=== PATIENT | female | born 1950 | race Caucasian/White ===

== ENCOUNTER → 2020-01-16 14:40 | Outpatient (CLI) | payer MEDICARE, OTHER, SELFPAY ==
[2020-01-16 13:20] VITALS: BMI 31.0
== END ==
PROVIDERS: Referring Provider Physician Assistant Surgical; Visit Provider Physician Assistant Surgical
DX: U07.1 COVID-19 (principal)
CPT/HCPCS: 87635; U0003

== ENCOUNTER 2020-01-18 13:44 | Inpatient (IN) | payer MEDICARE, OTHER, SELFPAY ==
[2020-01-16 13:20] VITALS: BMI 31.0
[2020-01-18] VITALS (9 sets, daily range): BP systolic 118–146; BP diastolic 46–90; PULSE 71–89; RESP 17–26; TEMP 36–37.1; O2SAT 92–97; BMI 30.5
--- NOTE | 2020-01-18 13:53 | RAD_ITS ---
STUDY: X-RAY CHEST REASON FOR EXAM: Female, 69 years old. cough, fatigue, sob TECHNIQUE: AP COMPARISON: None. FINDINGS: EKG leads project over the chest. The lungs are clear and expanded. There is no demonstrated pleural abnormality. Normal size heart. Normal mediastinum and jeremiah. Normal visualized pulmonary arteries. There is atherosclerotic tortuosity of the aortic arch and descending thoracic aorta. No acute bony process. Normal visualized ribs, clavicles, and shoulders. There is no demonstrated abnormality of the visualized soft tissue structures of the upper abdomen. RAD/Chest 1 View (Portable) IMPRESSION: No airspace consolidation or pleural effusion. Electronically Signed: Eduin Tinsley MD (Brooks) at 14:49 EST , Service support ,
--- NOTE | 2020-01-18 13:53 | EKG12_ITS ---
Test Reason : SOB Blood Pressure : / mmHG Vent. Rate : 088 BPM Atrial Rate : 088 BPM P-R Int : 140 ms QRS Dur : 092 ms QT Int : 368 ms P-R-T Axes : 056 012 028 degrees QTc Int : 445 ms Normal sinus rhythm Normal ECG Confirmed by XIN ZAMORA, MARGARITA ([id number]), story editor HEDY JUSTIN ([id number]) on 01/20/2020 9:19:08 AM Referred By: RIGO Confirmed By:MARGARITA LAUREN MD
--- NOTE | 2020-01-18 13:54 | ED.VIS.GEN ---
History of Present Illness Chief Complaint: Cough Informant: Patient Onset: Days Context: Gradual Onset Timing: Continuous Current Severity: Moderate Maximum Severity: Severe Narrative: The patient is a 69-year-old female with medical history significant for anxiety, asthma, and thyroid disease who presents to the emergency department with Covid symptoms. Patient states she has been sick for about a week. She states that her symptoms initially started with fever, chills, mild cough. She said change in taste and smell. For the past few days, she has had diarrhea. She states that today, she began to have increasing right-sided chest pain. She is also had pain with taking a deep breath. She feels like she cannot catch her breath. She has mild nausea but no vomiting. She states that she has not used her inhaler at home. Her son-in-law who she was also exposed to tested positive for Covid this weekend. She was seen at urgent care and had a test done, but it is currently pending. She is not on any immunosuppressants. Prior similar symptoms: No Recent Illness/Hospitalization: No Past Medical History - Allergies and Home Meds Allergies/Adverse Reactions: Allergies butorphanol [From Stadol] Allergy (Unknown, Verified 01/18/20 13:44) unknown codeine Allergy (Unknown, Verified 01/18/20 13:44) unknown morphine Allergy (Unknown, Verified 01/18/20 13:44) unknown Primary Care Physician: Herbert Esquivel,Out of [NON-STAFF] - Prior records reviewed: Yes Past Medical History: - - Asthma, thyroid disease, GERD Surgical History: noncontributory Smoking Status: Never smoker Review of Systems General: Reports: Chills, Fever. Denies: Sweats Eyes: Denies: Visual changes - bilaterally, Diplopia ENT: Denies: Rhinorrhea, Sore throat Cardiovascular: Denies: Chest pain, Palpitations Respiratory: Reports: Dyspnea, Cough. Denies: Dyspnea on exertion Gastrointestinal: Reports: Nausea, Diarrhea. Denies: Abdominal pain, Vomiting, Melena, Hematochezia Genitourinary: Denies: Dysuria, Hematuria, Frequency Musculoskeletal: Denies: Back pain, Extremity Pain Skin: Denies: Rash, Wounds Neurological: Denies: Headache, Weakness, Numbness Physical Exam Vital Signs/Narrative: Vital Signs Temp Pulse Resp BP Pulse Ox 01/18/20 13:45 96.8 F L 89 18 138/46 H 93 Inital Vital Signs reviewed: Yes General: Well nourished, Well developed, No Acute Distress Head: Normocephalic, Atraumatic Eyes: Perrl, EOMI ENT: No rhinorrhea, Dry mucous membranes Neck: Supple, Nontender Cardiovascular: Regular rate, Regular rhythm, No murmurs Respiratory: No distress, Chest nontender, Wheezing, Diminished, Decreased Air Movement Abdomen: Soft, Nontender, Nondistended, Normal bowel sounds Back: Nontender, Normal Inspection Extremities: Nontender, No edema Skin: Normal color, No rash Neurological: Alert, Oriented x3, Cranial nerves II-XII grossly intact, Normal Strength, Normal Sensation Psychological: Normal affect, Normal Mood Diagnostic/Tx/Re-eval Clinical Impression(s) from Imaging Studies Chest X-Ray 01/18/20 13:53 IMPRESSION: No airspace consolidation or pleural effusion. Electronically Signed: Eduin Tinsley MD (Brooks) at 14:49 EST , Service support , Chest CTA 01/18/20 14:37 Abnormal Lab Results 01/18/20 01/18/20 01/18/20 14:05 14:05 14:05 WBC 5.9 RBC 5.46 H Hgb 15.1 H Hct 47.6 H MCV 87.2 MCH 27.7 MCHC 31.7 L RDW Std Deviation 38.6 RDW Coeff of Shirlene 12.1 Plt Count 164 MPV 11.7 Immature Gran % (Auto) 0.200 Neut % (Auto) 68.4 Lymph % (Auto) 19.1 [place] % (Auto) 11.6 H Eos % (Auto) 0.2 Baso % (Auto) 0.5 Absolute Neuts (auto) 4.1 Absolute Lymphs (auto) 1.13 Nucleated RBC % 0 Fibrinogen 680 H D-Dimer Quant (PE/DVT) 0.72 H* Sodium 139 Potassium 3.9 Chloride 104 Carbon Dioxide 30.0 Anion Gap 5 BUN 11 Creatinine 0.90 Estim Creat Clear Calc 55.75 Est GFR (MDRD) Af Amer 80 Est GFR (MDRD) Non-Af 66 BUN/Creatinine Ratio 12.3 Glucose 116 H Lactic Acid Calcium 9.2 Total Bilirubin 0.50 AST 31 ALT 30 Alkaline Phosphatase 117 Troponin I < 0.015 Total Protein 7.8 Albumin 3.5 Globulin 4.3 H Albumin/Globulin Ratio 0.8 L Procalcitonin 01/18/20 01/18/20 14:05 14:05 WBC RBC Hgb Hct MCV MCH MCHC RDW Std Deviation RDW Coeff of Shirlene Plt Count MPV Immature Gran % (Auto) Neut % (Auto) Lymph % (Auto) [place] % (Auto) Eos % (Auto) Baso % (Auto) Absolute Neuts (auto) Absolute Lymphs (auto) Nucleated RBC % Fibrinogen D-Dimer Quant (PE/DVT) Sodium Potassium Chloride Carbon Dioxide Anion Gap BUN Creatinine Estim Creat Clear Calc Est GFR (MDRD) Af Amer Est GFR (MDRD) Non-Af BUN/Creatinine Ratio Glucose Lactic Acid 1.8 Calcium Total Bilirubin AST ALT Alkaline Phosphatase Troponin I Total Protein Albumin Globulin Albumin/Globulin Ratio Procalcitonin < 0.04 - Rhythm Strip Rhythm Strip: Sinus Rhythm Rate: 90 Ectopy: None - EKG Initial EKG Interpretation: Sinus Rhythm, No Acute Injury Pattern Prior: Unchanged - Medical Decision Making Patient presents with cough and shortness of breath. She has audible wheezing and diminished air movement. We did attempt an inhaler, but she had persistent bronchospasm and cough. This obviously is not helping. The patient does have history of asthma. She was given IV Decadron and fluids. Covid was obtained was positive. Her D-dimer was also mildly elevated. We did obtain a CTA of the chest. There is no evidence of pulmonary embolus. She does have significant viral pneumonia. On reevaluation, the patient still has persistent audible wheezing and increased respiratory drive. With her underlying lung disease, along with her persistent tachypnea, I do feel that she would benefit from admission. The patient was discussed with the hospitalist. Impression 1. COVID-19 2. Bilateral viral pneumonia 3. Persistent bronchospasm and tachypnea ED Disposition - Plan for ED Patient: Referrals: [facility] Doctor,Out of [NON-STAFF] -
--- NOTE | 2020-01-18 13:56 | NURSING ---
NO OLD EKGS
[2020-01-18] MEDS: Acetaminophen 500 MG Tablet 1000 MG PO (14:12)
[2020-01-18] MEDS: 0.9% Normal Saline 1,000 ML 125 ML IV ×2 (14:13→18:48)
[2020-01-18 14:23] LABS: Absolute Lymphocyte Count 1.13 X10^3/uL (0.83-4.51); Absolute Neutrophil Count 4.1 X10^3/uL (2.0-7.7); Basophil# 0.03 X10^3/uL; Basophil% 0.5 % (0-1); Eosinophil# 0.01 X10^3/uL; Eosinophils% 0.2 % (0-5); Hematocrit 47.6 % (37-47); Hemoglobin 15.1 g/dL (12.0-15.0); Lymphocyte # 1.13 X10^3/ul (4.0); Lymphocyte % 19.1 % (19-41); Mean Corp Hgb Conc 31.7 g/dL (32-36); Mean Corpuscular Hgb 27.7 pg (27.0-32.0); Mean Corpuscular Volume 87.2 fL (81-99); Mean Platelet Vol. 11.7 fl (6.2-12.0); Monocyte# 0.69 X10^3/uL; Monocyte% 11.6 % (0-10); NRBC Flagged by Analyzer 0 % (0-5); Neutrophil # 4.06 X10^3/uL (2.7-7.7); Neutrophil % 68.4 % (47-70); Platelet Count 164 K/mm3 (150-450); RBC Distribution Width CV 12.1 % (11.6-14.6); RBC Distribution Width SD 38.6 fl (35.1-43.9); Red Blood Count 5.46 M/mm3 (4.2-5.4); White Blood Count 5.9 K/mm3 (4.4-11.0)
[2020-01-18 14:32] LABS: Fibrinogen 680 mg/dl (203-444)
[2020-01-18 14:36] LABS: D-Dimer Quantitative (DVT/PE) 0.72 FEU/ug/m (0.27-0.49)
--- NOTE | 2020-01-18 14:37 | CT_ITS ---
STUDY: CTA CHEST REASON FOR EXAM: Female, 69 years old. DYSPNEA/ELEV DDIMER/COUGH/FEVER. Hx of asthma, GERD and hypothyroid RADIATION DOSAGE (If Supplied By Facility): CTDIvol = ( 13.80 ) mGy, DLP = ( 529.15 ) mGycm TECHNIQUE: The examination was performed with the intravenous administration of IV 100mL Isovue-370. Post-processing of the angiographic images was performed, with multiplanar reformation and 3D reconstruction. Individualized dose optimization techniques were used for this CT. COMPARISON: 01/18/2020 FINDINGS: Pulmonary artery and its branches demonstrate no evidence for filling defects to suggest acute pulmonary embolism. No evidence for aortic dissection Patchy areas of bilateral groundglass densities are seen concerning for atypical viral pneumonia. Few nodules in the right lower lobe also seen largest measuring up to 1.2 cm which need further assessment with follow-up imaging in 3-6 months. No evidence for mediastinal lymphadenopathy. No pericardial effusion. Significant wall thickening of the distal esophagus possibly relate with esophagitis however best assessed with endoscopy No acute abnormalities in the upper abdomen. Osseous structures demonstrate no acute abnormalities. Mild degenerative changes of the thoracic spine. IMPRESSION: No evidence for acute pulmonary embolism. No evidence for aortic dissection or aneurysm. Patchy areas of bilateral groundglass densities are seen highly concerning for atypical viral pneumonia. Few nodules in the right lower lobe also seen largest measuring up to 1.2 cm which need further assessment with follow-up imaging in 3-6 months. Electronically Signed: Obie Marino, at 15:24 EST Tel , Service support , CT/CTA Chest W/WO Contrast
--- NOTE | 2020-01-18 14:38 | NURSING ---
Critical d-dimer reported to Dr. Lopez
[2020-01-18 14:42] LABS: ALB/GLOB Ratio 0.8 RATIO (0.9-2.4); AST(SGOT) 31 U/L (15-37); Alanine Aminotransfer ALT/SGPT 30 U/L (13-56); Albumin, Serum 3.5 g/dL (3.2-5.0); Alkaline Phosphatase 117 U/L (45-117); Anion Gap 5 (5-15); BUN 11 mg/dL (7-18); BUN/Creat Ratio 12.3 RATIO (10-20); Calcium,Total 9.2 mg/dL (8.5-10.1); Chloride 104 mmol/L (98-107); EST Glomerular Filtration Rate 66 mL/min (>60); Est Glom Filt Rate - Afr Amer 80 mL/min (>60); Estimated Creatinine Clearance 55.75 ml/min; Globulin 4.3 g/dL (2.2-4.2); Glucose 116 mg/dL (74-106); Potassium 3.9 mmol/L (3.5-5.1); Protein, Total 7.8 g/dL (6.4-8.2); Sodium Level 139 mmol/L (136-145)
[2020-01-18 14:53] LABS: Lactic Acid 1.8 mmol/L (0.4-1.9)
[2020-01-18 15:08] LABS: Procalcitonin < 0.04 ng/mL (0.00-0.09)
[2020-01-18] MEDS: dexAMETHasone 4 MG/ML Vial 6 MG IV (15:12)
[2020-01-18] MEDS: Ipratropium/Albuterol Sulfate 3 ML AMPUL.NEB INHALATION ×2 (15:30→19:40)
--- NOTE | 2020-01-18 15:39 | NURSING ---
DR ROLDAN FOR DR SIERRA
--- NOTE | 2020-01-18 15:39 | NURSING ---
MS2 COVID COVID PNEUMONIA, BRONCHOSPASM JAMAR
--- NOTE | 2020-01-18 15:46 | PCM.HP.STD ---
History of Present Illness Date of Admission: 01/18/20 Chief Complaint: SOB The patient is a 69 year old F with a PMH as below who presents to the hospital with cough and worsening shortness of breath that started about a week ago. Her son-in-law also tested positive for Covid this weekend. She initially had a fever, chills, and a mild cough and now she also admits to having a change in her taste in her smell. She is also had diarrhea for the last few days and then she started having increasing right-sided chest pain, and now she feels significantly short of breath. She does not require oxygen at the moment but she is tachypneic. Her D-dimer is slightly elevated though not significant for age. She did have a CTA of her chest which was unremarkable for pulmonary embolism, but it did demonstrate bilateral groundglass opacities. She was given breathing treatments and a dose of Decadron in the ER. 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 Denies: Weight Change HEENT: Denies: Head Aches, Sinus Congestion, Sinus Drainage Cardiovascular: Denies: Chest Pain, Palpitations Respiratory: Reports: Cough, Shortness of Breath. Denies: Shortness of breath at rest, Sputum production Gastrointestinal: Reports: Diarrhea, Nausea. Denies: Abdominal Pain, Vomiting Genitourinary: Denies: Dysuria Musculoskeletal: Denies: Joint Pain, Joint Tenderness Skin: Denies: Rash, Wounds Neurological: Denies: Numbness, Tingling, Focal weakness Psychiatric: Denies: Anxiety, Depression Hematologic/ Lymphatic: Denies: Easy Bruising, Easy Bleeding VTE Information - Inpt Only VTE Present on Admission: No - Physical Exam Vitals/I&O's: Vital Signs Temp Pulse Resp BP Pulse Ox 96.8 F L 89 26 H 118/79 93 01/18/20 13:45 01/18/20 15:29 01/18/20 15:29 01/18/20 15:15 01/18/20 15:15 Oxygen Delivery Method Room Air Weight: 195 lb Body Mass Index (BMI) 30.5 General: Alert, Oriented x3, Cooperative, No apparent distress HEENT: Atraumatic, PERRLA, EOMI, Normocephalic Oral: Dry Mucosa Neck: Supple, No JVD Lungs: No rhonchi, No wheeze, Diminished, Wheezes, - - Or air movement Cardiovascular: Regular rate, Regular Rhythm, Normal S1, Normal S2, No murmurs Abdomen: Soft, Non Tender, Non-Distended, No Hepato-splenomegaly Extremities: No edema, Capillary Refill Less than 3 Seconds Skin: No rashes, No breakdown Neurological: Neuro grossly intact, Sensory exam intact to light touch and pain Psych/Mental Status: Normal Affect, Appropriate Microbiology Past 72 Hours 01/18/20 14:15 Mucosa - Nose SARS-CoV-2 Antigen (Rapid) - Final SARS-CoV-2 (COVID 19) Laboratory Results 01/18/20 14:05: WBC 5.9, RBC 5.46 H, Hgb 15.1 H, Hct 47.6 H, MCV 87.2, MCH 27.7, MCHC 31.7 L, RDW Std Deviation 38.6, RDW Coeff of Shirlene 12.1, Plt Count 164, MPV 11.7, Immature Gran % (Auto) 0.200, Neut % (Auto) 68.4, Lymph % (Auto) 19.1, [place] % (Auto) 11.6 H, Eos % (Auto) 0.2, Baso % (Auto) 0.5, Absolute Neuts (auto) 4.1, Absolute Lymphs (auto) 1.13, Nucleated RBC % 0 01/18/20 14:05: Fibrinogen 680 H, D-Dimer Quant (PE/DVT) 0.72 H* 01/18/20 14:05: Sodium 139, Potassium 3.9, Chloride 104, Carbon Dioxide 30.0, Anion Gap 5, BUN 11, Creatinine 0.90, Estim Creat Clear Calc 55.75, Est GFR (MDRD) Af Amer 80, Est GFR (MDRD) Non-Af 66, BUN/Creatinine Ratio 12.3, Glucose 116 H, Calcium 9.2, Total Bilirubin 0.50, AST 31, ALT 30, Alkaline Phosphatase 117, Troponin I < 0.015, Total Protein 7.8, Albumin 3.5, Globulin 4.3 H, Albumin/Globulin Ratio 0.8 L 01/18/20 14:05: Lactic Acid 1.8 01/18/20 14:05: Procalcitonin < 0.04 Current Medications Sodium Chloride () 1,000 mls @ 125 mls/hr IV .Q8H JUAN JOSE Last Admin: 01/18/20 14:13 Dose: 125 mls/hr Documented by: Assessment/Plan All Active Problems (Last Reviewed 01/16/20 @ 13:21 by Emmanuel GALLOWAY, PA) Contact with or suspected exposure to other viral communicable disease (Acute) 1. Acute COVID-19 pneumonia/acute asthma exacerbation/viral gastroenteritis -Continue with Solu-Medrol for her asthma exacerbation as well as duo nebs -Solu-Medrol social cover the COVID-19 -We will continue with IV fluid secondary to dehydration from her diarrhea -CTA was negative for a PE 2. Hypothyroidism -Stable -Continue with Synthroid 3. GERD -Stable -Continue with PPI 4. Anxiety/depression -Stable -Continue with Cymbalta DVT: Lovenox OBSV E&M: [id number] Initial observation care L2
[2020-01-18] MEDS: 0.9% Saline Lock 10 ML Syringe IV (21:29)
[2020-01-19] VITALS (12 sets, daily range): BP systolic 132–158; BP diastolic 60–78; PULSE 68–86; RESP 16–22; TEMP 36.5–36.9; O2SAT 86–99
[2020-01-19] MEDS: 0.9% Saline Lock 10 ML Syringe IV ×2 (00:48→05:33)
[2020-01-19] MEDS: guaiFENesin 10 ML UDC (200MG/10ML) PO ×3 (00:55→10:43)
[2020-01-19] MEDS: Ipratropium/Albuterol Sulfate 3 ML AMPUL.NEB INHALATION ×5 (01:35→20:35)
[2020-01-19] MEDS: 0.9% Normal Saline 1,000 ML 125 ML IV ×2 (03:18→10:43)
[2020-01-19] MEDS: Enoxaparin 40 MG/0.4 ML Syringe SC ×2 (05:33→20:05)
[2020-01-19 05:37] LABS: Absolute Lymphocyte Count 0.52 X10^3/uL (0.83-4.51); Absolute Neutrophil Count 1.7 X10^3/uL (2.0-7.7); Hematocrit 39.7 % (37-47); Lymphocyte # 0.52 X10^3/ul (4.0); Lymphocyte % 21.5 % (19-41); Mean Corp Hgb Conc 32.7 g/dL (32-36); Mean Corpuscular Hgb 28.3 pg (27.0-32.0); Mean Corpuscular Volume 86.3 fL (81-99); Mean Platelet Vol. 11.8 fl (6.2-12.0); Monocyte# 0.16 X10^3/uL; Monocyte% 6.6 % (0-10); NRBC Flagged by Analyzer 0 % (0-5); Neutrophil # 1.74 X10^3/uL (2.7-7.7); Neutrophil % 71.9 % (47-70); POSITIVE DIFFERENTIAL YES; Platelet Count 155 K/mm3 (150-450); RBC Distribution Width SD 38.5 fl (35.1-43.9); White Blood Count 2.4 K/mm3 (4.4-11.0)
[2020-01-19 05:38] LABS: Differential Indicated SCAN CRITERIA MET
[2020-01-19 05:54] LABS: Anion Gap 7 (5-15); BUN 12 mg/dL (7-18); BUN/Creat Ratio 19.7 RATIO (10-20); Calcium,Total 8.2 mg/dL (8.5-10.1); Chloride 109 mmol/L (98-107); Creatinine, Serum 0.61 mg/dL (0.55-1.02); EST Glomerular Filtration Rate 103 mL/min (>60); Est Glom Filt Rate - Afr Amer 125 mL/min (>60); Estimated Creatinine Clearance 50.18 ml/min; Glucose 144 mg/dL (74-106); Potassium 4.1 mmol/L (3.5-5.1); Sodium Level 140 mmol/L (136-145)
[2020-01-19] MEDS: Acetaminophen 325 MG Tablet 650 MG PO (10:43)
--- NOTE | 2020-01-19 10:45 | PCM.PN.HOSP ---
Subjective: Patient seen and examined. SHe looked very weak and said she felt so. She was still short of breath and very lethargic. She denied fever, chills, but admitted to a cough which was nonproductive and was not improving. Review of systems was otherwise negative. She is on 3L of oxygen. Review of systems otherwise negative. She has otherwise remained hemodynamically stable. Vitals/I&O's: Vital Signs Temp Pulse Resp BP Pulse Ox 98.4 F 69 16 132/71 H 92 01/19/20 09:22 01/19/20 09:22 01/19/20 09:22 01/19/20 09:22 01/19/20 09:22 Oxygen Flow Rate (L/min) 3 Oxygen Delivery Method Nasal Cannula Weight: 195 lb Body Mass Index (BMI) 30.5 Intake and Output for Last 24 Hours 01/17/20 01/18/20 01/19/20 23:59 23:59 23:59 Intake Total 689.58 / 689.58 2076.08 / 2076.08 Balance 689.58 / 689.58 / General: Alert, Cooperative, No apparent distress, Lethargic HEENT: Atraumatic, PERRLA, EOMI, Normocephalic Oral: Dry Mucosa Neck: Supple, No JVD, Negative Carotid Bruits Lungs: - - diminished breath sounds bibasally, no wheezes or crackles. On 3L of oxygen by nasal canula Cardiovascular: Regular rate, Regular Rhythm, Normal S1, Normal S2, No murmurs Abdomen: Bowel Sounds Present, Soft, Non Tender, Non-Distended, No Hepato-splenomegaly Extremities: No clubbing, No cyanosis, No edema, Capillary Refill Less than 3 Seconds Skin: No rashes, No breakdown Musculoskeletal: No Tenderness to Palpation of Joints or Extremities Lymphatic: No Cervical, Supraclavicular, or Inguinal Adenopathy Neurological: Cranial nerves II-XII grossly intact, Neuro grossly intact, Motor Exam 5/5 strength throughout Psych/Mental Status: Normal Affect, Appropriate, Alert and oriented to time, place, person, mood and affect Microbiology Past 72 Hours 01/18/20 14:15 Mucosa - Nose SARS-CoV-2 Antigen (Rapid) - Final SARS-CoV-2 (COVID 19) Laboratory Results 01/18/20 14:05: WBC 5.9, RBC 5.46 H, Hgb 15.1 H, Hct 47.6 H, MCV 87.2, MCH 27.7, MCHC 31.7 L, RDW Std Deviation 38.6, RDW Coeff of Shirlene 12.1, Plt Count 164, MPV 11.7, Immature Gran % (Auto) 0.200, Neut % (Auto) 68.4, Lymph % (Auto) 19.1, [place] % (Auto) 11.6 H, Eos % (Auto) 0.2, Baso % (Auto) 0.5, Absolute Neuts (auto) 4.1, Absolute Lymphs (auto) 1.13, Nucleated RBC % 0 01/18/20 14:05: Fibrinogen 680 H, D-Dimer Quant (PE/DVT) 0.72 H* 01/18/20 14:05: Sodium 139, Potassium 3.9, Chloride 104, Carbon Dioxide 30.0, Anion Gap 5, BUN 11, Creatinine 0.90, Estim Creat Clear Calc 55.75, Est GFR (MDRD) Af Amer 80, Est GFR (MDRD) Non-Af 66, BUN/Creatinine Ratio 12.3, Glucose 116 H, Calcium 9.2, Total Bilirubin 0.50, AST 31, ALT 30, Alkaline Phosphatase 117, Troponin I < 0.015, Total Protein 7.8, Albumin 3.5, Globulin 4.3 H, Albumin/Globulin Ratio 0.8 L 01/18/20 14:05: Lactic Acid 1.8 01/18/20 14:05: Procalcitonin < 0.04 01/19/20 05:04: WBC 2.4 L, RBC 4.60, Hgb 13.0, Hct 39.7, MCV 86.3, MCH 28.3, MCHC 32.7, RDW Std Deviation 38.5, RDW Coeff of Shirlene 12.0, Plt Count 155, MPV 11.8, Immature Gran % (Auto) 0.000, Neut % (Auto) 71.9 H, Lymph % (Auto) 21.5, [place] % (Auto) 6.6, Eos % (Auto) 0.0, Baso % (Auto) 0.0, Absolute Neuts (auto) 1.7 L, Absolute Lymphs (auto) 0.52 L, Nucleated RBC % 0, Diff Path Review June01/19/20 05:04: Sodium 140, Potassium 4.1, Chloride 109 H, Carbon Dioxide 24.0, Anion Gap 7, BUN 12, Creatinine 0.61, Estim Creat Clear Calc 50.18, Est GFR (MDRD) Af Amer 125, Est GFR (MDRD) Non-Af 103, BUN/Creatinine Ratio 19.7, Glucose 144 H, Calcium 8.2 L Diagnostic Data Chest X-Ray 01/18/20 13:53 IMPRESSION: No airspace consolidation or pleural effusion. Electronically Signed: Eduin Tinsley MD (Brooks) at 14:49 EST , Service support , Chest CTA 01/18/20 14:37 Current Medications Acetaminophen (Acetaminophen 325 Mg Tablet) 650 mg PO Q6H PRN PRN PRN Reason: Pain Score 1-10/Temp > 100.7 F Last Admin: 01/19/20 10:43 Dose: 650 mg Documented by: Albuterol/Ipratropium (Ipratropium/Albuterol Sulfate 3 Ml Ampul.Neb) 3 ml INHALATION Q4HWA.RT JUAN JOSE Last Admin: 01/19/20 08:09 Dose: 3 ml Documented by: Enoxaparin Sodium (Enoxaparin 40 Mg/0.4 Ml Syringe) 40 mg SC DAILY@0600 [facility] Last Admin: 01/19/20 05:33 Dose: 40 mg Documented by: Guaifenesin (Guaifenesin 10 Ml Udc (200mg/10ml)) 10 ml PO Q4H PRN PRN PRN Reason: COUGH Last Admin: 01/19/20 10:43 Dose: 10 ml Documented by: Sodium Chloride () 1,000 mls @ 125 mls/hr IV .Q8H JUAN JOSE Last Admin: 01/19/20 10:43 Dose: 125 mls/hr Documented by: Sodium Chloride () 500 mls @ 15 mls/hr IV PRN PRN PRN Reason: Blood Transfusion Sodium Chloride () 250 mls @ 15 mls/hr IV .[id number] PRN PRN Reason: Saline Flush Melatonin (Melatonin 3 Mg Tablet) 3 mg PO QHS PRN PRN PRN Reason: INSOMNIA Methylprednisolone (Methylprednisolone 40 Mg/Ml Vial) 40 mg IV Q8 JUAN JOSE Last Admin: 01/19/20 05:33 Dose: 40 mg Documented by: Ondansetron HCl (Ondansetron 4 Mg/2 Ml Vial) 4 mg IV Q8H PRN PRN PRN Reason: NAUSEA/VOMITING Sodium Chloride (0.9% Saline Lock 10 Ml Syringe) 10 - 40 ml IV UD PRN PRN Reason: SALINE FLUSH Last Admin: 01/19/20 05:33 Dose: 10 ml Documented by: STROKE Vital Signs/Narrative: Vital Signs Temp Pulse Resp BP Pulse Ox 01/19/20 09:22 98.4 F 69 16 132/71 H 92 Medical Necessity - Tobacco Use Smoking Status: Former smoker Assessment/Plan All Active Problems (Last Reviewed 01/16/20 @ 13:21 by Emmanuel GALLOWAY, PA) Contact with or suspected exposure to other viral communicable disease (Acute) #acute hypoxic respiratory insufficiency due to COVID 19 infection Currently on 3 L of oxygen. Switch IV Solu-Medrol to IV Decadron. Titrate oxygen to maintain saturation above 90%. Breathing treatments with bronchodilators. Consult ID to determine if patient will benefit from remdesivir and convalescent plasma. Continue gentle hydration with IV fluids until patient is able to take adequate oral diet. #COVID 19: as above. #Hypothyroidism: on synthroid # GERD: on PPI #Anxiety and depression: on cymbalta DVT prophylaxis: lovenox Inpatient E&M: [id number] [facility] Hosp L3
--- NOTE | 2020-01-19 12:20 | CASEMGMT ---
RN CM Note: If home oxygen is needed, [facility] [place] would be able to be serviced here as well as in her area in [place]. [facility] is close to her home and services her area with [place]. [address] [place] [address] PH: [phone]
--- NOTE | 2020-01-19 12:22 | CASEMGMT ---
Addendum entered by Gaetano Alex 01/19/20 12:53: Pt's home address: [address] [place] [address]. Information given to registration for updating and billing. Original Note: RN CM Assessment Note Introduced role of CM to patient. Demographics, PCP verified. Patient is from [place] and is staying with her daughter and son-in-law until the New Year. Her family has been tested, but results are pending. COVID TESTING: @ [facility] on 01/16/20- pending Presentation: shortness of breath Diagnosis: suspected COVID-19. PCP: Dr. Cedric Calvillo [facility] Specialists: none Insurance: [facility] Preferred Pharmacy: [facility], [facility] Prescription Benefit: yes LNOK: daughter and son in law Living Arrangements: staying independently with her family in [place].Denies care needs. Tranportation: drives, but family is able to provide transportation DME: pt uses nebulizer @ home, but forgot it in [place]. If oxygen is needed, [employer] as they are [employer] company and have DME provider near her home town who can take over servicing. [facility] [address] [place] [id number] PHONE [phone] FAX: [phone] Patient DC Goals: return to daughter's home DC Plan: anticipate return to daughter's home on dc. Recommend oxygen testing on dc. CM available for discharge planning coordination. Contact CM for any concerns/needs that may arise. Reagan GARCIA RN ACM
[2020-01-19 13:09] LABS: Pathologist Review Reviewed
--- NOTE | 2020-01-19 13:49 | CON.PCM_ITS ---
Problem List (1) COVID-19 Status: Acute Reason for Consult: covid Consulted by: Dr. Nicholas History of Present Illness: The patient is a 69 year old F presented with sx starting 01/10 of headache, fever, chills, diarrhea, aches, loss of taste/smell. Has been staying with daughter and son-in-law and their kids since early November. Daugher and son-in-law both sick with covid, recovering. She developed sx, tested (+) 01/14, worsening sx, came to ED, admitted, started on solumedrol, O2. Feeling a little better but not much. Full ROS Performed and neg except as noted above. - Medical History Surgical History: reviewed Allergies/Adverse Reactions: Allergies butorphanol [From Stadol] Allergy (Unknown, Verified 01/18/20 13:44) unknown codeine Allergy (Unknown, Verified 01/18/20 13:44) unknown morphine Allergy (Unknown, Verified 01/18/20 13:44) unknown Home Medications: Ambulatory Orders Medication Instructions Recorded Albuterol Sulfate [Albuterol 1 puff IH PRN PRN 01/18/20 Sulfate HFA] Duloxetine Hcl [Cymbalta] 60 mg PO QHS 01/18/20 Esomeprazole Mag Trihydrate 20 mg PO DAILY 01/18/20 [Nexium] Levothyroxine [Synthroid] 175 mcg PO DAILY 01/18/20 - Social History SMOKING STATUS:: Former smoker Vital Signs Temp Pulse Resp BP Pulse Ox 98.4 F 83 20 H 132/71 H 99 01/19/20 09:22 01/19/20 11:41 01/19/20 11:41 01/19/20 09:22 01/19/20 11:41 Oxygen Flow Rate (L/min) 3 Oxygen Delivery Method Nasal Cannula Weight: 88.451 kg Body Mass Index (BMI) 30.5 Microbiology Past 72 Hours 01/18/20 14:15 SARS-CoV-2 Antigen (Rapid) - Final Mucosa - Nose SARS-CoV-2 (COVID 19) Laboratory Tests Past 24 Hrs 01/18/20 01/18/20 01/18/20 14:05 14:05 14:05 WBC 5.9 RBC 5.46 H Hgb 15.1 H Hct 47.6 H MCV 87.2 MCH 27.7 MCHC 31.7 L RDW Std Deviation 38.6 RDW Coeff of Shirlene 12.1 Plt Count 164 MPV 11.7 Immature Gran % (Auto) 0.200 Neut % (Auto) 68.4 Lymph % (Auto) 19.1 Edgar % (Auto) 11.6 H Eos % (Auto) 0.2 Baso % (Auto) 0.5 Absolute Neuts (auto) 4.1 Absolute Lymphs (auto) 1.13 Nucleated RBC % 0 Diff Path Review Fibrinogen 680 H D-Dimer Quant (PE/DVT) 0.72 H* Sodium 139 Potassium 3.9 Chloride 104 Carbon Dioxide 30.0 Anion Gap 5 BUN 11 Creatinine 0.90 Estim Creat Clear Calc 55.75 Est GFR (MDRD) Af Amer 80 Est GFR (MDRD) Non-Af 66 BUN/Creatinine Ratio 12.3 Glucose 116 H Lactic Acid Calcium 9.2 Total Bilirubin 0.50 AST 31 ALT 30 Alkaline Phosphatase 117 Troponin I < 0.015 Total Protein 7.8 Albumin 3.5 Globulin 4.3 H Albumin/Globulin Ratio 0.8 L Procalcitonin 01/18/20 01/18/20 01/19/20 14:05 14:05 05:04 WBC 2.4 L RBC 4.60 Hgb 13.0 Hct 39.7 MCV 86.3 MCH 28.3 MCHC 32.7 RDW Std Deviation 38.5 RDW Coeff of Shirlene 12.0 Plt Count 155 MPV 11.8 Immature Gran % (Auto) 0.000 Neut % (Auto) 71.9 H Lymph % (Auto) 21.5 Edgar % (Auto) 6.6 Eos % (Auto) 0.0 Baso % (Auto) 0.0 Absolute Neuts (auto) 1.7 L Absolute Lymphs (auto) 0.52 L Nucleated RBC % 0 Diff Path Review Reviewed Fibrinogen D-Dimer Quant (PE/DVT) Sodium Potassium Chloride Carbon Dioxide Anion Gap BUN Creatinine Estim Creat Clear Calc Est GFR (MDRD) Af Amer Est GFR (MDRD) Non-Af BUN/Creatinine Ratio Glucose Lactic Acid 1.8 Calcium Total Bilirubin AST ALT Alkaline Phosphatase Troponin I Total Protein Albumin Globulin Albumin/Globulin Ratio Procalcitonin < 0.04 01/19/20 05:04 WBC RBC Hgb Hct MCV MCH MCHC RDW Std Deviation RDW Coeff of Shirlene Plt Count MPV Immature Gran % (Auto) Neut % (Auto) Lymph % (Auto) Edgar % (Auto) Eos % (Auto) Baso % (Auto) Absolute Neuts (auto) Absolute Lymphs (auto) Nucleated RBC % Diff Path Review Fibrinogen D-Dimer Quant (PE/DVT) Sodium 140 Potassium 4.1 Chloride 109 H Carbon Dioxide 24.0 Anion Gap 7 BUN 12 Creatinine 0.61 Estim Creat Clear Calc 50.18 Est GFR (MDRD) Af Amer 125 Est GFR (MDRD) Non-Af 103 BUN/Creatinine Ratio 19.7 Glucose 144 H Lactic Acid Calcium 8.2 L Total Bilirubin AST ALT Alkaline Phosphatase Troponin I Total Protein Albumin Globulin Albumin/Globulin Ratio Procalcitonin - Other Studies Radiology: [] reviewed Other Studies: [] Route of nutrition/ use of supplements: [] Nutritional Intake: [] IV Site: [] Bhatt Catheter: [] - Physical Exam General: Alert, Oriented x3, Cooperative HEENT: Atraumatic, PERRLA, EOMI Neck: Supple, No Nodes Lungs: Diminished Cardiovascular: Regular rate, Regular Rhythm Abdomen: Soft, Non Tender, Non-Distended Extremities: No edema Skin: No rashes IV Site: Peripheral, without redness Musculoskeletal: No Tenderness to Palpation of Joints or Extremities Neurological: Cranial nerves II-XII grossly intact - Assessment/Plan Antibiotics: [] Assessment/Plan: [] covid with hypoxia - sx started 01/10. CT neg for PE. D-dimer 0.7. On 3L today. Will change steroids to dex given better outcomes seen in covid. Will start remdesivir. Reviewed EUA and risks/benefits of convalescent plasma, and we agree to start. Will follow, thank you.
[2020-01-19] MEDS: dexAMETHasone 4 MG Tablet 6 MG PO (13:58)
[2020-01-20] VITALS (11 sets, daily range): BP systolic 117–138; BP diastolic 59–108; PULSE 76–92; RESP 14–24; TEMP 36.7–38.1; O2SAT 92–97
[2020-01-20] MEDS: 0.9% Normal Saline 1,000 ML 125 ML IV ×3 (00:27→18:52)
[2020-01-20] MEDS: guaiFENesin 10 ML UDC (200MG/10ML) PO (01:23)
[2020-01-20] MEDS: Acetaminophen 325 MG Tablet 650 MG PO (01:23)
[2020-01-20] MEDS: 0.9% Saline Lock 10 ML Syringe IV (06:30)
[2020-01-20] MEDS: Ondansetron 4 MG/2 ML Vial IV (06:30)
[2020-01-20 06:57] LABS: Hematocrit 38.9 % (37-47); Hemoglobin 12.8 g/dL (12.0-15.0); Mean Corp Hgb Conc 32.9 g/dL (32-36); Mean Corpuscular Hgb 28.9 pg (27.0-32.0); Mean Corpuscular Volume 87.8 fL (81-99); Mean Platelet Vol. 12.1 fl (6.2-12.0); Platelet Count 202 K/mm3 (150-450); RBC Distribution Width CV 12.4 % (11.6-14.6); RBC Distribution Width SD 40.2 fl (35.1-43.9); Red Blood Count 4.43 M/mm3 (4.2-5.4); White Blood Count 14.1 K/mm3 (4.4-11.0)
[2020-01-20 07:26] LABS: AST(SGOT) 28 U/L (15-37); Alanine Aminotransfer ALT/SGPT 28 U/L (13-56); Albumin, Serum 3.1 g/dL (3.2-5.0); Alkaline Phosphatase 90 U/L (45-117); Anion Gap 6 (5-15); BUN 14 mg/dL (7-18); BUN/Creat Ratio 19.2 RATIO (10-20); Calcium,Total 8.4 mg/dL (8.5-10.1); Chloride 110 mmol/L (98-107); Creatinine, Serum 0.73 mg/dL (0.55-1.02); EST Glomerular Filtration Rate 84 mL/min (>60); Est Glom Filt Rate - Afr Amer 101 mL/min (>60); Estimated Creatinine Clearance 50.18 ml/min; Globulin 3.1 g/dL (2.2-4.2); Glucose 98 mg/dL (74-106); Potassium 3.8 mmol/L (3.5-5.1); Protein, Total 6.2 g/dL (6.4-8.2); Sodium Level 143 mmol/L (136-145)
[2020-01-20] MEDS: Ipratropium/Albuterol Sulfate 3 ML AMPUL.NEB INHALATION ×5 (07:50→23:37)
--- NOTE | 2020-01-20 07:53 | PCM.PN.HOSP ---
Patient Problems: Active and Suspected Problems (Last Reviewed 01/16/20 @ 13:21 by Emmanuel GALLOWAY, PA) COVID-19 (Acute) Subjective: Patient seen and examined. She is feeling a bit better today. She remains on 3L of oxygen. She was started on remdesivir yesterday. Review of systems otherwise negative Vitals/I&O's: Vital Signs Temp Pulse Resp BP Pulse Ox 99.4 F H 79 20 H 138/70 H 93 01/20/20 06:18 01/20/20 06:18 01/20/20 06:18 01/20/20 06:18 01/20/20 06:18 Oxygen Flow Rate (L/min) 3 Oxygen Delivery Method Nasal Cannula Weight: 195 lb Body Mass Index (BMI) 30.5 Intake and Output for Last 24 Hours 01/18/20 01/19/20 01/20/20 23:59 23:59 23:59 Intake Total 689.58 / 689.58 3727.92 / 3847.92 470 / 470 Balance 689.58 / 689.58 3727.92 / 3847.92 470 / 470 General: Alert, Cooperative, No apparent distress HEENT: Atraumatic, PERRLA, EOMI, Normocephalic Oral: Dry Mucosa Neck: Supple, No JVD, Negative Carotid Bruits Lungs: - - diminished breath sounds bibasally, no wheezes or crackles. On 3L of oxygen by nasal canula Cardiovascular: Regular rate, Regular Rhythm, Normal S1, Normal S2, No murmurs Abdomen: Bowel Sounds Present, Soft, Non Tender, Non-Distended, No Hepato-splenomegaly Extremities: No clubbing, No cyanosis, No edema, Capillary Refill Less than 3 Seconds Skin: No rashes, No breakdown Musculoskeletal: No Tenderness to Palpation of Joints or Extremities Lymphatic: No Cervical, Supraclavicular, or Inguinal Adenopathy Neurological: Cranial nerves II-XII grossly intact, Neuro grossly intact, Motor Exam 5/5 strength throughout Psych/Mental Status: Normal Affect, Appropriate, Alert and oriented to time, place, person, mood and affect Microbiology Past 72 Hours 01/18/20 14:15 Mucosa - Nose SARS-CoV-2 Antigen (Rapid) - Final SARS-CoV-2 (COVID 19) Laboratory Results 01/19/20 04:58: Blood Type O NEGATIVE 01/19/20 05:04: Diff Path Review Reviewed 01/20/20 06:10: WBC 14.1 H, RBC 4.43, Hgb 12.8, Hct 38.9, MCV 87.8, MCH 28.9, MCHC 32.9, RDW Std Deviation 40.2, RDW Coeff of Shirlene 12.4, Plt Count 202, MPV 12.1 H 01/20/20 06:10: Sodium 143, Potassium 3.8, Chloride 110 H, Carbon Dioxide 27.0, Anion Gap 6, BUN 14, Creatinine 0.73, Estim Creat Clear Calc 50.18, Est GFR (MDRD) Af Amer 101, Est GFR (MDRD) Non-Af 84, BUN/Creatinine Ratio 19.2, Glucose 98, Calcium 8.4 L, Total Bilirubin 0.40, AST 28, ALT 28, Alkaline Phosphatase 90, Total Protein 6.2 L, Albumin 3.1 L, Globulin 3.1, Albumin/Globulin Ratio 1.0 Diagnostic Data Chest X-Ray 01/18/20 13:53 IMPRESSION: No airspace consolidation or pleural effusion. Electronically Signed: Eduin Tinsley MD ([place]) at 14:49 EST , Service support , Chest CTA 01/18/20 14:37 Current Medications Acetaminophen (Acetaminophen 325 Mg Tablet) 650 mg PO Q6H PRN PRN PRN Reason: Pain Score 1-10/Temp > 100.7 F Last Admin: 01/20/20 01:23 Dose: 650 mg Documented by: Albuterol/Ipratropium (Ipratropium/Albuterol Sulfate 3 Ml Ampul.Neb) 3 ml INHALATION Q4HWA.RT [facility] JOSE Last Admin: 01/20/20 07:50 Dose: 3 ml Documented by: Dexamethasone (Dexamethasone 4 Mg Tablet) 6 mg PO DAILY JUAN JOSE Stop: 01/27/20 10:01 Last Admin: 01/19/20 13:58 Dose: 6 mg Documented by: Duloxetine HCl (Duloxetine Hcl 60 Mg Capsule) 60 mg PO QHS JUAN JOSE Enoxaparin Sodium (Enoxaparin 40 Mg/0.4 Ml Syringe) 40 mg SC Q12 JUAN JOSE Last Admin: 01/19/20 20:05 Dose: 40 mg Documented by: Guaifenesin (Guaifenesin 10 Ml Udc (200mg/10ml)) 10 ml PO Q4H PRN PRN PRN Reason: COUGH Last Admin: 01/20/20 01:23 Dose: 10 ml Documented by: Sodium Chloride () 1,000 mls @ 125 mls/hr IV .Q8H JUAN JOSE Last Admin: 01/20/20 00:27 Dose: 125 mls/hr Documented by: Sodium Chloride () 500 mls @ 15 mls/hr IV PRN PRN PRN Reason: Blood Transfusion Sodium Chloride () 250 mls @ 15 mls/hr IV .[id number] PRN PRN Reason: Saline Flush Remdesivir 100 mg/ Sodium (Chloride) 250 mls @ 125 mls/hr IV DAILY [facility]; Protocol Stop: 01/23/20 11:59 Melatonin (Melatonin 3 Mg Tablet) 3 mg PO QHS PRN PRN PRN Reason: INSOMNIA Ondansetron HCl (Ondansetron 4 Mg/2 Ml Vial) 4 mg IV Q8H PRN PRN PRN Reason: NAUSEA/VOMITING Last Admin: 01/20/20 06:30 Dose: 4 mg Documented by: Sodium Chloride (0.9% Saline Lock 10 Ml Syringe) 10 - 40 ml IV UD PRN PRN Reason: SALINE FLUSH Last Admin: 01/20/20 06:30 Dose: 10 ml Documented by: STROKE Vital Signs/Narrative: Vital Signs Temp Pulse Resp BP Pulse Ox 01/20/20 06:18 99.4 F H 79 20 H 138/70 H 93 Medical Necessity - Tobacco Use Smoking Status: Former smoker Assessment/Plan All Active Problems (Last Reviewed 01/16/20 @ 13:21 by Emmanuel GALLOWAY, PA) COVID-19 (Acute) Contact with or suspected exposure to other viral communicable disease (Acute) #acute hypoxic respiratory insufficiency due to COVID 19 infection Currently on 3 L of oxygen. on PO decadron Titrate oxygen to maintain saturation above 90%. Breathing treatments with bronchodilators. ID on board; patient started on remdesivir. to receive convalescent plasma today Consult ID to determine if patient will benefit from remdesivir and convalescent plasma. Continue gentle hydration with IV fluids until patient is able to take adequate oral diet. #COVID 19: as above. #Hypothyroidism: on synthroid # GERD: on PPI #Anxiety and depression: on cymbalta DVT prophylaxis: lovenox Inpatient E&M: [id number] [facility] Hosp L3
[2020-01-20] MEDS: dexAMETHasone 4 MG Tablet 6 MG PO (09:23)
[2020-01-20] MEDS: Enoxaparin 40 MG/0.4 ML Syringe SC ×2 (09:26→21:28)
--- NOTE | 2020-01-20 12:03 | PN.ID_ITS ---
Patient Problems: Active and Suspected Problems (Last Reviewed 01/16/20 @ 13:21 by Emmanuel GALLOWAY, PA) COVID-19 (Acute) Subjective: Feeling better, still some cough and fever, nausea overnight. - Physical Exam Vitals/I&O's: Vital Signs Temp Pulse Resp BP Pulse Ox 100.4 F H 92 16 130/66 H 95 01/20/20 10:58 01/20/20 10:58 01/20/20 10:58 01/20/20 10:58 01/20/20 10:58 Oxygen Flow Rate (L/min) 5 Oxygen Delivery Method Nasal Cannula Weight: 88.451 kg Body Mass Index (BMI) 30.5 Intake and Output for Last 24 Hours 01/18/20 01/19/20 01/20/20 23:59 23:59 23:59 Intake Total 689.58 / 689.58 3727.92 / 3847.92 1680.42 / 1680.42 Balance 689.58 / 689.58 3727.92 / 3847.92 1680.42 / 1680.42 General: Alert, Cooperative, No apparent distress Lungs: Diminished Cardiovascular: Regular rate, Regular Rhythm Abdomen: Soft, Non Tender, Non-Distended Skin: No rashes Microbiology Past 72 Hours 01/18/20 14:15 Mucosa - Nose SARS-CoV-2 Antigen (Rapid) - Final SARS-CoV-2 (COVID 19) Laboratory Results 01/19/20 04:58: Blood Type O NEGATIVE 01/19/20 05:04: Diff Path Review Reviewed 01/20/20 06:10: WBC 14.1 H, RBC 4.43, Hgb 12.8, Hct 38.9, MCV 87.8, MCH 28.9, MCHC 32.9, RDW Std Deviation 40.2, RDW Coeff of Shirlene 12.4, Plt Count 202, MPV 12.1 H 01/20/20 06:10: Sodium 143, Potassium 3.8, Chloride 110 H, Carbon Dioxide 27.0, Anion Gap 6, BUN 14, Creatinine 0.73, Estim Creat Clear Calc 50.18, Est GFR (MDRD) Af Amer 101, Est GFR (MDRD) Non-Af 84, BUN/Creatinine Ratio 19.2, Glucose 98, Calcium 8.4 L, Total Bilirubin 0.40, AST 28, ALT 28, Alkaline Phosphatase 90, Total Protein 6.2 L, Albumin 3.1 L, Globulin 3.1, Albumin/Globulin Ratio 1.0 Current Medications Acetaminophen (Acetaminophen 325 Mg Tablet) 650 mg PO Q6H PRN PRN PRN Reason: Pain Score 1-10/Temp > 100.7 F Last Admin: 01/20/20 01:23 Dose: 650 mg Documented by: Albuterol/Ipratropium (Ipratropium/Albuterol Sulfate 3 Ml Ampul.Neb) 3 ml INHALATION Q4HWA.RT JUAN JOSE Last Admin: 01/20/20 10:44 Dose: 3 ml Documented by: Dexamethasone (Dexamethasone 4 Mg Tablet) 6 mg PO DAILY JUAN JOSE Stop: 01/27/20 10:01 Last Admin: 01/20/20 09:23 Dose: 6 mg Documented by: Duloxetine HCl (Duloxetine Hcl 60 Mg Capsule) 60 mg PO QHS JUAN JOSE Enoxaparin Sodium (Enoxaparin 40 Mg/0.4 Ml Syringe) 40 mg SC Q12 [facility] Last Admin: 01/20/20 09:26 Dose: 40 mg Documented by: Guaifenesin (Guaifenesin 10 Ml Udc (200mg/10ml)) 10 ml PO Q4H PRN PRN PRN Reason: COUGH Last Admin: 01/20/20 01:23 Dose: 10 ml Documented by: Sodium Chloride () 1,000 mls @ 125 mls/hr IV .Q8H JUAN JOSE Last Infusion: 01/20/20 11:03 Dose: 0 mls/hr Documented by: Sodium Chloride () 500 mls @ 15 mls/hr IV PRN PRN PRN Reason: Blood Transfusion Sodium Chloride () 250 mls @ 15 mls/hr IV .[id number] PRN PRN Reason: Saline Flush Remdesivir 100 mg/ Sodium (Chloride) 250 mls @ 125 mls/hr IV DAILY [facility]; Protocol Stop: 01/23/20 11:59 Last Admin: 01/20/20 11:00 Dose: 125 mls/hr Documented by: Melatonin (Melatonin 3 Mg Tablet) 3 mg PO QHS PRN PRN PRN Reason: INSOMNIA Ondansetron HCl (Ondansetron 4 Mg/2 Ml Vial) 4 mg IV Q8H PRN PRN PRN Reason: NAUSEA/VOMITING Last Admin: 12/01/20 06:30 Dose: 4 mg Documented by: Sodium Chloride (0.9% Saline Lock 10 Ml Syringe) 10 - 40 ml IV UD PRN PRN Reason: SALINE FLUSH Last Admin: 01/20/20 06:30 Dose: 10 ml Documented by: Medical Necessity - Tobacco Use Smoking Status: Former smoker Route of nutrition/ use of supplements: [] Nutritional Intake: [] IV Site: [] Bhatt Catheter: [] - Assessment/Plan Antibiotics: [] Assessment/Plan: [] covid with hypoxia - sx started 01/10. CT neg for PE. D-dimer 0.7. On dex, remdesivir, got plasma 01/19. On 6L this AM, feeling better. Lovenox 40mg bid. Will follow
--- NOTE | 2020-01-20 13:19 | NURSING ---
RN CM Assessment Called patient bedside phone- No answer. Called patient cell phone and answered. Introduced role of RN CM to patient.? Patient is alert, oriented and able?to participate in RN CM Assessment. ?Care providers, pharmacy, and demographics verified. Admit Dx: COVID, Asthma Exacerbation Re-Admit: No Barriers/Issues: Patient is currently down visiting her Dtr, plan to stay until the 1st of the year or until she is completely improved. She will return to her Dtr Beba You's home: [facility] [address], [place] [address]. This is a split level home and patient has 6 steps down to her room and 2 steps to enter home. States she is feeling weak and needs to regain her strength so plans to occupy the family area to herself with bathroom. States Dtr, son in law, two gndsons- 14yo and 8yo all live in the home and have recently all tested positive for COVID. Patient is able to quarantine herself in the home from family. Patient was tested for COVID at [facility] now clinic 01/16/20. PCP: Cedric Calvillo Specialists: None Preferred Pharmacy: [facility] [place] Insurance: [employer] A/B, [facility] Rx Benefit:?Yes ?LNOK: Dtr Beba You LW/HPOA: None. Patient aware that she can return as an outpatient to complete advanced directives with social service department. Living Arrangements:?Patient lives alone in [place], [place]. She is down visiting her dtr- see note above. ADL?s: Independent with ambulation and ADLs Transportation: Patient drives. Either patient Dtr or son in law will transport upon DC. DME: None HHC: None SNF: None Goal: Home with Dtr, anticipates she will need home O2- this teletypewriter operator discussed DME companies with patient. Patient states that she would like to s/w her Dtr to see which DME company she has her CPAP through so she can use the same company and will let RNCM know. Denies any other issues or concerns with DC planning at this time. Voiced some concern regarding her current weakness and plan at home to stay in family area so she does not have to utilize any stairs. Aware RNCM will continue to follow for any possible recommendations for HH PT. DC PLAN: Home with home O2- f/u on DME company preference and possible HH PT. S. Jose, RNCM
[2020-01-20] MEDS: DULoxetine Hcl 60 MG Capsule PO (21:28)
[2020-01-21] VITALS (12 sets, daily range): BP systolic 129–147; BP diastolic 65–74; PULSE 64–85; RESP 14–30; TEMP 36.6–36.9; O2SAT 91–98
[2020-01-21] MEDS: 0.9% Normal Saline 1,000 ML 125 ML IV (02:50)
[2020-01-21 06:36] LABS: Hemoglobin 11.6 g/dL (12.0-15.0); Mean Corp Hgb Conc 33.1 g/dL (32-36); Mean Corpuscular Hgb 29.2 pg (27.0-32.0); Mean Corpuscular Volume 88.2 fL (81-99); Mean Platelet Vol. 11.8 fl (6.2-12.0); Platelet Count 182 K/mm3 (150-450); RBC Distribution Width CV 12.5 % (11.6-14.6); RBC Distribution Width SD 40.9 fl (35.1-43.9); Red Blood Count 3.97 M/mm3 (4.2-5.4); White Blood Count 7.9 K/mm3 (4.4-11.0)
[2020-01-21] MEDS: Ipratropium/Albuterol Sulfate 3 ML AMPUL.NEB INHALATION ×5 (06:51→23:00)
[2020-01-21 07:05] LABS: ALB/GLOB Ratio 0.8 RATIO (0.9-2.4); AST(SGOT) 24 U/L (15-37); Alanine Aminotransfer ALT/SGPT 23 U/L (13-56); Albumin, Serum 2.6 g/dL (3.2-5.0); Alkaline Phosphatase 73 U/L (45-117); Anion Gap 5 (5-15); BUN 12 mg/dL (7-18); BUN/Creat Ratio 19.5 RATIO (10-20); Calcium,Total 8.1 mg/dL (8.5-10.1); Chloride 110 mmol/L (98-107); Creatinine, Serum 0.61 mg/dL (0.55-1.02); EST Glomerular Filtration Rate 102 mL/min (>60); Est Glom Filt Rate - Afr Amer 123 mL/min (>60); Estimated Creatinine Clearance 50.18 ml/min; Globulin 3.3 g/dL (2.2-4.2); Glucose 93 mg/dL (74-106); Potassium 3.4 mmol/L (3.5-5.1); Protein, Total 5.9 g/dL (6.4-8.2); Sodium Level 141 mmol/L (136-145)
--- NOTE | 2020-01-21 07:43 | PN_ITS ---
Patient Problems: Active and Suspected Problems (Last Reviewed 01/16/20 @ 13:21 by Emmanuel GALLOWAY, PA) COVID-19 (Acute) Subjective: Patient seen and examined. She remains on 3L of oxygen. She still feels short of breath and lethargic. Review of systems was otherwise negative. Vitals/I&O's: Vital Signs Temp Pulse Resp BP Pulse Ox 98.3 F 79 16 131/65 H 93 01/21/20 03:15 01/21/20 06:51 01/21/20 06:51 01/21/20 03:15 01/21/20 06:51 Oxygen Flow Rate (L/min) 3 Oxygen Delivery Method Nasal Cannula Weight: 195 lb Body Mass Index (BMI) 30.5 Intake and Output for Last 24 Hours 01/19/20 01/20/20 01/21/20 23:59 23:59 23:59 Intake Total 3727.92 / 3847.92 2603.34 / 2803.34 1195.83 / 1195.83 Balance 3727.92 / 3847.92 2603.34 / 2803.34 1195.83 / 1195.83 General: Alert, Cooperative, No apparent distress, anxious HEENT: Atraumatic, PERRLA, EOMI, Normocephalic Oral: Dry Mucosa Neck: Supple, No JVD, Negative Carotid Bruits Lungs: - - diminished breath sounds bibasally, no wheezes or crackles. On 3L of oxygen by nasal canula Cardiovascular: Regular rate, Regular Rhythm, Normal S1, Normal S2, No murmurs Abdomen: Bowel Sounds Present, Soft, Non Tender, Non-Distended, No Hepato- splenomegaly Extremities: No clubbing, No cyanosis, No edema, Capillary Refill Less than 3 Seconds Skin: No rashes, No breakdown Musculoskeletal: No Tenderness to Palpation of Joints or Extremities Lymphatic: No Cervical, Supraclavicular, or Inguinal Adenopathy Neurological: Cranial nerves II-XII grossly intact, Neuro grossly intact, Motor Exam 5/5 strength throughout Psych/Mental Status: Normal Affect, Appropriate, Alert and oriented to time, place, person, mood and affect Microbiology Past 72 Hours 01/18/20 14:05 Blood Culture (Wb) - Left Hand Blood Culture - Preliminary No growth in 48 hours. 01/18/20 14:05 Blood Culture (Wb) #2 - Right Forearm Blood Culture - Preliminary No growth in 48 hours. 01/18/20 14:15 Mucosa - Nose SARS-CoV-2 Antigen (Rapid) - Final SARS-CoV-2 (COVID 19) Laboratory Results 01/21/20 06:12: WBC 7.9, RBC 3.97 L, Hgb 11.6 L, Hct 35.0 L, MCV 88.2, MCH 29.2, MCHC 33.1, RDW Std Deviation 40.9, RDW Coeff of Shirlene 12.5, Plt Count 182, MPV 11.8 01/21/20 06:12: Sodium 141, Potassium 3.4 L, Chloride 110 H, Carbon Dioxide 26.0, Anion Gap 5, BUN 12, Creatinine 0.61, Estim Creat Clear Calc 50.18, Est GFR (MDRD) Af Amer 123, Est GFR (MDRD) Non-Af 102, BUN/Creatinine Ratio 19.5, Glucose 93, Calcium 8.1 L, Total Bilirubin 0.40, AST 24, ALT 23, Alkaline Phosphatase 73, Total Protein 5.9 L, Albumin 2.6 L, Globulin 3.3, Albumin/Globulin Ratio 0.8 L Current Medications Acetaminophen (Acetaminophen 325 Mg Tablet) 650 mg PO Q6H PRN PRN PRN Reason: Pain Score 1-10/Temp > 100.7 F Last Admin: 01/20/20 01:23 Dose: 650 mg Documented by: Albuterol/Ipratropium (Ipratropium/Albuterol Sulfate 3 Ml Ampul.Neb) 3 ml INHALATION Q4HWA.RT [facility] Last Admin: 01/21/20 06:51 Dose: 3 ml Documented by: Dexamethasone (Dexamethasone 4 Mg Tablet) 6 mg PO DAILY [facility] Stop: 01/27/20 10:01 Last Admin: 01/20/20 09:23 Dose: 6 mg Documented by: Duloxetine HCl (Duloxetine Hcl 60 Mg Capsule) 60 mg PO QHS [facility] Last Admin: 01/20/20 21:28 Dose: 60 mg Documented by: Enoxaparin Sodium (Enoxaparin 40 Mg/0.4 Ml Syringe) 40 mg SC Q12 [facility] Last Admin: 01/20/20 21:28 Dose: 40 mg Documented by: Guaifenesin (Guaifenesin 10 Ml Udc (200mg/10ml)) 10 ml PO Q4H PRN PRN PRN Reason: COUGH Last Admin: 01/20/20 01:23 Dose: 10 ml Documented by: Sodium Chloride () 1,000 mls @ 125 mls/hr IV .Q8H [facility]UAN JOSE Last Admin: 01/21/20 02:50 Dose: 125 mls/hr Documented by: Sodium Chloride () 500 mls @ 15 mls/hr IV PRN PRN PRN Reason: Blood Transfusion Sodium Chloride () 250 mls @ 15 mls/hr IV .[id number] PRN PRN Reason: Saline Flush Remdesivir 100 mg/ Sodium (Chloride) 250 mls @ 125 mls/hr IV DAILY JUAN JOSE; Protocol Stop: 01/23/20 11:59 Last Infusion: 01/20/20 13:29 Dose: Infused Documented by: Melatonin (Melatonin 3 Mg Tablet) 3 mg PO QHS PRN PRN PRN Reason: INSOMNIA Ondansetron HCl (Ondansetron 4 Mg/2 Ml Vial) 4 mg IV Q8H PRN PRN PRN Reason: NAUSEA/VOMITING Last Admin: 01/20/20 06:30 Dose: 4 mg Documented by: Sodium Chloride (0.9% Saline Lock 10 Ml Syringe) 10 - 40 ml IV UD PRN PRN Reason: SALINE FLUSH Last Admin: 01/20/20 06:30 Dose: 10 ml Documented by: STROKE Vital Signs/Narrative: Vital Signs Pulse Resp Pulse Ox 01/21/20 06:51 79 16 93 Medical Necessity - Tobacco Use Smoking Status: Former smoker Assessment/Plan All Active Problems (Last Reviewed 01/16/20 @ 13:21 by Emmanuel GALLOWAY, PA) COVID-19 (Acute) Contact with or suspected exposure to other viral communicable disease (Acute) #acute hypoxic respiratory insufficiency due to COVID 19 infection * Currently on 3 L of oxygen. * on PO decadron * Titrate oxygen to maintain saturation above 90%. * Breathing treatments with bronchodilators. * ID on board; on remdesivir,and has received convalescent plasma * * #COVID 19: as above. #Hypothyroidism: on synthroid # GERD: on PPI #Anxiety and depression: on cymbalta DVT prophylaxis: lovenox Inpatient E&M: [id number] [facility] Hosp L2
[2020-01-21] MEDS: dexAMETHasone 4 MG Tablet 6 MG PO (09:35)
[2020-01-21] MEDS: Enoxaparin 40 MG/0.4 ML Syringe SC ×2 (09:36→21:57)
[2020-01-21] MEDS: MELATONIN 3 MG TABLET PO (21:56)
[2020-01-21] MEDS: DULoxetine Hcl 60 MG Capsule PO (21:58)
[2020-01-22] VITALS (20 sets, daily range): BP systolic 135–157; BP diastolic 60–82; PULSE 62–80; RESP 17–33; TEMP 36.3–37.1; O2SAT 72–98
[2020-01-22] MEDS: Ipratropium/Albuterol Sulfate 3 ML AMPUL.NEB INHALATION ×4 (07:39→19:55)
[2020-01-22 08:11] LABS: Hematocrit 37.4 % (37-47); Hemoglobin 12.4 g/dL (12.0-15.0); Mean Corp Hgb Conc 33.2 g/dL (32-36); Mean Corpuscular Volume 87.4 fL (81-99); Mean Platelet Vol. 11.6 fl (6.2-12.0); Platelet Count 223 K/mm3 (150-450); RBC Distribution Width CV 12.2 % (11.6-14.6); RBC Distribution Width SD 39.2 fl (35.1-43.9); Red Blood Count 4.28 M/mm3 (4.2-5.4); White Blood Count 9.1 K/mm3 (4.4-11.0)
[2020-01-22 08:32] LABS: ALB/GLOB Ratio 0.8 RATIO (0.9-2.4); AST(SGOT) 17 U/L (15-37); Alanine Aminotransfer ALT/SGPT 23 U/L (13-56); Albumin, Serum 2.6 g/dL (3.2-5.0); Alkaline Phosphatase 75 U/L (45-117); Anion Gap 4 (5-15); BUN 12 mg/dL (7-18); BUN/Creat Ratio 20.5 RATIO (10-20); Calcium,Total 8.6 mg/dL (8.5-10.1); Chloride 107 mmol/L (98-107); Creatinine, Serum 0.58 mg/dL (0.55-1.02); EST Glomerular Filtration Rate 108 mL/min (>60); Est Glom Filt Rate - Afr Amer 130 mL/min (>60); Estimated Creatinine Clearance 50.18 ml/min; Globulin 3.4 g/dL (2.2-4.2); Glucose 107 mg/dL (74-106); Potassium 3.6 mmol/L (3.5-5.1); Sodium Level 140 mmol/L (136-145)
[2020-01-22] MEDS: Enoxaparin 40 MG/0.4 ML Syringe SC ×2 (08:36→19:44)
[2020-01-22] MEDS: dexAMETHasone 4 MG Tablet 6 MG PO (08:37)
--- NOTE | 2020-01-22 09:05 | NUR.TO.PHY ---
Pt up to bedside commode. Sats dropped to 77% on HF @ 10 L. Increased Oxygen to 15 L HF. Got patient back to bed took 10 mins or so for sats to return to 90% on HF @ 15 L. notified awaiting orders
--- NOTE | 2020-01-22 12:42 | PCM.CONS.PUL ---
Reason for Consult Date of Consultation: 01/22/20 Reason for Consultation: Acute hypoxemic respiratory failure secondary to COVID-19 pneumonia History of Present Illness: The patient is a 69-year-old female, with a history as outlined below, who initially presented to the emergency department on January 17 with complaints of fevers, chills, cough and shortness of breath. The patient has had some recent sick contact exposure from others who have tested positive for Covid. The patient initially tested positive for coronavirus on January 14. On presentation to the emergency department, the patient was noted to be afebrile and hemodynamically stable. She was initially documented to be saturating in the mid 90s on room air. Laboratory evaluation revealed a D-dimer of 0.72. Chemistry profile was unremarkable. Liver function was within normal limits. Procalcitonin level was normal. The patient was subsequently admitted to the coronavirus cohort unit. She was seen in consultation by infectious diseases. To date, the patient has received convalescent plasma and remains on Decadron and remdesivir. In addition, the patient appears to have been on supplemental IV fluids until yesterday. Her oxygenation status has worsened with time. Past Medical History Medical History: Medical History (Last Reviewed 01/16/20 @ 13:21 by NILESH Wall) Thyroid disorder E07.9 Allergies butorphanol [From Stadol] Allergy (Unknown, Verified 01/18/20 13:44) unknown codeine Allergy (Unknown, Verified 01/18/20 13:44) unknown morphine Allergy (Unknown, Verified 01/18/20 13:44) unknown Home Medications: Ambulatory Orders Medication Instructions Recorded Albuterol Sulfate [Albuterol 1 puff IH PRN PRN 01/18/20 Sulfate HFA] Duloxetine Hcl [Cymbalta] 60 mg PO QHS 01/18/20 Esomeprazole Mag Trihydrate 20 mg PO DAILY 01/18/20 [Nexium] Levothyroxine [Synthroid] 175 mcg PO DAILY 01/18/20 Surgical History: arthroscopy, knee, hysterectomy [employer] History: endometrial cancer Smoking Status: Former smoker Alcohol: Occasional Drugs: None - *Family History Maternal History Items: Cancer, Heart Disease, Renal Disease Paternal History Items: Cancer, Heart Disease, Renal Disease Review of Systems Constitutional: Reports: Malaise, Weakness, Fatigue Eyes: Denies: Blurred vision, Double vision HEENT: Denies: Head Aches, Sinus Congestion, Sinus Drainage Cardiovascular: Denies: Chest Pain, Palpitations Respiratory: Reports: Cough, Shortness of Breath Gastrointestinal: Denies: Abdominal Pain, Nausea, Vomiting Genitourinary: Denies: Dysuria Musculoskeletal: Reports: Muscle pain Skin: Denies: Rash, Wounds Neurological: Denies: Numbness, Tingling, Focal weakness Psychiatric: Denies: Anxiety, Depression, Homicidal Ideations, Suicidal Ideations Hematologic/ Lymphatic: Denies: Easy Bruising, Easy Bleeding Patient Problems: Active and Suspected Problems (Last Reviewed 01/16/20 @ 13:21 by Emmanuel GALLOWAY, PA) COVID-19 (Acute) Objective: The patient's most recent lab work, culture data and imaging studies have all been personally reviewed. - Physical Exam Vitals/I&O's: Vital Signs Temp Pulse Resp BP Pulse Ox 97.4 F L 80 20 H 155/80 H 96 01/22/20 11:27 01/22/20 11:27 01/22/20 11:27 01/22/20 08:34 01/22/20 11:27 Oxygen Flow Rate (L/min) 10 Oxygen Delivery Method Nasal Cannula Weight: 195 lb Body Mass Index (BMI) 30.5 Intake and Output for Last 24 Hours 01/20/20 01/21/20 01/22/20 23:59 23:59 23:59 Intake Total 2603.34 / 2803.34 2312.50 / 2312.50 120 / 120 Output Total 350 / 350 Balance 2603.34 / 2803.34 2312.50 / 2312.50 -230 / -230 General: Alert, Cooperative, No apparent distress HEENT: Atraumatic, PERRLA, Normocephalic Oral: Moist Mucosa, No Gingival or Mucosal Lesions/ Ulcerations Neck: Supple, No Nodes, Trachea Midline Lungs: Diminished, Tachypneic, - - Mild conversational dyspnea Cardiovascular: Regular rate, Regular Rhythm Abdomen: Bowel Sounds Present, Soft, Non Tender, Obese Extremities: No clubbing, No cyanosis, No edema Skin: No breakdown Musculoskeletal: No Muscle Wasting Lymphatic: No Cervical, Supraclavicular, or Inguinal Adenopathy Neurological: Cranial nerves II-XII grossly intact, Neuro grossly intact Psych/Mental Status: Alert and oriented to time, place, person, mood and affect Labs (Last 48 Hours) 01/21/20 01/21/20 01/22/20 06:12 06:12 07:58 WBC 7.9 9.1 RBC 3.97 L 4.28 Hgb 11.6 L 12.4 Hct 35.0 L 37.4 MCV 88.2 87.4 MCH 29.2 29.0 MCHC 33.1 33.2 RDW Std Deviation 40.9 39.2 RDW Coeff of Shirlene 12.5 12.2 Plt Count 182 223 MPV 11.8 11.6 Sodium 141 Potassium 3.4 L Chloride 110 H Carbon Dioxide 26.0 Anion Gap 5 BUN 12 Creatinine 0.61 Estim Creat Clear Calc 50.18 Est GFR (MDRD) Af Amer 123 Est GFR (MDRD) Non-Af 102 BUN/Creatinine Ratio 19.5 Glucose 93 Calcium 8.1 L Total Bilirubin 0.40 AST 24 ALT 23 Alkaline Phosphatase 73 Total Protein 5.9 L Albumin 2.6 L Globulin 3.3 Albumin/Globulin Ratio 0.8 L 01/22/20 07:58 WBC RBC Hgb Hct MCV MCH MCHC RDW Std Deviation RDW Coeff of Shirlene Plt Count MPV Sodium 140 Potassium 3.6 Chloride 107 Carbon Dioxide 29.0 Anion Gap 4 L BUN 12 Creatinine 0.58 Estim Creat Clear Calc 50.18 Est GFR (MDRD) Af Amer 130 Est GFR (MDRD) Non-Af 108 BUN/Creatinine Ratio 20.5 H Glucose 107 H Calcium 8.6 Total Bilirubin 0.40 AST 17 ALT 23 Alkaline Phosphatase 75 Total Protein 6.0 L Albumin 2.6 L Globulin 3.4 Albumin/Globulin Ratio 0.8 L Microbiology 01/18/20 14:05 Blood Culture (Wb) - Left Hand Blood Culture - Preliminary No growth in 48 hours. 01/18/20 14:05 Blood Culture (Wb) #2 - Right Forearm Blood Culture - Preliminary No growth in 48 hours. Clinical Impression(s) from Imaging Studies Chest X-Ray 01/18/20 13:53 IMPRESSION: No airspace consolidation or pleural effusion. Electronically Signed: Eduin Tinsley MD ([place]) at 14:49 EST , Service support , Chest CTA 01/18/20 14:37 Current Medications Acetaminophen (Acetaminophen 325 Mg Tablet) 650 mg PO Q6H PRN PRN PRN Reason: Pain Score 1-10/Temp > 100.7 F Last Admin: 01/20/20 01:23 Dose: 650 mg Documented by: Albuterol/Ipratropium (Ipratropium/Albuterol Sulfate 3 Ml Ampul.Neb) 3 ml INHALATION Q4HWA.RT [facility] Last Admin: 01/22/20 07:39 Dose: 3 ml Documented by: Dexamethasone (Dexamethasone 4 Mg Tablet) 6 mg PO DAILY [facility] Stop: 01/27/20 10:01 Last Admin: 01/22/20 08:37 Dose: 6 mg Documented by: Duloxetine HCl (Duloxetine Hcl 60 Mg Capsule) 60 mg PO QHS [facility] Last Admin: 01/21/20 21:58 Dose: 60 mg Documented by: Enoxaparin Sodium (Enoxaparin 40 Mg/0.4 Ml Syringe) 40 mg SC Q12 [facility] Last Admin: 01/22/20 08:36 Dose: 40 mg Documented by: Guaifenesin (Guaifenesin 10 Ml Udc (200mg/10ml)) 10 ml PO Q4H PRN PRN PRN Reason: COUGH Last Admin: 01/20/20 01:23 Dose: 10 ml Documented by: Sodium Chloride () 500 mls @ 15 mls/hr IV PRN PRN PRN Reason: Blood Transfusion Sodium Chloride () 250 mls @ 15 mls/hr IV .[id number] PRN PRN Reason: Saline Flush Remdesivir 100 mg/ Sodium (Chloride) 250 mls @ 125 mls/hr IV DAILY [facility]; Protocol Stop: 01/23/20 11:59 Last Admin: 01/22/20 11:07 Dose: 125 mls/hr Documented by: Melatonin (Melatonin 3 Mg Tablet) 3 mg PO QHS PRN PRN PRN Reason: INSOMNIA Last Admin: 01/21/20 21:56 Dose: 3 mg Documented by: Ondansetron HCl (Ondansetron 4 Mg/2 Ml Vial) 4 mg IV Q8H PRN PRN PRN Reason: NAUSEA/VOMITING Last Admin: 01/20/20 06:30 Dose: 4 mg Documented by: Sodium Chloride (0.9% Saline Lock 10 Ml Syringe) 10 - 40 ml IV UD PRN PRN Reason: SALINE FLUSH Last Admin: 01/20/20 06:30 Dose: 10 ml Documented by: Assessment/Plan All Active Problems (Last Reviewed 01/16/20 @ 13:21 by Emmanuel GALLOWAY, PA) COVID-19 (Acute) Contact with or suspected exposure to other viral communicable disease (Acute) RECOMMENDATIONS: 1. Wean supplemental oxygen to maintain saturations at or above 90%. 2. Continue Decadron and remdesivir. Continue to monitor liver and renal function closely. 3. Encourage incentive spirometer use and mobilize patient as tolerated. 4. Start IV Lasix today. IMPRESSIONS: 1. Acute hypoxemic respiratory failure secondary to COVID-19 pneumonia Plan to continue current supportive measures with supplemental oxygen to maintain saturations at or above 90%. The patient has already received convalescent plasma and remains on remdesivir and Decadron. We will continue to monitor liver and renal function accordingly. Up until yesterday, the patient was being maintained on supplemental IV fluids. In light of her worsening oxygenation status, will start her today on IV Lasix. The patient was encouraged to continue to utilize her incentive spirometer. 2. Depression/anxiety/GERD/hypothyroidism/obesity Complicates care, management, recovery and prognosis. Continue home medications as indicated. CODE status: Discussed CODE status at length including difference between FULL code, DNR-CCA and DNR-CC status. Following discussions about the differences in these status, patient requested FULL CODE STATUS. Advanced Care Planning Face to Face Time: 12 minutes This note was generated with [employer] dictation software. It may contain incorrect words, spelling, and punctuation that were not noted in checking the note before signing. Inpatient E&M: 23751 Init Hosp L3 Procedures: 40952 Advncd Care Plan 30 Min
--- NOTE | 2020-01-22 12:56 | PN_ITS ---
Patient Problems: Active and Suspected Problems (Last Reviewed 01/16/20 @ 13:21 by Emmanuel GALLOWAY, PA) COVID-19 (Acute) Subjective: Patient seen and examined. She said she still felt short of breath. She was on 15L of oxygen at time of review; she had been on 3 yesterday when I reviewed her. However her oxygen requirements gradually increased throughout the day yesterday and she was up to 15 L today. She has otherwise remained hemodynamically stable. Vitals/I&O's: Vital Signs Temp Pulse Resp BP Pulse Ox 97.4 F L 80 20 H 155/80 H 96 01/22/20 11:27 01/22/20 11:27 01/22/20 11:27 01/22/20 08:34 01/22/20 11:27 Oxygen Flow Rate (L/min) 10 Oxygen Delivery Method Nasal Cannula Weight: 195 lb Body Mass Index (BMI) 30.5 Intake and Output for Last 24 Hours 01/20/20 01/21/20 01/22/20 23:59 23:59 23:59 Intake Total 2603.34 / 2803.34 2312.50 / 2312.50 120 / 120 Output Total 350 / 350 Balance 2603.34 / 2803.34 2312.50 / 2312.50 -230 / -230 General: Alert, Cooperative, No apparent distress, anxious HEENT: Atraumatic, PERRLA, EOMI, Normocephalic Oral: Dry Mucosa Neck: Supple, No JVD, Negative Carotid Bruits Lungs: - - diminished breath sounds bibasally, no wheezes or crackles. On 15L of oxygen by nasal canula Cardiovascular: Regular rate, Regular Rhythm, Normal S1, Normal S2, No murmurs Abdomen: Bowel Sounds Present, Soft, Non Tender, Non-Distended, No Hepato- splenomegaly Extremities: No clubbing, No cyanosis, No edema, Capillary Refill Less than 3 Seconds Skin: No rashes, No breakdown Musculoskeletal: No Tenderness to Palpation of Joints or Extremities Lymphatic: No Cervical, Supraclavicular, or Inguinal Adenopathy Neurological: Cranial nerves II-XII grossly intact, Neuro grossly intact, Motor Exam 5/5 strength throughout Psych/Mental Status: Normal Affect, Appropriate, Alert and oriented to time, place, person, mood and affect Microbiology Past 72 Hours 01/18/20 14:05 Blood Culture (Wb) - Left Hand Blood Culture - Preliminary No growth in 48 hours. 01/18/20 14:05 Blood Culture (Wb) #2 - Right Forearm Blood Culture - Preliminary No growth in 48 hours. Laboratory Results 01/22/20 07:58: WBC 9.1, RBC 4.28, Hgb 12.4, Hct 37.4, MCV 87.4, MCH 29.0, MCHC 33.2, RDW Std Deviation 39.2, RDW Coeff of Shirlene 12.2, Plt Count 223, MPV 11.6 01/22/20 07:58: Sodium 140, Potassium 3.6, Chloride 107, Carbon Dioxide 29.0, Anion Gap 4 L, BUN 12, Creatinine 0.58, Estim Creat Clear Calc 50.18, Est GFR (MDRD) Af Amer 130, Est GFR (MDRD) Non-Af 108, BUN/Creatinine Ratio 20.5 H, Glucose 107 H, Calcium 8.6, Total Bilirubin 0.40, AST 17, ALT 23, Alkaline Phosphatase 75, Total Protein 6.0 L, Albumin 2.6 L, Globulin 3.4, Albumin/Globulin Ratio 0.8 L Diagnostic Data Chest X-Ray 01/18/20 13:53 IMPRESSION: No airspace consolidation or pleural effusion. Electronically Signed: Eduin Tinsley MD (Brooks) at 14:49 EST , Service support , Chest CTA 01/18/20 14:37 Current Medications Acetaminophen (Acetaminophen 325 Mg Tablet) 650 mg PO Q6H PRN PRN PRN Reason: Pain Score 1-10/Temp > 100.7 F Last Admin: 01/20/20 01:23 Dose: 650 mg Documented by: Albuterol/Ipratropium (Ipratropium/Albuterol Sulfate 3 Ml Ampul.Neb) 3 ml INHALATION Q4HWA.RT [facility] Last Admin: 01/22/20 07:39 Dose: 3 ml Documented by: Dexamethasone (Dexamethasone 4 Mg Tablet) 6 mg PO DAILY [facility] Stop: 01/27/20 10:01 Last Admin: 01/22/20 08:37 Dose: 6 mg Documented by: Duloxetine HCl (Duloxetine Hcl 60 Mg Capsule) 60 mg PO QHS [facility] Last Admin: 01/21/20 21:58 Dose: 60 mg Documented by: Enoxaparin Sodium (Enoxaparin 40 Mg/0.4 Ml Syringe) 40 mg SC Q12 [facility] Last Admin: 01/22/20 08:36 Dose: 40 mg Documented by: Guaifenesin (Guaifenesin 10 Ml Udc (200mg/10ml)) 10 ml PO Q4H PRN PRN PRN Reason: COUGH Last Admin: 01/20/20 01:23 Dose: 10 ml Documented by: Sodium Chloride () 500 mls @ 15 mls/hr IV PRN PRN PRN Reason: Blood Transfusion Sodium Chloride () 250 mls @ 15 mls/hr IV .[id number] PRN PRN Reason: Saline Flush Remdesivir 100 mg/ Sodium (Chloride) 250 mls @ 125 mls/hr IV DAILY [facility]; Protocol Stop: 01/23/20 11:59 Last Admin: 01/22/20 11:07 Dose: 125 mls/hr Documented by: Melatonin (Melatonin 3 Mg Tablet) 3 mg PO QHS PRN PRN PRN Reason: INSOMNIA Last Admin: 01/21/20 21:56 Dose: 3 mg Documented by: Ondansetron HCl (Ondansetron 4 Mg/2 Ml Vial) 4 mg IV Q8H PRN PRN PRN Reason: NAUSEA/VOMITING Last Admin: 01/20/20 06:30 Dose: 4 mg Documented by: Sodium Chloride (0.9% Saline Lock 10 Ml Syringe) 10 - 40 ml IV UD PRN PRN Reason: SALINE FLUSH Last Admin: 01/20/20 06:30 Dose: 10 ml Documented by: STROKE Vital Signs/Narrative: Vital Signs Temp Pulse Resp Pulse Ox 01/22/20 11:27 97.4 F L 80 20 H 96 01/22/20 09:58 90 01/22/20 09:05 98.6 F 23 H 77 Medical Necessity - Tobacco Use Smoking Status: Former smoker Assessment/Plan All Active Problems (Last Reviewed 01/16/20 @ 13:21 by Emmanuel GALLOWAY, PA) COVID-19 (Acute) Contact with or suspected exposure to other viral communicable disease (Acute) #acute hypoxic respiratory failure due to COVID 19 infection * she is now on 15L: this morning. oxygen requirements steadily increased the whole of yesterday till today * on PO decdrone and remdesivir. She has also received convalescent plasma. * breathing treatments with bronchodilators. * pulmonology consulted- Dr Pang informed. await rec's * #COVID 19: as above. #Hypothyroidism: on synthroid # GERD: on PPI #Anxiety and depression: on cymbalta DVT prophylaxis: lovenox Inpatient E&M: 88308 Subs Hosp L3
[2020-01-22] MEDS: Furosemide 40 MG/4 ML Vial IV (13:56)
[2020-01-22 14:24] LABS: D-Dimer Quantitative (DVT/PE) 0.38 FEU/ug/m (0.27-0.49)
[2020-01-22 14:38] LABS: BNP,B-Type NATRIURETIC PEPTIDE 98.7 pg/mL (0-100)
--- NOTE | 2020-01-22 15:04 | PN.ID_ITS ---
Patient Problems: Active and Suspected Problems (Last Reviewed 01/16/20 @ 13:21 by Emmanuel GALLOWAY, PA) COVID-19 (Acute) Subjective: Feeling ok, still dyspnea, no fever - Physical Exam Vitals/I&O's: Vital Signs Temp Pulse Resp BP Pulse Ox 98.7 F 62 20 H 157/81 H 93 01/22/20 13:42 01/22/20 14:26 01/22/20 14:26 01/22/20 13:42 01/22/20 13:42 Oxygen Flow Rate (L/min) 10 Oxygen Delivery Method Nasal Cannula Weight: 88.451 kg Body Mass Index (BMI) 30.5 Intake and Output for Last 24 Hours 01/20/20 01/21/20 01/22/20 23:59 23:59 23:59 Intake Total 2603.34 / 2803.34 2312.50 / 2312.50 370 / 370 Output Total 350 / 350 Balance 2603.34 / 2803.34 2312.50 / 2312.50 General: Alert, Cooperative, No apparent distress Lungs: Diminished Cardiovascular: Regular rate, Regular Rhythm Abdomen: Soft, Non Tender, Non-Distended Skin: No rashes Microbiology Past 72 Hours 01/18/20 14:05 Blood Culture (Wb) - Left Hand Blood Culture - Preliminary No growth in 48 hours. 01/18/20 14:05 Blood Culture (Wb) #2 - Right Forearm Blood Culture - Preliminary No growth in 48 hours. Laboratory Results 01/22/20 07:58: WBC 9.1, RBC 4.28, Hgb 12.4, Hct 37.4, MCV 87.4, MCH 29.0, MCHC 33.2, RDW Std Deviation 39.2, RDW Coeff of Shirlene 12.2, Plt Count 223, MPV 11.6 01/22/20 07:58: Sodium 140, Potassium 3.6, Chloride 107, Carbon Dioxide 29.0, Anion Gap 4 L, BUN 12, Creatinine 0.58, Estim Creat Clear Calc 50.18, Est GFR (MDRD) Af Amer 130, Est GFR (MDRD) Non-Af 108, BUN/Creatinine Ratio 20.5 H, Glucose 107 H, Calcium 8.6, Total Bilirubin 0.40, AST 17, ALT 23, Alkaline Phosphatase 75, Total Protein 6.0 L, Albumin 2.6 L, Globulin 3.4, Albumin/Globu janee Ratio 0.8 L 01/22/20 13:57: Troponin I < 0.015 01/22/20 13:57: B-Natriuretic Peptide 98.7 01/22/20 13:57: D-Dimer Quant (PE/DVT) 0.38 Current Medications Acetaminophen (Acetaminophen 325 Mg Tablet) 650 mg PO Q6H PRN PRN PRN Reason: Pain Score 1-10/Temp > 100.7 F Last Admin: 01/20/20 01:23 Dose: 650 mg Documented by: Albuterol/Ipratropium (Ipratropium/Albuterol Sulfate 3 Ml Ampul.Neb) 3 ml INHALATION Q4HWA.RT [facility] Last Admin: 01/22/20 14:26 Dose: 3 ml Documented by: Dexamethasone (Dexamethasone 4 Mg Tablet) 6 mg PO DAILY [facility] Stop: 01/27/20 10:01 Last Admin: 01/22/20 08:37 Dose: 6 mg Documented by: Duloxetine HCl (Duloxetine Hcl 60 Mg Capsule) 60 mg PO QHS [facility] Last Admin: 01/21/20 21:58 Dose: 60 mg Documented by: Enoxaparin Sodium (Enoxaparin 40 Mg/0.4 Ml Syringe) 40 mg SC Q12 [facility] Last Admin: 01/22/20 08:36 Dose: 40 mg Documented by: Guaifenesin (Guaifenesin 10 Ml Udc (200mg/10ml)) 10 ml PO Q4H PRN PRN PRN Reason: COUGH Last Admin: 01/20/20 01:23 Dose: 10 ml Documented by: Sodium Chloride () 500 mls @ 15 mls/hr IV PRN PRN PRN Reason: Blood Transfusion Sodium Chloride () 250 mls @ 15 mls/hr IV .[id number] PRN PRN Reason: Saline Flush Remdesivir 100 mg/ Sodium (Chloride) 250 mls @ 125 mls/hr IV DAILY [facility]; Protocol Stop: 01/23/20 11:59 Last Infusion: 01/22/20 13:14 Dose: Infused Documented by: Melatonin (Melatonin 3 Mg Tablet) 3 mg PO QHS PRN PRN PRN Reason: INSOMNIA Last Admin: 01/21/20 21:56 Dose: 3 mg Documented by: Ondansetron HCl (Ondansetron 4 Mg/2 Ml Vial) 4 mg IV Q8H PRN PRN PRN Reason: NAUSEA/VOMITING Last Admin: 01/20/20 06:30 Dose: 4 mg Documented by: Sodium Chloride (0.9% Saline Lock 10 Ml Syringe) 10 - 40 ml IV UD PRN PRN Reason: SALINE FLUSH Last Admin: 01/20/20 06:30 Dose: 10 ml Documented by: Medical Necessity - Tobacco Use Smoking Status: Former smoker Route of nutrition/ use of supplements: [] Nutritional Intake: [] IV Site: [] Bhatt Catheter: [] - Assessment/Plan Antibiotics: [] Assessment/Plan: [] covid with hypoxia - sx started 01/10. CT neg for PE. D-dimer 0.7. On dex, remdesivir, got plasma 01/19. Lovenox 40mg bid. Worsened O2, persistent dyspnea, concern for pulm edema. Checking trop and BNP, consulted pulm. Will follow, d/w Dr. Pang
[2020-01-22] MEDS: DULoxetine Hcl 60 MG Capsule PO (19:44)
[2020-01-22] MEDS: Acetaminophen 325 MG Tablet 650 MG PO (19:50)
[2020-01-22] MEDS: guaiFENesin 10 ML UDC (200MG/10ML) PO (19:51)
[2020-01-23] VITALS (11 sets, daily range): BP systolic 118–144; BP diastolic 52–60; PULSE 59–80; RESP 16–28; TEMP 36.5–37.1; O2SAT 90–97
--- NOTE | 2020-01-23 07:17 | PN_ITS ---
Patient Problems: Active and Suspected Problems (Last Reviewed 01/16/20 @ 13:21 by Emmanuel GALLOWAY, PA) COVID-19 (Acute) Subjective: The patient was seen and examined at the bedside this morning. Events from the last 24 hours have been reviewed. The patient is currently afebrile, hemodynamically stable and maintaining appropriate oxygen saturations on 10 L/min via nasal cannula. The patient did receive a one-time dose of IV Lasix yesterday. The patient did receive convalescent plasma previously and remains on remdesivir and Decadron. Liver and renal function are stable. Objective: The patient's most recent lab work, culture data and imaging studies have all been personally reviewed. Coronavirus antigen was positive on January 17. Blood cultures have shown no growth to date. - Physical Exam Vitals/I&O's: Vital Signs Temp Pulse Resp BP Pulse Ox 98.7 F 59 L 18 132/59 H 93 01/23/20 03:27 01/23/20 06:51 01/23/20 03:27 01/23/20 03:27 01/23/20 06:51 Oxygen Flow Rate (L/min) 10 Oxygen Delivery Method Nasal Cannula Weight: 205 lb 7.533 oz Body Mass Index (BMI) 30.5 Intake and Output for Last 24 Hours 01/21/20 01/22/20 01/23/20 23:59 23:59 23:59 Intake Total 2312.50 / 2312.50 490 / 490 240 / 240 Output Total 750 / 750 Balance 2312.50 / 2312.50 -260 / -260 240 / 240 General: Alert, Cooperative, No apparent distress HEENT: Atraumatic, PERRLA, Normocephalic Oral: Moist Mucosa, No Gingival or Mucosal Lesions/ Ulcerations Neck: Supple, No Nodes, Trachea Midline Lungs: Diminished Cardiovascular: Regular rate, Regular Rhythm Abdomen: Bowel Sounds Present, Soft, Non Tender, Obese Extremities: No clubbing, No cyanosis, No edema Skin: No breakdown Musculoskeletal: No Tenderness to Palpation of Joints or Extremities, No Muscle Wasting Lymphatic: No Cervical, Supraclavicular, or Inguinal Adenopathy Neurological: Cranial nerves II-XII grossly intact, Neuro grossly intact Psych/Mental Status: Normal Affect, Appropriate Labs (Last 48 Hours) 01/22/20 01/22/20 01/22/20 07:58 07:58 13:57 WBC 9.1 RBC 4.28 Hgb 12.4 Hct 37.4 MCV 87.4 MCH 29.0 MCHC 33.2 RDW Std Deviation 39.2 RDW Coeff of Shirlene 12.2 Plt Count 223 MPV 11.6 D-Dimer Quant (PE/DVT) Sodium 140 Potassium 3.6 Chloride 107 Carbon Dioxide 29.0 Anion Gap 4 L BUN 12 Creatinine 0.58 Estim Creat Clear Calc 50.18 Est GFR (MDRD) Af Amer 130 Est GFR (MDRD) Non-Af 108 BUN/Creatinine Ratio 20.5 H Glucose 107 H Calcium 8.6 Total Bilirubin 0.40 AST 17 ALT 23 Alkaline Phosphatase 75 Troponin I < 0.015 B-Natriuretic Peptide Total Protein 6.0 L Albumin 2.6 L Globulin 3.4 Albumin/Globulin Ratio 0.8 L 01/22/20 01/22/20 13:57 13:57 WBC RBC Hgb Hct MCV MCH MCHC RDW Std Deviation RDW Coeff of Shirlene Plt Count MPV D-Dimer Quant (PE/DVT) 0.38 Sodium Potassium Chloride Carbon Dioxide Anion Gap BUN Creatinine Estim Creat Clear Calc Est GFR (MDRD) Af Amer Est GFR (MDRD) Non-Af BUN/Creatinine Ratio Glucose Calcium Total Bilirubin AST ALT Alkaline Phosphatase Troponin I B-Natriuretic Peptide 98.7 Total Protein Albumin Globulin Albumin/Globulin Ratio Clinical Impression(s) from Imaging Studies Chest X-Ray 01/18/20 13:53 IMPRESSION: No airspace consolidation or pleural effusion. Electronically Signed: Eduin Tinsley MD (Bro[facility]) at 14:49 EST , Service support , Chest CTA 01/18/20 14:37 Current Medications Acetaminophen (Acetaminophen 325 Mg Tablet) 650 mg PO Q6H PRN PRN PRN Reason: Pain Score 1-10/Temp > 100.7 F Last Admin: 01/22/20 19:50 Dose: 650 mg Documented by: Albuterol/Ipratropium (Ipratropium/Albuterol Sulfate 3 Ml Ampul.Neb) 3 ml INHALATION Q4HWA.RT [facility] Last Admin: 01/22/20 19:55 Dose: 3 ml Documented by: Dexamethasone (Dexamethasone 4 Mg Tablet) 6 mg PO DAILY [facility] Stop: 01/27/20 10:01 Last Admin: 01/22/20 08:37 Dose: 6 mg Documented by: Duloxetine HCl (Duloxetine Hcl 60 Mg Capsule) 60 mg PO QHS [facility] Last Admin: 01/22/20 19:44 Dose: 60 mg Documented by: Enoxaparin Sodium (Enoxaparin 40 Mg/0.4 Ml Syringe) 40 mg SC Q12 [facility] Last Admin: 01/22/20 19:44 Dose: 40 mg Documented by: Guaifenesin (Guaifenesin 10 Ml Udc (200mg/10ml)) 10 ml PO Q4H PRN PRN PRN Reason: COUGH Last Admin: 01/22/20 19:51 Dose: 10 ml Documented by: Sodium Chloride () 500 mls @ 15 mls/hr IV PRN PRN PRN Reason: Blood Transfusion Sodium Chloride () 250 mls @ 15 mls/hr IV .[id number] PRN PRN Reason: Saline Flush Remdesivir 100 mg/ Sodium (Chloride) 250 mls @ 125 mls/hr IV DAILY [facility]; Protocol Stop: 01/23/20 11:59 Last Infusion: 01/22/20 13:14 Dose: Infused Documented by: Melatonin (Melatonin 3 Mg Tablet) 3 mg PO QHS PRN PRN PRN Reason: INSOMNIA Last Admin: 01/21/20 21:56 Dose: 3 mg Documented by: Ondansetron HCl (Ondansetron 4 Mg/2 Ml Vial) 4 mg IV Q8H PRN PRN PRN Reason: NAUSEA/VOMITING Last Admin: 01/20/20 06:30 Dose: 4 mg Documented by: Sodium Chloride (0.9% Saline Lock 10 Ml Syringe) 10 - 40 ml IV UD PRN PRN Reason: SALINE FLUSH Last Admin: 01/20/20 06:30 Dose: 10 ml Documented by: Medical Necessity - Tobacco Use Smoking Status: Former smoker Assessment/Plan All Active Problems (Last Reviewed 01/16/20 @ 13:21 by Emmanuel GALLOWAY, PA) COVID-19 (Acute) Contact with or suspected exposure to other viral communicable disease (Acute) RECOMMENDATIONS: 1. Wean supplemental oxygen to maintain saturations at or above 90%. 2. Continue Decadron and remdesivir. Continue to monitor liver and renal function closely. 3. Encourage incentive spirometer use and mobilize patient as tolerated. 4. Start scheduled IV Lasix twice daily. IMPRESSIONS: 1. Acute hypoxemic respiratory failure secondary to COVID-19 pneumonia Plan to continue current supportive measures with supplemental oxygen to maintain saturations at or above 90%. The patient has already received convalescent plasma and remains on remdesivir and Decadron. We will continue to monitor liver and renal function accordingly. In addition, the patient will be continued on IV diuretic therapy as tolerated by hemodynamics and renal function. Encourage incentive spirometer use and mobilize patient as tolerated. 2. Depression/anxiety/GERD/hypothyroidism/obesity Complicates care, management, recovery and prognosis. Continue home medications as indicated. This note was generated with [employer] dictation software. It may contain incorrect words, spelling, and punctuation that were not noted in checking the note before signing. Inpatient E&M: 66811 Subs Hosp L2
[2020-01-23] MEDS: Ipratropium/Albuterol Sulfate 3 ML AMPUL.NEB INHALATION ×5 (07:40→22:11)
--- NOTE | 2020-01-23 07:45 | PN_ITS ---
Patient Problems: Active and Suspected Problems (Last Reviewed 01/16/20 @ 13:21 by Emmanuel GALLOWAY, PA) COVID-19 (Acute) Subjective: Patient seen and examined. She remains on 10 L of oxygen. So remains short of breath though she thinks is getting better. Shortness of breath is especially worse with exertion. Review of systems otherwise negative. Vitals/I&O's: Vital Signs Temp Pulse Resp BP Pulse Ox 98.7 F 59 L 18 132/59 H 93 01/23/20 03:27 01/23/20 06:51 01/23/20 03:27 01/23/20 03:27 01/23/20 06:51 Oxygen Flow Rate (L/min) 10 Oxygen Delivery Method Nasal Cannula Weight: 205 lb 7.533 oz Body Mass Index (BMI) 30.5 Intake and Output for Last 24 Hours 01/21/20 01/22/20 01/23/20 23:59 23:59 23:59 Intake Total 2312.50 / 2312.50 490 / 490 240 / 240 Output Total 750 / 750 Balance 2312.50 / 2312.50 -260 / -260 240 / 240 General: Alert, Cooperative, No apparent distress, anxious HEENT: Atraumatic, PERRLA, EOMI, Normocephalic Oral: Dry Mucosa Neck: Supple, No JVD, Negative Carotid Bruits Lungs: - - diminished breath sounds bibasally, no wheezes or crackles. On 10L of oxygen by nasal canula Cardiovascular: Regular rate, Regular Rhythm, Normal S1, Normal S2, No murmurs Abdomen: Bowel Sounds Present, Soft, Non Tender, Non-Distended, No Hepato- splenomegaly Extremities: No clubbing, No cyanosis, No edema, Capillary Refill Less than 3 Seconds Skin: No rashes, No breakdown Musculoskeletal: No Tenderness to Palpation of Joints or Extremities Lymphatic: No Cervical, Supraclavicular, or Inguinal Adenopathy Neurological: Cranial nerves II-XII grossly intact, Neuro grossly intact, Motor Exam 5/5 strength throughout Psych/Mental Status: Normal Affect, Appropriate, Alert and oriented to time, place, person, mood and affect Microbiology Past 72 Hours 01/18/20 14:05 Blood Culture (Wb) - Left Hand Blood Culture - Preliminary No growth in 48 hours. 01/18/20 14:05 Blood Culture (Wb) #2 - Right Forearm Blood Culture - Preliminary No growth in 48 hours. Laboratory Results 01/22/20 07:58: WBC 9.1, RBC 4.28, Hgb 12.4, Hct 37.4, MCV 87.4, MCH 29.0, MCHC 33.2, RDW Std Deviation 39.2, RDW Coeff of Shirlene 12.2, Plt Count 223, MPV 11.6 01/22/20 07:58: Sodium 140, Potassium 3.6, Chloride 107, Carbon Dioxide 29.0, Anion Gap 4 L, BUN 12, Creatinine 0.58, Estim Creat Clear Calc 50.18, Est GFR (MDRD) Af Amer 130, Est GFR (MDRD) Non-Af 108, BUN/Creatinine Ratio 20.5 H, Glucose 107 H, Calcium 8.6, Total Bilirubin 0.40, AST 17, ALT 23, Alkaline Phosphatase 75, Total Protein 6.0 L, Albumin 2.6 L, Globulin 3.4, Albumin/Globulin Ratio 0.8 L 01/22/20 13:57: Troponin I < 0.015 01/22/20 13:57: B-Natriuretic Peptide 98.7 01/22/20 13:57: D-Dimer Quant (PE/DVT) 0.38 Current Medications Acetaminophen (Acetaminophen 325 Mg Tablet) 650 mg PO Q6H PRN PRN PRN Reason: Pain Score 1-10/Temp > 100.7 F Last Admin: 01/22/20 19:50 Dose: 650 mg Documented by: Albuterol/Ipratropium (Ipratropium/Albuterol Sulfate 3 Ml Ampul.Neb) 3 ml INHALATION Q4HWA.RT [facility] Last Admin: 01/23/20 07:40 Dose: 3 ml Documented by: Dexamethasone (Dexamethasone 4 Mg Tablet) 6 mg PO DAILY [facility] Stop: 01/27/20 10:01 Last Admin: 01/22/20 08:37 Dose: 6 mg Documented by: Duloxetine HCl (Duloxetine Hcl 60 Mg Capsule) 60 mg PO QHS [facility] Last Admin: 01/22/20 19:44 Dose: 60 mg Documented by: Enoxaparin Sodium (Enoxaparin 40 Mg/0.4 Ml Syringe) 40 mg SC Q12 [facility] Last Admin: 01/22/20 19:44 Dose: 40 mg Documented by: Guaifenesin (Guaifenesin 10 Ml Udc (200mg/10ml)) 10 ml PO Q4H PRN PRN PRN Reason: COUGH Last Admin: 01/22/20 19:51 Dose: 10 ml Documented by: Sodium Chloride () 500 mls @ 15 mls/hr IV PRN PRN PRN Reason: Blood Transfusion Sodium Chloride () 250 mls @ 15 mls/hr IV .[id number] PRN PRN Reason: Saline Flush Remdesivir 100 mg/ Sodium (Chloride) 250 mls @ 125 mls/hr IV DAILY [facility]; Protocol Stop: 01/23/20 11:59 Last Infusion: 01/22/20 13:14 Dose: Infused Documented by: Melatonin (Melatonin 3 Mg Tablet) 3 mg PO QHS PRN PRN PRN Reason: INSOMNIA Last Admin: 01/21/20 21:56 Dose: 3 mg Documented by: Ondansetron HCl (Ondansetron 4 Mg/2 Ml Vial) 4 mg IV Q8H PRN PRN PRN Reason: NAUSEA/VOMITING Last Admin: 01/20/20 06:30 Dose: 4 mg Documented by: Sodium Chloride (0.9% Saline Lock 10 Ml Syringe) 10 - 40 ml IV UD PRN PRN Reason: SALINE FLUSH Last Admin: 01/20/20 06:30 Dose: 10 ml Documented by: STROKE Vital Signs/Narrative: Vital Signs Pulse Pulse Ox 01/23/20 06:51 59 L 93 Medical Necessity - Tobacco Use Smoking Status: Former smoker Assessment/Plan All Active Problems (Last Reviewed 01/16/20 @ 13:21 by Emmanuel GALLOWAY, PA) COVID-19 (Acute) Contact with or suspected exposure to other viral communicable disease (Acute) #acute hypoxic respiratory failure due to COVID 19 infection * she is now on 10L. she received a dose of IV lasix yesterday * on PO decdrone and remdesivir. She has also received convalescent plasma. * breathing treatments with bronchodilators. * pulmonology consulted- Dr Pang informed. await rec's * incentive spirometer use #COVID 19: as above. #Hypothyroidism: on synthroid # GERD: on PPI #Anxiety and depression: on cymbalta DVT prophylaxis: lovenox Inpatient E&M: 45801 Subs Hosp L2
[2020-01-23 08:29] LABS: Hematocrit 40.6 % (37-47); Hemoglobin 13.6 g/dL (12.0-15.0); Mean Corp Hgb Conc 33.5 g/dL (32-36); Mean Corpuscular Hgb 29.2 pg (27.0-32.0); Mean Corpuscular Volume 87.1 fL (81-99); Mean Platelet Vol. 12.8 fl (6.2-12.0); Platelet Count 235 K/mm3 (150-450); RBC Distribution Width CV 12.1 % (11.6-14.6); RBC Distribution Width SD 38.7 fl (35.1-43.9); Red Blood Count 4.66 M/mm3 (4.2-5.4); White Blood Count 8.8 K/mm3 (4.4-11.0)
[2020-01-23] MEDS: dexAMETHasone 4 MG Tablet 6 MG PO (08:37)
[2020-01-23] MEDS: Enoxaparin 40 MG/0.4 ML Syringe SC ×2 (08:37→20:37)
[2020-01-23 08:49] LABS: ALB/GLOB Ratio 0.8 RATIO (0.9-2.4); AST(SGOT) 15 U/L (15-37); Alanine Aminotransfer ALT/SGPT 21 U/L (13-56); Albumin, Serum 2.8 g/dL (3.2-5.0); Alkaline Phosphatase 82 U/L (45-117); Anion Gap 6 (5-15); BUN 17 mg/dL (7-18); BUN/Creat Ratio 25.9 RATIO (10-20); Calcium,Total 8.9 mg/dL (8.5-10.1); Chloride 102 mmol/L (98-107); Creatinine, Serum 0.66 mg/dL (0.55-1.02); EST Glomerular Filtration Rate 94 mL/min (>60); Est Glom Filt Rate - Afr Amer 114 mL/min (>60); Estimated Creatinine Clearance 50.18 ml/min; Globulin 3.6 g/dL (2.2-4.2); Glucose 90 mg/dL (74-106); Potassium 3.6 mmol/L (3.5-5.1); Protein, Total 6.4 g/dL (6.4-8.2); Sodium Level 139 mmol/L (136-145)
[2020-01-23] MEDS: Furosemide 40 MG/4 ML Vial IV ×2 (10:54→16:39)
[2020-01-23] MEDS: 0.9% Saline Lock 10 ML Syringe IV ×3 (10:55→16:39)
--- NOTE | 2020-01-23 14:27 | NURSING ---
Care assumed at this time from Tess Renner RN.
[2020-01-23] MEDS: DULoxetine Hcl 60 MG Capsule PO (20:38)
[2020-01-24] VITALS (11 sets, daily range): BP systolic 100–130; BP diastolic 52–80; PULSE 65–82; RESP 18–23; TEMP 36.6–36.9; O2SAT 90–97
[2020-01-24 07:10] LABS: Hematocrit 42.2 % (37-47); Hemoglobin 14.3 g/dL (12.0-15.0); Mean Corp Hgb Conc 33.9 g/dL (32-36); Mean Corpuscular Volume 85.6 fL (81-99); Platelet Count 342 K/mm3 (150-450); RBC Distribution Width CV 12.2 % (11.6-14.6); RBC Distribution Width SD 37.7 fl (35.1-43.9); Red Blood Count 4.93 M/mm3 (4.2-5.4); White Blood Count 10.8 K/mm3 (4.4-11.0)
[2020-01-24] MEDS: Ipratropium/Albuterol Sulfate 3 ML AMPUL.NEB INHALATION ×4 (07:28→19:12)
[2020-01-24 07:46] LABS: ALB/GLOB Ratio 0.7 RATIO (0.9-2.4); AST(SGOT) 17 U/L (15-37); Alanine Aminotransfer ALT/SGPT 20 U/L (13-56); Albumin, Serum 2.8 g/dL (3.2-5.0); Alkaline Phosphatase 81 U/L (45-117); Anion Gap 8 (5-15); BUN 25 mg/dL (7-18); BUN/Creat Ratio 33.7 RATIO (10-20); Calcium,Total 9.3 mg/dL (8.5-10.1); Chloride 96 mmol/L (98-107); Creatinine, Serum 0.74 mg/dL (0.55-1.02); EST Glomerular Filtration Rate 82 mL/min (>60); Est Glom Filt Rate - Afr Amer 99 mL/min (>60); Estimated Creatinine Clearance 50.18 ml/min; Globulin 3.9 g/dL (2.2-4.2); Glucose 97 mg/dL (74-106); Potassium 3.1 mmol/L (3.5-5.1); Protein, Total 6.7 g/dL (6.4-8.2); Sodium Level 137 mmol/L (136-145)
--- NOTE | 2020-01-24 09:25 | PN_ITS ---
Patient Problems: Active and Suspected Problems (Last Reviewed 01/16/20 @ 13:21 by Emmanuel GALLOWAY, PA) COVID-19 (Acute) Subjective: The patient was seen and examined at the bedside this morning. Events from the last 24 hours have been reviewed. The patient is currently afebrile, hemodynamically stable and maintaining appropriate oxygen saturations on 15 L/min via nasal cannula. The patient did receive convalescent plasma and has completed her treatment course of remdesivir. She remains on scheduled Decadron and IV diuretic therapy. Creatinine is stable. Objective: The patient's most recent lab work, culture data and imaging studies have all been personally reviewed. Coronavirus antigen was positive on January 17. Blood cultures have shown no growth to date. - Physical Exam Vitals/I&O's: Vital Signs Temp Pulse Resp BP Pulse Ox 98.5 F 75 20 H 100/67 93 01/24/20 09:05 01/24/20 09:05 01/24/20 09:05 01/24/20 09:05 01/24/20 09:05 Oxygen Flow Rate (L/min) 15 Oxygen Delivery Method Nasal Cannula Weight: 195 lb 5.273 oz Body Mass Index (BMI) 30.5 Intake and Output for Last 24 Hours 01/22/20 01/23/20 01/24/20 23:59 23:59 23:59 Intake Total 490 / 490 970 / 970 Output Total 750 / 750 1600 / 1600 250 / 250 Balance -260 / -260 -630 / -630 -250 / -250 General: Alert, Cooperative, No apparent distress HEENT: Atraumatic, PERRLA, Normocephalic Oral: No Gingival or Mucosal Lesions/ Ulcerations Neck: Supple, No Nodes, Trachea Midline Lungs: No rhonchi, No wheeze, No rales, Diminished Cardiovascular: Regular rate, Regular Rhythm, Normal S1, Normal S2, No murmurs Abdomen: Bowel Sounds Present, Soft, Non Tender, Obese Extremities: No clubbing, No cyanosis, No edema Skin: No breakdown Musculoskeletal: No Tenderness to Palpation of Joints or Extremities, No Muscle Wasting Lymphatic: No Cervical, Supraclavicular, or Inguinal Adenopathy Neurological: Cranial nerves II-XII grossly intact, Neuro grossly intact Psych/Mental Status: Normal Affect, Appropriate Labs (Last 48 Hours) 12/05/0801/22/20 01/22/20 13:57 13:57 13:57 WBC RBC Hgb Hct MCV MCH MCHC RDW Std Deviation RDW Coeff of Shirlene Plt Count MPV D-Dimer Quant (PE/DVT) 0.38 Sodium Potassium Chloride Carbon Dioxide Anion Gap BUN Creatinine Estim Creat Clear Calc Est GFR (MDRD) Af Amer Est GFR (MDRD) Non-Af BUN/Creatinine Ratio Glucose Calcium Total Bilirubin AST ALT Alkaline Phosphatase Troponin I < 0.015 B-Natriuretic Peptide 98.7 Total Protein Albumin Globulin Albumin/Globulin Ratio 01/23/20 01/23/20 01/24/20 06:30 06:30 06:12 WBC 8.8 10.8 RBC 4.66 4.93 Hgb 13.6 14.3 Hct 40.6 42.2 MCV 87.1 85.6 MCH 29.2 29.0 MCHC 33.5 33.9 RDW Std Deviation 38.7 37.7 RDW Coeff of Shirlene 12.1 12.2 Plt Count 235 342 MPV 12.8 H 12.0 D-Dimer Quant (PE/DVT) Sodium 139 Potassium 3.6 Chloride 102 Carbon Dioxide 31.0 Anion Gap 6 BUN 17 Creatinine 0.66 Estim Creat Clear Calc 50.18 Est GFR (MDRD) Af Amer 114 Est GFR (MDRD) Non-Af 94 BUN/Creatinine Ratio 25.9 H Glucose 90 Calcium 8.9 Total Bilirubin 0.60 AST 15 ALT 21 Alkaline Phosphatase 82 Troponin I B-Natriuretic Peptide Total Protein 6.4 Albumin 2.8 L Globulin 3.6 Albumin/Globulin Ratio 0.8 L 01/24/20 06:12 WBC RBC Hgb Hct MCV MCH MCHC RDW Std Deviation RDW Coeff of Shirlene Plt Count MPV D-Dimer Quant (PE/DVT) Sodium 137 Potassium 3.1 L Chloride 96 L Carbon Dioxide 33.0 H Anion Gap 8 BUN 25 H Creatinine 0.74 Estim Creat Clear Calc 50.18 Est GFR (MDRD) Af Amer 99 Est GFR (MDRD) Non-Af 82 BUN/Creatinine Ratio 33.7 H Glucose 97 Calcium 9.3 Total Bilirubin 0.50 AST 17 ALT 20 Alkaline Phosphatase 81 Troponin I B-Natriuretic Peptide Total Protein 6.7 Albumin 2.8 L Globulin 3.9 Albumin/Globulin Ratio 0.7 L Microbiology 01/18/20 14:05 Blood Culture (Wb) #2 - Right Forearm Blood Culture - Final No growth in 5 days. 01/18/20 14:05 Blood Culture (Wb) - Left Hand Blood Culture - Final No growth in 5 days. Clinical Impression(s) from Imaging Studies Chest X-Ray 01/18/20 13:53 IMPRESSION: No airspace consolidation or pleural effusion. Electronically Signed: Eduin Tinsley MD (Brooks) at 14:49 EST , Service support , Chest CTA 01/18/20 14:37 Current Medications Acetaminophen (Acetaminophen 325 Mg Tablet) 650 mg PO Q6H PRN PRN PRN Reason: Pain Score 1-10/Temp > 100.7 F Last Admin: 01/22/20 19:50 Dose: 650 mg Documented by: Albuterol/Ipratropium (Ipratropium/Albuterol Sulfate 3 Ml Ampul.Neb) 3 ml INHALATION Q4HWA.RT [facility] Last Admin: 01/24/20 07:28 Dose: 3 ml Documented by: Dexamethasone (Dexamethasone 4 Mg Tablet) 6 mg PO DAILY [facility] Stop: 01/27/20 10:01 Last Admin: 01/23/20 08:37 Dose: 6 mg Documented by: Duloxetine HCl (Duloxetine Hcl 60 Mg Capsule) 60 mg PO QHS [facility] Last Admin: 01/23/20 20:38 Dose: 60 mg Documented by: Enoxaparin Sodium (Enoxaparin 40 Mg/0.4 Ml Syringe) 40 mg SC Q12 [facility] Last Admin: 01/23/20 20:37 Dose: 40 mg Documented by: Furosemide (Furosemide 40 Mg/4 Ml Vial) 40 mg IV BID@1000,1700 [facility] Last Admin: 01/23/20 16:39 Dose: 40 mg Documented by: Guaifenesin (Guaifenesin 10 Ml Udc (200mg/10ml)) 10 ml PO Q4H PRN PRN PRN Reason: COUGH Last Admin: 01/22/20 19:51 Dose: 10 ml Documented by: Sodium Chloride () 500 mls @ 15 mls/hr IV PRN PRN PRN Reason: Blood Transfusion Last Infusion: 01/23/20 12:43 Dose: 0 mls/hr Documented by: Sodium Chloride () 250 mls @ 15 mls/hr IV .[id number] PRN PRN Reason: Saline Flush Potassium Chloride () 10 meq in 100 mls @ 100 mls/hr IV BOLUS Q1H [facility] Stop: 01/24/20 12:44 Melatonin (Melatonin 3 Mg Tablet) 3 mg PO QHS PRN PRN PRN Reason: INSOMNIA Last Admin: 01/21/20 21:56 Dose: 3 mg Documented by: Ondansetron HCl (Ondansetron 4 Mg/2 Ml Vial) 4 mg IV Q8H PRN PRN PRN Reason: NAUSEA/VOMITING Last Admin: 01/20/20 06:30 Dose: 4 mg Documented by: Sodium Chloride (0.9% Saline Lock 10 Ml Syringe) 10 - 40 ml IV UD PRN PRN Reason: SALINE FLUSH Last Admin: 01/23/20 16:39 Dose: 5 ml Documented by: Medical Necessity - Tobacco Use Smoking Status: Former smoker Assessment/Plan All Active Problems (Last Reviewed 01/16/20 @ 13:21 by Emmanuel GALLOWAY, PA) COVID-19 (Acute) Contact with or suspected exposure to other viral communicable disease (Acute) RECOMMENDATIONS: 1. Wean supplemental oxygen to maintain saturations at or above 90%. 2. Continue Decadron to complete a 10-day treatment course. 3. Encourage incentive spirometer use and mobilize patient as tolerated. 4. Continue IV Lasix as tolerated by hemodynamics and renal function. IMPRESSIONS: 1. Acute hypoxemic respiratory failure secondary to COVID-19 pneumonia Plan to continue current supportive measures with supplemental oxygen to maintain saturations at or above 90%. The patient has already received convalescent plasma and completed a treatment course of remdesivir. She will be continued on Decadron to complete a 10-day treatment course. The patient will be continued on IV diuretic therapy as tolerated by hemodynamics and renal function. Encourage incentive spirometer use and mobilize patient as tolerated. 2. Depression/anxiety/GERD/hypothyroidism/obesity Complicates care, management, recovery and prognosis. Continue home medications as indicated. This note was generated with [employer] software. It may contain incorrect words, spelling, and punctuation that were not noted in checking the note before signing. Inpatient E&M: 49355 [facility] Hosp L2
[2020-01-24] MEDS: Enoxaparin 40 MG/0.4 ML Syringe SC ×2 (09:54→20:52)
[2020-01-24] MEDS: dexAMETHasone 4 MG Tablet 6 MG PO (09:54)
[2020-01-24] MEDS: Furosemide 40 MG/4 ML Vial IV ×2 (09:54→16:46)
[2020-01-24] MEDS: Potassium Chloride 10mEq/100mL 10 MEQ/100 ML IV.SOLN. 100 MEQ IV BOLUS (09:55)
[2020-01-24] MEDS: Acetaminophen 325 MG Tablet 650 MG PO (09:56)
[2020-01-24] MEDS: Potassium Chloride 10mEq/100mL 10 MEQ/100 ML IV.SOLN. 75 MEQ IV BOLUS ×2 (11:40→13:00)
[2020-01-24] MEDS: guaiFENesin 10 ML UDC (200MG/10ML) PO (11:41)
--- NOTE | 2020-01-24 12:23 | PN_ITS ---
Patient Problems: Active and Suspected Problems (Last Reviewed 01/16/20 @ 13:21 by Emmanuel GALLOWAY, PA) COVID-19 (Acute) Subjective: Patient seen and examined. She acute tells me she is feeling better and feels like her breathing is getting better. She remains on 15 L of oxygen. Review of symptoms otherwise negative. Potassium was 3.1 today. Vitals/I&O's: Vital Signs Temp Pulse Resp BP Pulse Ox 98.5 F 80 23 H 100/67 90 01/24/20 09:05 01/24/20 10:38 01/24/20 10:38 01/24/20 09:05 01/24/20 10:38 Oxygen Flow Rate (L/min) 15 Oxygen Delivery Method Nasal Cannula Weight: 195 lb 5.273 oz Body Mass Index (BMI) 30.5 Intake and Output for Last 24 Hours 01/22/20 01/23/20 01/24/20 23:59 23:59 23:59 Intake Total 490 / 490 970 / 970 100 / 100 Output Total 750 / 750 1600 / 1600 250 / 250 Balance -260 / -260 -630 / -630 -150 / -150 General: Alert, Cooperative, No apparent distress, anxious HEENT: Atraumatic, PERRLA, EOMI, Normocephalic Oral: Dry Mucosa Neck: Supple, No JVD, Negative Carotid Bruits Lungs: - - diminished breath sounds bibasally, no wheezes or crackles. On 10L of oxygen by nasal canula Cardiovascular: Regular rate, Regular Rhythm, Normal S1, Normal S2, No murmurs Abdomen: Bowel Sounds Present, Soft, Non Tender, Non-Distended, No Hepato- splenomegaly Extremities: No clubbing, No cyanosis, No edema, Capillary Refill Less than 3 Seconds Skin: No rashes, No breakdown Musculoskeletal: No Tenderness to Palpation of Joints or Extremities Lymphatic: No Cervical, Supraclavicular, or Inguinal Adenopathy Neurological: Cranial nerves II-XII grossly intact, Neuro grossly intact, Motor Exam 5/5 strength throughout Psych/Mental Status: Normal Affect, Appropriate, Alert and oriented to time, place, person, mood and affect Microbiology Past 72 Hours 01/18/20 14:05 Blood Culture (Wb) #2 - Right Forearm Blood Culture - Final No growth in 5 days. 11/29/20 14:05 Blood Culture (Wb) - Left Hand Blood Culture - Final No growth in 5 days. Laboratory Results 01/24/20 06:12: WBC 10.8, RBC 4.93, Hgb 14.3, Hct 42.2, MCV 85.6, MCH 29.0, MCHC 33.9, RDW Std Deviation 37.7, RDW Coeff of Shirlene 12.2, Plt Count 342, MPV 12.0 01/24/20 06:12: Sodium 137, Potassium 3.1 L, Chloride 96 L, Carbon Dioxide 33.0 H, Anion Gap 8, BUN 25 H, Creatinine 0.74, Estim Creat Clear Calc 50.18, Est GFR (MDRD) Af Amer 99, Est GFR (MDRD) Non-Af 82, BUN/Creatinine Ratio 33.7 H, Glucose 97, Calcium 9.3, Total Bilirubin 0.50, AST 17, ALT 20, Alkaline Phosphatase 81, Total Protein 6.7, Albumin 2.8 L, Globulin 3.9, Albumin/Globulin Ratio 0.7 L Current Medications Acetaminophen (Acetaminophen 325 Mg Tablet) 650 mg PO Q6H PRN PRN PRN Reason: Pain Score 1-10/Temp > 100.7 F Last Admin: 01/24/20 09:56 Dose: 650 mg Documented by: Albuterol/Ipratropium (Ipratropium/Albuterol Sulfate 3 Ml Ampul.Neb) 3 ml INHALATION Q4HWA.RT [facility] Last Admin: 01/24/20 10:38 Dose: 3 ml Documented by: Dexamethasone (Dexamethasone 4 Mg Tablet) 6 mg PO DAILY [facility] Stop: 01/27/20 10:01 Last Admin: 01/24/20 09:54 Dose: 6 mg Documented by: Duloxetine HCl (Duloxetine Hcl 60 Mg Capsule) 60 mg PO QHS [facility] Last Admin: 01/23/20 20:38 Dose: 60 mg Documented by: Enoxaparin Sodium (Enoxaparin 40 Mg/0.4 Ml Syringe) 40 mg SC Q12 [facility] Last Admin: 01/24/20 09:54 Dose: 40 mg Documented by: Furosemide (Furosemide 40 Mg/4 Ml Vial) 40 mg IV BID@1000,1700 [facility] Last Admin: 01/24/20 09:54 Dose: 40 mg Documented by: Guaifenesin (Guaifenesin 10 Ml Udc (200mg/10ml)) 10 ml PO Q4H PRN PRN PRN Reason: COUGH Last Admin: 01/24/20 11:41 Dose: 10 ml Documented by: Sodium Chloride () 500 mls @ 15 mls/hr IV PRN PRN PRN Reason: Blood Transfusion Last Infusion: 01/23/20 12:43 Dose: 0 mls/hr Documented by: Sodium Chloride () 250 mls @ 15 mls/hr IV .[id number] PRN PRN Reason: Saline Flush Potassium Chloride () 10 meq in 100 mls @ 100 mls/hr IV BOLUS Q1H [facility] Stop: 01/24/20 12:44 Last Admin: 01/24/20 11:40 Dose: 75 mls/hr Documented by: Melatonin (Melatonin 3 Mg Tablet) 3 mg PO QHS PRN PRN PRN Reason: INSOMNIA Last Admin: 01/21/20 21:56 Dose: 3 mg Documented by: Ondansetron HCl (Ondansetron 4 Mg/2 Ml Vial) 4 mg IV Q8H PRN PRN PRN Reason: NAUSEA/VOMITING Last Admin: 01/20/20 06:30 Dose: 4 mg Documented by: Sodium Chloride (0.9% Saline Lock 10 Ml Syringe) 10 - 40 ml IV UD PRN PRN Reason: SALINE FLUSH Last Admin: 01/23/20 16:39 Dose: 5 ml Documented by: STROKE Vital Signs/Narrative: Vital Signs Temp Pulse Resp BP Pulse Ox 01/24/20 10:38 80 23 H 90 01/24/20 09:05 98.5 F 75 20 H 100/67 93 Medical Necessity - Tobacco Use Smoking Status: Former smoker Assessment/Plan All Active Problems (Last Reviewed 01/16/20 @ 13:21 by Emmanuel GALLOWAY, PA) COVID-19 (Acute) Contact with or suspected exposure to other viral communicable disease (Acute) #acute hypoxic respiratory failure due to COVID 19 infection * now on 15L fo oxygen by nasal canula * has completed a course of remdesivir, and also received convalescent plasma * on PO decadrone and IV lasix for diuresis * breathing treatment with bronchodilators. * titrate oxygen to maintain sats >90% * #COVID 19: as above. #Hypokalemia: Potassium is 3.1 today. Replace per protocol #Hypothyroidism: on synthroid # GERD: on PPI #Anxiety and depression: on cymbalta DVT prophylaxis: lovenox 40mg q12 Inpatient E&M: 89530 Subs Hosp L2
[2020-01-24] MEDS: Potassium Chloride 10mEq/100mL 10 MEQ/100 ML IV.SOLN. 60 MEQ IV BOLUS (14:47)
[2020-01-24] MEDS: DULoxetine Hcl 60 MG Capsule PO (20:52)
[2020-01-25] VITALS (8 sets, daily range): BP systolic 106–129; BP diastolic 58–77; PULSE 73–94; RESP 16–20; TEMP 36.6–37.1; O2SAT 91–98
--- NOTE | 2020-01-25 07:05 | PN_ITS ---
Patient Problems: Active and Suspected Problems (Last Reviewed 01/16/20 @ 13:21 by Emmanuel GALLOWAY, NILESH) COVID-19 (Acute) Subjective: The patient was seen and examined at the bedside this morning. Events from the last 24 hours have been reviewed. The patient is currently afebrile, hemodynamically stable and maintaining appropriate oxygen saturations on 12 L/min via nasal cannula. The patient did receive convalescent plasma and has completed her treatment course of remdesivir. She remains on scheduled Decadron and IV diuretic therapy. Creatinine remains stable. Objective: The patient's most recent lab work, culture data and imaging studies have all been personally reviewed. Coronavirus antigen was positive on January 17. Blood cultures have shown no growth to date. - Physical Exam Vitals/I&O's: Vital Signs Temp Pulse Resp BP Pulse Ox 98.1 F 78 18 126/74 H 93 01/25/20 03:40 01/25/20 03:40 01/25/20 03:40 01/25/20 03:40 01/25/20 03:40 Oxygen Flow Rate (L/min) 12 Oxygen Delivery Method Nasal Cannula Weight: 195 lb 1 oz Body Mass Index (BMI) 30.5 Intake and Output for Last 24 Hours 01/23/20 01/24/20 01/25/20 23:59 23:59 23:59 Intake Total 970 / 970 400 / 400 Output Total 1600 / 1600 1700 / 1700 300 / 300 Balance -630 / -630 -1300 / -1300 -300 / -300 General: Alert, Oriented x3, Cooperative, No apparent distress HEENT: Atraumatic, PERRLA, Normocephalic Oral: Moist Mucosa, No Gingival or Mucosal Lesions/ Ulcerations Neck: Supple, No Nodes, Trachea Midline Lungs: No rhonchi, No wheeze, No rales, Diminished Cardiovascular: Regular rate, Regular Rhythm, Normal S1, Normal S2, No murmurs Abdomen: Bowel Sounds Present, Soft, Non Tender, Obese Extremities: No clubbing, No cyanosis, No edema Skin: No breakdown Musculoskeletal: No Tenderness to Palpation of Joints or Extremities Lymphatic: No Cervical, Supraclavicular, or Inguinal Adenopathy Neurological: Cranial nerves II-XII grossly intact, Neuro grossly intact Psych/Mental Status: Normal Affect Labs (Last 48 Hours) 1201/23/20 01/24/20 06:30 06:30 06:12 WBC 8.8 10.8 RBC 4.66 4.93 Hgb 13.6 14.3 Hct 40.6 42.2 MCV 87.1 85.6 MCH 29.2 29.0 MCHC 33.5 33.9 RDW Std Deviation 38.7 37.7 RDW Coeff of Shirlene 12.1 12.2 Plt Count 235 342 MPV 12.8 H 12.0 Sodium 139 Potassium 3.6 Chloride 102 Carbon Dioxide 31.0 Anion Gap 6 BUN 17 Creatinine 0.66 Estim Creat Clear Calc 50.18 Est GFR (MDRD) Af Amer 114 Est GFR (MDRD) Non-Af 94 BUN/Creatinine Ratio 25.9 H Glucose 90 Calcium 8.9 Total Bilirubin 0.60 AST 15 ALT 21 Alkaline Phosphatase 82 Total Protein 6.4 Albumin 2.8 L Globulin 3.6 Albumin/Globulin Ratio 0.8 L 01/24/20 06:12 WBC RBC Hgb Hct MCV MCH MCHC RDW Std Deviation RDW Coeff of Shirlene Plt Count MPV Sodium 137 Potassium 3.1 L Chloride 96 L Carbon Dioxide 33.0 H Anion Gap 8 BUN 25 H Creatinine 0.74 Estim Creat Clear Calc 50.18 Est GFR (MDRD) Af Amer 99 Est GFR (MDRD) Non-Af 82 BUN/Creatinine Ratio 33.7 H Glucose 97 Calcium 9.3 Total Bilirubin 0.50 AST 17 ALT 20 Alkaline Phosphatase 81 Total Protein 6.7 Albumin 2.8 L Globulin 3.9 Albumin/Globulin Ratio 0.7 L Microbiology 01/18/20 14:05 Blood Culture (Wb) #2 - Right Forearm Blood Culture - Final No growth in 5 days. 01/18/20 14:05 Blood Culture (Wb) - Left Hand Blood Culture - Final No growth in 5 days. Clinical Impression(s) from Imaging Studies Chest X-Ray 01/18/20 13:53 IMPRESSION: No airspace consolidation or pleural effusion. Electronically Signed: Eduin Tinsley MD ([place]) at 14:49 EST , Service support , Chest CTA 01/18/20 14:37 Current Medications Acetaminophen (Acetaminophen 325 Mg Tablet) 650 mg PO Q6H PRN PRN PRN Reason: Pain Score 1-10/Temp > 100.7 F Last Admin: 01/24/20 09:56 Dose: 650 mg Documented by: Albuterol/Ipratropium (Ipratropium/Albuterol Sulfate 3 Ml Ampul.Neb) 3 ml INHALATION Q4HWA.RT [facility] Last Admin: 01/24/20 19:12 Dose: 3 ml Documented by: Dexamethasone (Dexamethasone 4 Mg Tablet) 6 mg PO DAILY [facility] Stop: 01/27/20 10:01 Last Admin: 01/24/20 09:54 Dose: 6 mg Documented by: Duloxetine HCl (Duloxetine Hcl 60 Mg Capsule) 60 mg PO QHS [facility] Last Admin: 01/24/20 20:52 Dose: 60 mg Documented by: Enoxaparin Sodium (Enoxaparin 40 Mg/0.4 Ml Syringe) 40 mg SC Q12 [facility] Last Admin: 01/24/20 20:52 Dose: 40 mg Documented by: Furosemide (Furosemide 40 Mg/4 Ml Vial) 40 mg IV BID@1000,1700 [facility] Last Admin: 01/24/20 16:46 Dose: 40 mg Documented by: Guaifenesin (Guaifenesin 10 Ml Udc (200mg/10ml)) 10 ml PO Q4H PRN PRN PRN Reason: COUGH Last Admin: 01/24/20 11:41 Dose: 10 ml Documented by: Sodium Chloride () 500 mls @ 15 mls/hr IV PRN PRN PRN Reason: Blood Transfusion Last Infusion: 01/23/20 12:43 Dose: 0 mls/hr Documented by: Sodium Chloride () 250 mls @ 15 mls/hr IV .[id number] PRN PRN Reason: Saline Flush Melatonin (Melatonin 3 Mg Tablet) 3 mg PO QHS PRN PRN PRN Reason: INSOMNIA Last Admin: 01/21/20 21:56 Dose: 3 mg Documented by: Ondansetron HCl (Ondansetron 4 Mg/2 Ml Vial) 4 mg IV Q8H PRN PRN PRN Reason: NAUSEA/VOMITING Last Admin: 01/20/20 06:30 Dose: 4 mg Documented by: Sodium Chloride (0.9% Saline Lock 10 Ml Syringe) 10 - 40 ml IV UD PRN PRN Reason: SALINE FLUSH Last Admin: 01/23/20 16:39 Dose: 5 ml Documented by: Medical Necessity - Tobacco Use Smoking Status: Former smoker Assessment/Plan All Active Problems (Last Reviewed 01/16/20 @ 13:21 by Emmanuel GALLOWAY, PA) COVID-19 (Acute) Contact with or suspected exposure to other viral communicable disease (Acute) RECOMMENDATIONS: 1. Wean supplemental oxygen to maintain saturations at or above 90%. 2. Continue Decadron to complete a 10-day treatment course. 3. Encourage incentive spirometer use and mobilize patient as tolerated. 4. Continue IV Lasix as tolerated by hemodynamics and renal function. IMPRESSIONS: 1. Acute hypoxemic respiratory failure secondary to COVID-19 pneumonia Plan to continue current supportive measures with supplemental oxygen to maintain saturations at or above 90%. The patient has already received convalescent plasma and completed a treatment course of remdesivir. She will be continued on Decadron to complete a 10-day treatment course. The patient will be continued on IV diuretic therapy as tolerated by hemodynamics and renal function. Encourage incentive spirometer use and mobilize patient as tolerated. 2. Depression/anxiety/GERD/hypothyroidism/obesity Complicates care, management, recovery and prognosis. Continue home medications as indicated. This note was generated with [email or web address] dictation software. It may contain incorrect words, spelling, and punctuation that were not noted in checking the note before signing. Inpatient E&M: 37495 Subs Hosp L2
[2020-01-25] MEDS: Ipratropium/Albuterol Sulfate 3 ML AMPUL.NEB INHALATION ×4 (07:12→19:46)
[2020-01-25 08:31] LABS: Anion Gap 5 (5-15); BUN 28 mg/dL (7-18); BUN/Creat Ratio 34.1 RATIO (10-20); Calcium,Total 9.3 mg/dL (8.5-10.1); Chloride 101 mmol/L (98-107); Creatinine, Serum 0.82 mg/dL (0.55-1.02); EST Glomerular Filtration Rate 73 mL/min (>60); Est Glom Filt Rate - Afr Amer 88 mL/min (>60); Estimated Creatinine Clearance 61.19 ml/min; Glucose 111 mg/dL (74-106); Potassium 4.6 mmol/L (3.5-5.1); Sodium Level 140 mmol/L (136-145)
[2020-01-25] MEDS: Enoxaparin 40 MG/0.4 ML Syringe SC ×2 (08:52→20:30)
[2020-01-25] MEDS: dexAMETHasone 4 MG Tablet 6 MG PO (08:52)
[2020-01-25] MEDS: 0.9% Saline Lock 10 ML Syringe IV ×3 (08:53→20:30)
[2020-01-25] MEDS: Furosemide 40 MG/4 ML Vial IV ×2 (08:53→19:43)
--- NOTE | 2020-01-25 11:00 | PN_ITS ---
Patient Problems: Active and Suspected Problems (Last Reviewed 01/16/20 @ 13:21 by Emmanuel GALLOWAY, PA) COVID-19 (Acute) Subjective: Patient seen and examined. She feels her breathing is getting better. She is on 10 L of oxygen today. She complains of some heartburn and would like her PPI resumed. Review of systems otherwise negative. She has remained hemodynamically stable. Vitals/I&O's: Vital Signs Temp Pulse Resp BP Pulse Ox 98 F 94 18 120/77 91 01/25/20 08:40 01/25/20 10:59 01/25/20 10:59 01/25/20 08:40 01/25/20 08:40 Oxygen Flow Rate (L/min) 10 Oxygen Delivery Method Nasal Cannula Weight: 195 lb 1 oz Body Mass Index (BMI) 30.5 Intake and Output for Last 24 Hours 01/23/20 01/24/20 01/25/20 23:59 23:59 23:59 Intake Total 970 / 970 400 / 400 Output Total 1600 / 1600 1700 / 1700 300 / 300 Balance -630 / -630 -1300 / -1300 -300 / -300 General: Alert, Cooperative, No apparent distress, HEENT: Atraumatic, PERRLA, EOMI, Normocephalic Oral: Dry Mucosa Neck: Supple, No JVD, Negative Carotid Bruits Lungs: - - diminished breath sounds bibasally, no wheezes or crackles. On 10L of oxygen by nasal canula Cardiovascular: Regular rate, Regular Rhythm, Normal S1, Normal S2, No murmurs Abdomen: Bowel Sounds Present, Soft, Non Tender, Non-Distended, No Hepato-s plenomegaly Extremities: No clubbing, No cyanosis, No edema, Capillary Refill Less than 3 Seconds Skin: No rashes, No breakdown Musculoskeletal: No Tenderness to Palpation of Joints or Extremities Lymphatic: No Cervical, Supraclavicular, or Inguinal Adenopathy Neurological: Cranial nerves II-XII grossly intact, Neuro grossly intact, Motor Exam 5/5 strength throughout Psych/Mental Status: Normal Affect, Appropriate, Alert and oriented to time, yovany ce, person, mood and affect Microbiology Past 72 Hours 01/18/20 14:05 Blood Culture (Wb) #2 - Right Forearm Blood Culture - Final No growth in 5 days. 01/18/20 14:05 Blood Culture (Wb) - Left Hand Blood Culture - Final No growth in 5 days. Laboratory Results 01/25/20 07:40: Sodium 140, Potassium 4.6, Chloride 101, Carbon Dioxide 34.0 H, Anion Gap 5, BUN 28 H, Creatinine 0.82, Estim Creat Clear Calc 61.19, Est GFR (MDRD) Af Amer 88, Est GFR (MDRD) Non-Af 73, BUN/Creatinine Ratio 34.1 H, Glucose 111 H, Calcium 9.3 Diagnostic Data Chest X-Ray 01/18/20 13:53 IMPRESSION: No airspace consolidation or pleural effusion. Electronically Signed: Eduin Tinsley MD ([place]) at 14:49 EST , Service support , Chest CTA 01/18/20 14:37 Current Medications Acetaminophen (Acetaminophen 325 Mg Tablet) 650 mg PO Q6H PRN PRN PRN Reason: Pain Score 1-10/Temp > 100.7 F Last Admin: 01/24/20 09:56 Dose: 650 mg Documented by: Albuterol/Ipratropium (Ipratropium/Albuterol Sulfate 3 Ml Ampul.Neb) 3 ml INHALATION Q4HWA.RT COUNTS [facility]CLUDE 234 BEDS AT [facility] Last Admin: 01/25/20 10:59 Dose: 3 ml Documented by: Dexamethasone (Dexamethasone 4 Mg Tablet) 6 mg PO DAILY [facility]S [facility] 234 BEDS AT [facility] Stop: 01/27/20 10:01 Last Admin: 01/25/20 08:52 Dose: 6 mg Documented by: Duloxetine HCl (Duloxetine Hcl 60 Mg Capsule) 60 mg PO QHS [facility]S [facility] 234 BEDS AT [facility] Last Admin: 01/24/20 20:52 Dose: 60 mg Documented by: Enoxaparin Sodium (Enoxaparin 40 Mg/0.4 Ml Syringe) 40 mg SC Q12 [facility] Last Admin: 01/25/20 08:52 Dose: 40 mg Documented by: Furosemide (Furosemide 40 Mg/4 Ml Vial) 40 mg IV BID@1000,1700 COUNTS [facility]CLUDE 234 BEDS AT [facility] Last Admin: 01/25/20 08:53 Dose: 40 mg Documented by: Guaifenesin (Guaifenesin 10 Ml Udc (200mg/10ml)) 10 ml PO Q4H PRN PRN PRN Reason: COUGH Last Admin: 01/24/20 11:41 Dose: 10 ml Documented by: Sodium Chloride () 500 mls @ 15 mls/hr IV PRN PRN PRN Reason: Blood Transfusion Last Infusion: 01/23/20 12:43 Dose: 0 mls/hr Documented by: Sodium Chloride () 250 mls @ 15 mls/hr IV .[id number] PRN PRN Reason: Saline Flush Levothyroxine Sodium (Levothyroxine 175 Mcg Tablet) 175 mcg PO DAILY [facility] Melatonin (Melatonin 3 Mg Tablet) 3 mg PO QHS PRN PRN PRN Reason: INSOMNIA Last Admin: 01/21/20 21:56 Dose: 3 mg Documented by: Non-Formulary Medication (Esomeprazole Mag Trihydrate) 20 mg PO DAILY [facility] Ondansetron HCl (Ondansetron 4 Mg/2 Ml Vial) 4 mg IV Q8H PRN PRN PRN Reason: NAUSEA/VOMITING Last Admin: 01/20/20 06:30 Dose: 4 mg Documented by: Sodium Chloride (0.9% Saline Lock 10 Ml Syringe) 10 - 40 ml IV UD PRN PRN Reason: SALINE FLUSH Last Admin: 01/25/20 08:53 Dose: 10 ml Documented by: STROKE Vital Signs/Narrative: Vital Signs Temp Pulse Resp BP Pulse Ox 01/25/20 10:59 94 18 01/25/20 08:40 98 F 75 20 H 120/77 91 01/25/20 07:15 75 18 94 Medical Necessity - Tobacco Use Smoking Status: Former smoker Assessment/Plan All Active Problems (Last Reviewed 01/16/20 @ 13:21 by Emmanuel GALLOWAY, PA) COVID-19 (Acute) Contact with or suspected exposure to other viral communicable disease (Acute) #acute hypoxic respiratory failure due to COVID 19 infection * now on 10L of oxygen by nasal canula * has completed a course of remdesivir, and also received convalescent plasma * on PO decadrone and IV lasix for diuresis * breathing treatment with bronchodilators. * titrate oxygen to maintain sats >90% * #COVID 19: as above. #Hypokalemia: resolved. #Hypothyroidism: on synthroid # GERD: on PPI #Anxiety and depression: on cymbalta DVT prophylaxis: lovenox 40mg q12 Inpatient E&M: [id number] [facility] Hosp L2
[2020-01-25] MEDS: Pantoprazole Sodium 20 MG Tablet PO (15:07)
[2020-01-25] MEDS: Levothyroxine 175 MCG Tablet PO (15:08)
--- NOTE | 2020-01-25 16:16 | NURSING ---
This nurse called Ms. Prince's daughter Ms. You. Update given.
[2020-01-25] MEDS: DULoxetine Hcl 60 MG Capsule PO (20:30)
[2020-01-26] VITALS (8 sets, daily range): BP systolic 127–138; BP diastolic 68–73; PULSE 73–84; RESP 18–24; TEMP 36.6–36.8; O2SAT 93–96
[2020-01-26] MEDS: Acetaminophen 325 MG Tablet 650 MG PO (00:42)
--- NOTE | 2020-01-26 04:35 | NURSING ---
Noted on heart monitor that pt without pulse or oxygen saturation. This RN entered room to find pt without respirations, without apical pulse or radial pulse. Second RN in to confirm pt expiration. MD and hospital supervisor final notified.
[2020-01-26 05:06] LABS: Absolute Lymphocyte Count 1.05 X10^3/uL (0.83-4.51); Absolute Neutrophil Count 11.1 X10^3/uL (2.0-7.7); Basophil# 0.02 X10^3/uL; Basophil% 0.1 % (0-1); Eosinophil# 0.06 X10^3/uL; Eosinophils% 0.4 % (0-5); Hematocrit 45.1 % (37-47); Hemoglobin 14.6 g/dL (12.0-15.0); Lymphocyte # 1.05 X10^3/ul (4.0); Lymphocyte % 7.8 % (19-41); Mean Corp Hgb Conc 32.4 g/dL (32-36); Mean Corpuscular Hgb 27.8 pg (27.0-32.0); Mean Corpuscular Volume 85.9 fL (81-99); Mean Platelet Vol. 10.3 fl (6.2-12.0); Monocyte# 1.05 X10^3/uL; Monocyte% 7.8 % (0-10); NRBC Flagged by Analyzer 0 % (0-5); Neutrophil # 11.06 X10^3/uL (2.7-7.7); Neutrophil % 82.6 % (47-70); Platelet Count 443 K/mm3 (150-450); RBC Distribution Width CV 12.2 % (11.6-14.6); RBC Distribution Width SD 38.4 fl (35.1-43.9); Red Blood Count 5.25 M/mm3 (4.2-5.4); White Blood Count 13.4 K/mm3 (4.4-11.0)
[2020-01-26 05:35] LABS: ALB/GLOB Ratio 0.7 RATIO (0.9-2.4); AST(SGOT) 18 U/L (15-37); Alanine Aminotransfer ALT/SGPT 18 U/L (13-56); Albumin, Serum 2.9 g/dL (3.2-5.0); Alkaline Phosphatase 84 U/L (45-117); Anion Gap 9 (5-15); BUN 30 mg/dL (7-18); BUN/Creat Ratio 35.6 RATIO (10-20); Calcium,Total 9.7 mg/dL (8.5-10.1); Chloride 93 mmol/L (98-107); Creatinine, Serum 0.84 mg/dL (0.55-1.02); EST Glomerular Filtration Rate 71 mL/min (>60); Est Glom Filt Rate - Afr Amer 86 mL/min (>60); Estimated Creatinine Clearance 59.74 ml/min; Globulin 4.2 g/dL (2.2-4.2); Glucose 120 mg/dL (74-106); Potassium 3.8 mmol/L (3.5-5.1); Protein, Total 7.1 g/dL (6.4-8.2); Sodium Level 135 mmol/L (136-145)
[2020-01-26] MEDS: Levothyroxine 175 MCG Tablet PO (06:45)
[2020-01-26] MEDS: Ipratropium/Albuterol Sulfate 3 ML AMPUL.NEB INHALATION ×4 (07:01→19:40)
[2020-01-26] MEDS: Enoxaparin 40 MG/0.4 ML Syringe SC ×2 (08:26→21:29)
[2020-01-26] MEDS: dexAMETHasone 4 MG Tablet 6 MG PO (08:27)
[2020-01-26] MEDS: Pantoprazole Sodium 20 MG Tablet PO (08:28)
[2020-01-26] MEDS: Furosemide 40 MG/4 ML Vial IV ×2 (08:28→16:59)
[2020-01-26] MEDS: 0.9% Saline Lock 10 ML Syringe IV ×2 (08:28→16:59)
--- NOTE | 2020-01-26 13:39 | PN_ITS ---
Patient Problems: Active and Suspected Problems (Last Reviewed 01/16/20 @ 13:21 by Emmanuel GALLOWAY, PA) COVID-19 (Acute) Subjective: Patient did okay overnight. No acute issues were reported. Patient subjectively feels unchanged compared to previous. Patient does report that she feels more fatigued today, but attributes this to decreased sleep overnight secondary to leg cramps. - Physical Exam Vitals/I&O's: Vital Signs Temp Pulse Resp BP Pulse Ox 36.6 C 79 20 H 131/72 H 94 01/26/20 08:17 01/26/20 10:43 01/26/20 10:43 01/26/20 08:17 01/26/20 10:43 Oxygen Flow Rate (L/min) 8 Oxygen Delivery Method Nasal Cannula Weight: 89.5 kg Body Mass Index (BMI) 30.5 Intake and Output for Last 24 Hours 01/24/20 01/25/20 01/26/20 23:59 23:59 23:59 Intake Total 400 / 400 200 / 200 Output Total 1700 / 1700 800 / 800 5900 / 5900 Balance -1300 / -1300 -800 / -800 -5700 / -5700 General: Alert, Oriented x3, Cooperative, No apparent distress, - - Obese. Speaking in full sentences. HEENT: Atraumatic, PERRLA, EOMI, Normocephalic, - - No scleral icterus or injection noted Oral: Moist Mucosa, No Gingival or Mucosal Lesions/ Ulcerations Neck: Supple, No JVD, No Nodes, Trachea Midline Lungs: No rhonchi, No wheeze, No rales, Diminished, - - Symmetric expansion. No dullness to percussion. Cardiovascular: Regular rate, Regular Rhythm, Normal S1, Normal S2, No murmurs, No rub noted, No Gallop Abdomen: Bowel Sounds Present, Soft, Non Tender, Non-Distended, Obese Extremities: No clubbing, No cyanosis, No edema, Capillary Refill Less than 3 Seconds Skin: No rashes, No breakdown Musculoskeletal: No Tenderness to Palpation of Joints or Extremities Lymphatic: No Cervical, Supraclavicular, or Inguinal Adenopathy Neurological: Cranial nerves II-XII grossly intact, Neuro grossly intact, Motor Exam 5/5 strength throughout Psych/Mental Status: Alert and oriented to time, place, person, mood and affect Microbiology Past 72 Hours 11/29/20 14:05 Blood Culture (Wb) #2 - Right Forearm Blood Culture - Final No growth in 5 days. 01/18/20 14:05 Blood Culture (Wb) - Left Hand Blood Culture - Final No growth in 5 days. Laboratory Results 01/26/20 04:55: WBC 13.4 H, RBC 5.25, Hgb 14.6, Hct 45.1, MCV 85.9, MCH 27.8, MCHC 32.4, RDW Std Deviation 38.4, RDW Coeff of Shirlene 12.2, Plt Count 443, MPV 10.3, Immature Gran % (Auto) 1.300 H, Neut % (Auto) 82.6 H, Lymph % (Auto) 7.8 L , [place] % (Auto) 7.8, Eos % (Auto) 0.4, Baso % (Auto) 0.1, Absolute Neuts (auto) 11.1 H, Absolute Lymphs (auto) 1.05, Nucleated RBC % 0 01/26/20 04:55: Sodium 135 L, Potassium 3.8, Chloride 93 L, Carbon Dioxide 33.0 H, Anion Gap 9, BUN 30 H, Creatinine 0.84, Estim Creat Clear Calc 59.74, Est GFR (MDRD) Af Amer 86, Est GFR (MDRD) Non-Af 71, BUN/Creatinine Ratio 35.6 H, Glucose 120 H, Calcium 9.7, Total Bilirubin 0.50, AST 18, ALT 18, Alkaline Phosphatase 84, Total Protein 7.1, Albumin 2.9 L, Globulin 4.2, Albumin/Globulin Ratio 0.7 L Current Medications Acetaminophen (Acetaminophen 325 Mg Tablet) 650 mg PO Q6H PRN PRN PRN Reason: Pain Score 1-10/Temp > 100.7 F Last Admin: 01/26/20 00:42 Dose: 650 mg Documented by: Albuterol/Ipratropium (Ipratropium/Albuterol Sulfate 3 Ml Ampul.Neb) 3 ml INHALATION Q4HWA.RT [facility] Last Admin: 01/26/20 10:43 Dose: 3 ml Documented by: Dexamethasone (Dexamethasone 4 Mg Tablet) 6 mg PO DAILY [facility] Stop: 01/27/20 10:01 Last Admin: 01/26/20 08:27 Dose: 6 mg Documented by: Duloxetine HCl (Duloxetine Hcl 60 Mg Capsule) 60 mg PO QHS [facility] Last Admin: 01/25/20 20:30 Dose: 60 mg Documented by: Enoxaparin Sodium (Enoxaparin 40 Mg/0.4 Ml Syringe) 40 mg SC Q12 [facility] Last Admin: 01/26/20 08:26 Dose: 40 mg Documented by: Furosemide (Furosemide 40 Mg/4 Ml Vial) 40 mg IV BID@1000,1700 [facility] Last Admin: 01/26/20 08:28 Dose: 40 mg Documented by: Guaifenesin (Guaifenesin 10 Ml Udc (200mg/10ml)) 10 ml PO Q4H PRN PRN PRN Reason: COUGH Last Admin: 01/24/20 11:41 Dose: 10 ml Documented by: Sodium Chloride () 500 mls @ 15 mls/hr IV PRN PRN PRN Reason: Blood Transfusion Last Infusion: 01/23/20 12:43 Dose: 0 mls/hr Documented by: Sodium Chloride () 250 mls @ 15 mls/hr IV .[id number] PRN PRN Reason: Saline Flush Levothyroxine Sodium (Levothyroxine 175 Mcg Tablet) 175 mcg PO DAILY@0600 [facility] Last Admin: 01/26/20 06:45 Dose: 175 mcg Documented by: Melatonin (Melatonin 3 Mg Tablet) 3 mg PO QHS PRN PRN PRN Reason: INSOMNIA Last Admin: 01/21/20 21:56 Dose: 3 mg Documented by: Ondansetron HCl (Ondansetron 4 Mg/2 Ml Vial) 4 mg IV Q8H PRN PRN PRN Reason: NAUSEA/VOMITING Last Admin: 01/20/20 06:30 Dose: 4 mg Documented by: Pantoprazole Sodium (Pantoprazole Sodium 20 Mg Tablet) 20 mg PO DAILY [facility] Last Admin: 01/26/20 08:28 Dose: 20 mg Documented by: Sodium Chloride (0.9% Saline Lock 10 Ml Syringe) 10 - 40 ml IV UD PRN PRN Reason: SALINE FLUSH Last Admin: 01/26/20 08:28 Dose: 10 ml Documented by: Medical Necessity - Tobacco Use Smoking Status: Former smoker Assessment/Plan All Active Problems (Last Reviewed 01/16/20 @ 13:21 by Emmanuel GALLOWAY, PA) COVID-19 (Acute) Contact with or suspected exposure to other viral communicable disease (Acute) RECOMMENDATIONS: 1. Wean supplemental oxygen to maintain saturations at or above 90%. 2. Continue Decadron to complete a 10-day treatment course. 3. Encourage incentive spirometer use and mobilize patient as tolerated. 4. Continue IV Lasix as tolerated by hemodynamics and renal function. IMPRESSIONS: 1. Acute hypoxemic respiratory failure secondary to COVID-19 pneumonia Plan to continue current supportive measures with supplemental oxygen to maintain saturations at or above 90%. The patient has already received convalescent plasma and completed a treatment course of remdesivir. She will be continued on Decadron to complete a 10-day treatment course. Patient remains on diuretic therapy. Patient is reporting leg cramps overnight, but electrolytes appear to be appropriate at this time. We will continue to follow. Encourage incentive spirometer use and mobilize patient as tolerated. 2. Depression/anxiety/GERD/hypothyroidism/obesity Complicates care, management, recovery and prognosis. Continue home medications as indicated. Inpatient E&M: 22052 [facility] Hosp L2
--- NOTE | 2020-01-26 17:32 | PN_ITS ---
Patient Problems: Active and Suspected Problems (Last Reviewed 01/16/20 @ 13:21 by Emmanuel GALLOWAY, PA) COVID-19 (Acute) Reason for Visit: COVID 19 Subjective: Breathing well. Vitals/I&O's: Vital Signs Temp Pulse Resp BP Pulse Ox 36.8 C 81 24 H 138/73 H 95 01/26/20 14:15 01/26/20 15:16 01/26/20 15:16 01/26/20 14:15 01/26/20 15:16 Oxygen Flow Rate (L/min) 7 Oxygen Delivery Method Nasal Cannula Weight: 89.5 kg Body Mass Index (BMI) 30.5 Intake and Output for Last 24 Hours 01/24/20 01/25/20 01/26/20 23:59 23:59 23:59 Intake Total 400 / 400 200 / 200 Output Total 1700 / 1700 800 / 800 5900 / 5900 Balance -1300 / -1300 -800 / -800 -5700 / -5700 General: Alert, No apparent distress, - - on high flow oxygen. no respiratory distress. no conversationaly dyspnea Neck: No Nodes, Thyroid Normal Size and Texture Lungs: Clear to auscultation, Normal air movement, No rhonchi, No wheeze, No rales Cardiovascular: Regular rate, Regular Rhythm, Normal S1, Normal S2, No murmurs Abdomen: Bowel Sounds Present, Soft, Non Tender, Non-Distended, No Hepato- splenomegaly Extremities: No edema, No Calf Tenderness Skin: No rashes, No breakdown Psych/Mental Status: Normal Affect, Appropriate Microbiology Past 72 Hours 01/18/20 14:05 Blood Culture (Wb) #2 - Right Forearm Blood Culture - Final No growth in 5 days. 01/18/20 14:05 Blood Culture (Wb) - Left Hand Blood Culture - Final No growth in 5 days. Laboratory Results 01/26/20 04:55: WBC 13.4 H, RBC 5.25, Hgb 14.6, Hct 45.1, MCV 85.9, MCH 27.8, MCHC 32.4, RDW Std Deviation 38.4, RDW Coeff of Shirlene 12.2, Plt Count 443, MPV 10.3, Immature Gran % (Auto) 1.300 H, Neut % (Auto) 82.6 H, Lymph % (Auto) 7.8 L , [place] % (Auto) 7.8, Eos % (Auto) 0.4, Baso % (Auto) 0.1, Absolute Neuts (auto) 11.1 H, Absolute Lymphs (auto) 1.05, Nucleated RBC % 0 01/26/20 04:55: Sodium 135 L, Potassium 3.8, Chloride 93 L, Carbon Dioxide 33.0 H, Anion Gap 9, BUN 30 H, Creatinine 0.84, Estim Creat Clear Calc 59.74, Est GFR (MDRD) Af Amer 86, Est GFR (MDRD) Non-Af 71, BUN/Creatinine Ratio 35.6 H, Glucose 120 H, Calcium 9.7, Total Bilirubin 0.50, AST 18, ALT 18, Alkaline Phosphatase 84, Total Protein 7.1, Albumin 2.9 L, Globulin 4.2, Albumin/Globulin Ratio 0.7 L Current Medications Acetaminophen (Acetaminophen 325 Mg Tablet) 650 mg PO Q6H PRN PRN PRN Reason: Pain Score 1-10/Temp > 100.7 F Last Admin: 01/26/20 00:42 Dose: 650 mg Documented by: Albuterol/Ipratropium (Ipratropium/Albuterol Sulfate 3 Ml Ampul.Neb) 3 ml INHALATION Q4HWA.RT [facility] Last Admin: 01/26/20 15:16 Dose: 3 ml Documented by: Dexamethasone (Dexamethasone 4 Mg Tablet) 6 mg PO DAILY [facility] Stop: 01/27/20 10:01 Last Admin: 01/26/20 08:27 Dose: 6 mg Documented by: Duloxetine HCl (Duloxetine Hcl 60 Mg Capsule) 60 mg PO QHS [facility] Last Admin: 01/25/20 20:30 Dose: 60 mg Documented by: Enoxaparin Sodium (Enoxaparin 40 Mg/0.4 Ml Syringe) 40 mg SC Q12 [facility] Last Admin: 01/26/20 08:26 Dose: 40 mg Documented by: Furosemide (Furosemide 40 Mg/4 Ml Vial) 40 mg IV BID@1000,1700 [facility] Last Admin: 01/26/20 16:59 Dose: 40 mg Documented by: Guaifenesin (Guaifenesin 10 Ml Udc (200mg/10ml)) 10 ml PO Q4H PRN PRN PRN Reason: COUGH Last Admin: 01/24/20 11:41 Dose: 10 ml Documented by: Sodium Chloride () 500 mls @ 15 mls/hr IV PRN PRN PRN Reason: Blood Transfusion Last Infusion: 01/23/20 12:43 Dose: 0 mls/hr Documented by: Sodium Chloride () 250 mls @ 15 mls/hr IV .[id number] PRN PRN Reason: Saline Flush Levothyroxine Sodium (Levothyroxine 175 Mcg Tablet) 175 mcg PO DAILY@0600 [facility] Last Admin: 01/26/20 06:45 Dose: 175 mcg Documented by: Melatonin (Melatonin 3 Mg Tablet) 3 mg PO QHS PRN PRN PRN Reason: INSOMNIA Last Admin: 01/21/20 21:56 Dose: 3 mg Documented by: Ondansetron HCl (Ondansetron 4 Mg/2 Ml Vial) 4 mg IV Q8H PRN PRN PRN Reason: NAUSEA/VOMITING Last Admin: 01/20/20 06:30 Dose: 4 mg Documented by: Pantoprazole Sodium (Pantoprazole Sodium 20 Mg Tablet) 20 mg PO DAILY [facility] Last Admin: 01/26/20 08:28 Dose: 20 mg Documented by: Sodium Chloride (0.9% Saline Lock 10 Ml Syringe) 10 - 40 ml IV UD PRN PRN Reason: SALINE FLUSH Last Admin: 01/26/20 16:59 Dose: 10 ml Documented by: STROKE Vital Signs/Narrative: Vital Signs Temp Pulse Resp BP Pulse Ox 01/26/20 15:16 81 24 H 95 01/26/20 14:15 36.8 C 81 18 138/73 H 95 Medical Necessity - Tobacco Use Smoking Status: Former smoker Assessment/Plan All Active Problems (Last Reviewed 01/16/20 @ 13:21 by Emmanuel GALLOWAY, PA) COVID-19 (Acute) Contact with or suspected exposure to other viral communicable disease (Acute) 1. acute COVID 19 * on dexa * completed remdesivir * wean oxygen as tolerated * on furoxemide 2. VTE prophylaxis: enoxaparin. Inpatient E&M: 34612 Subs Hosp L2
--- NOTE | 2020-01-26 19:43 | CPS ---
reduced O2 to 6 lpm NC
[2020-01-26] MEDS: DULoxetine Hcl 60 MG Capsule PO (21:29)
[2020-01-27] VITALS (10 sets, daily range): BP systolic 115–134; BP diastolic 61–90; PULSE 72–87; RESP 16–20; TEMP 36.4–36.9; O2SAT 93–97
[2020-01-27] MEDS: Acetaminophen 325 MG Tablet 650 MG PO (04:22)
[2020-01-27] MEDS: Levothyroxine 175 MCG Tablet PO (04:22)
[2020-01-27] MEDS: Ipratropium/Albuterol Sulfate 3 ML AMPUL.NEB INHALATION ×4 (07:07→19:30)
[2020-01-27] MEDS: dexAMETHasone 4 MG Tablet 6 MG PO (10:17)
[2020-01-27] MEDS: Furosemide 40 MG/4 ML Vial IV ×2 (10:17→17:04)
[2020-01-27] MEDS: Pantoprazole Sodium 20 MG Tablet PO (10:17)
[2020-01-27] MEDS: Enoxaparin 40 MG/0.4 ML Syringe SC ×2 (10:18→20:01)
[2020-01-27] MEDS: 0.9% Saline Lock 10 ML Syringe IV ×2 (10:18→17:04)
--- NOTE | 2020-01-27 13:29 | PCM.PN.HOSP ---
Patient Problems: Active and Suspected Problems (Last Reviewed 01/16/20 @ 13:21 by Emmanuel GALLOWAY, PA) COVID-19 (Acute) Reason for Visit: COVID 19 Subjective: Breathing better. Tolerating decreased oxygen. Vitals/I&O's: Vital Signs Temp Pulse Resp BP Pulse Ox 36.7 C 75 18 125/61 H 94 01/27/20 10:08 01/27/20 10:42 01/27/20 10:42 01/27/20 10:08 01/27/20 10:08 Oxygen Flow Rate (L/min) 6 Oxygen Delivery Method Nasal Cannula Weight: 88.1 kg Body Mass Index (BMI) 30.5 Intake and Output for Last 24 Hours 01/25/20 01/26/20 01/27/20 23:59 23:59 23:59 Intake Total 200 / 200 300 / 300 Output Total 800 / 800 6500 / 6700 450 / 450 Balance -800 / -800 -6300 / -6500 -150 / -150 General: Alert, No apparent distress HEENT: Atraumatic, Normocephalic Oral: Moist Mucosa, No Gingival or Mucosal Lesions/ Ulcerations Neck: No Nodes, Thyroid Normal Size and Texture Lungs: Clear to auscultation, Normal air movement, No rhonchi, No wheeze, No rales Cardiovascular: Regular rate, Regular Rhythm, Normal S1, Normal S2, No murmurs Abdomen: Bowel Sounds Present, Soft, Non Tender, Non-Distended, No Hepato-splenomegaly Extremities: No edema, No Calf Tenderness Psych/Mental Status: Normal Affect, Appropriate Current Medications Acetaminophen (Acetaminophen 325 Mg Tablet) 650 mg PO Q6H PRN PRN PRN Reason: Pain Score 1-10/Temp > 100.7 F Last Admin: 01/27/20 04:22 Dose: 650 mg Documented by: Albuterol/Ipratropium (Ipratropium/Albuterol Sulfate 3 Ml Ampul.Neb) 3 ml INHALATION Q4HWA.RT [facility] Last Admin: 01/27/20 10:40 Dose: 3 ml Documented by: Duloxetine HCl (Duloxetine Hcl 60 Mg Capsule) 60 mg PO QHS [facility] Last Admin: 01/26/20 21:29 Dose: 60 mg Documented by: Enoxaparin Sodium (Enoxaparin 40 Mg/0.4 Ml Syringe) 40 mg SC Q12 [facility] Last Admin: 01/27/20 10:18 Dose: 40 mg Documented by: Furosemide (Furosemide 40 Mg/4 Ml Vial) 40 mg IV BID@1000,1700 [facility] Last Admin: 01/27/20 10:17 Dose: 40 mg Documented by: Guaifenesin (Guaifenesin 10 Ml Udc (200mg/10ml)) 10 ml PO Q4H PRN PRN PRN Reason: COUGH Last Admin: 01/24/20 11:41 Dose: 10 ml Documented by: Sodium Chloride () 500 mls @ 15 mls/hr IV PRN PRN PRN Reason: Blood Transfusion Last Infusion: 01/23/20 12:43 Dose: 0 mls/hr Documented by: Sodium Chloride () 250 mls @ 15 mls/hr IV .[id number] PRN PRN Reason: Saline Flush Levothyroxine Sodium (Levothyroxine 175 Mcg Tablet) 175 mcg PO DAILY@0600 [facility] Last Admin: 01/27/20 04:22 Dose: 175 mcg Documented by: Melatonin (Melatonin 3 Mg Tablet) 3 mg PO QHS PRN PRN PRN Reason: INSOMNIA Last Admin: 01/21/20 21:56 Dose: 3 mg Documented by: Ondansetron HCl (Ondansetron 4 Mg/2 Ml Vial) 4 mg IV Q8H PRN PRN PRN Reason: NAUSEA/VOMITING Last Admin: 01/20/20 06:30 Dose: 4 mg Documented by: Pantoprazole Sodium (Pantoprazole Sodium 20 Mg Tablet) 20 mg PO DAILY [facility] Last Admin: 01/27/20 10:17 Dose: 20 mg Documented by: Sodium Chloride (0.9% Saline Lock 10 Ml Syringe) 10 - 40 ml IV UD PRN PRN Reason: SALINE FLUSH Last Admin: 01/27/20 10:18 Dose: 10 ml Documented by: STROKE Vital Signs/Narrative: Vital Signs Temp Pulse Resp BP Pulse Ox 01/27/20 10:42 75 18 01/27/20 10:08 36.7 C 75 20 H 125/61 H 94 Medical Necessity - Tobacco Use Smoking Status: Former smoker Assessment/Plan All Active Problems (Last Reviewed 01/16/20 @ 13:21 by Emmanuel GALLOWAY, PA) COVID-19 (Acute) Contact with or suspected exposure to other viral communicable disease (Acute) 1. acute COVID 19 completed dexa completed remdesivir wean oxygen as tolerated on furosemide 2. VTE prophylaxis: enoxaparin. Inpatient E&M: 49747 Subs Hosp L2
--- NOTE | 2020-01-27 15:10 | PCM.PN.PUL ---
Patient Problems: Active and Suspected Problems (Last Reviewed 01/16/20 @ 13:21 by Emmanuel GALLOWAY, PA) COVID-19 (Acute) Subjective: Patient did well overnight. Patient states she was able to get better rest compared to previous. Patient is still requiring increased nasal cannula to maintain saturations, but overall is improving. Patient has not had any muscle cramping today. - Physical Exam Vitals/I&O's: Vital Signs Temp Pulse Resp BP Pulse Ox 36.7 C 81 16 125/61 H 96 01/27/20 10:08 01/27/20 14:58 01/27/20 14:58 01/27/20 10:08 01/27/20 15:03 Oxygen Flow Rate (L/min) 5 Oxygen Delivery Method Nasal Cannula Weight: 88.1 kg Body Mass Index (BMI) 30.5 Intake and Output for Last 24 Hours 01/25/20 01/26/20 01/27/20 23:59 23:59 23:59 Intake Total 200 / 200 300 / 300 Output Total 800 / 800 6500 / 6700 450 / 450 Balance -800 / -800 -6300 / -6500 -150 / -150 General: Alert, Oriented x3, Cooperative, No apparent distress, - - No conversational dyspnea. Obese. HEENT: Atraumatic, PERRLA, EOMI, Normocephalic, - - No scleral icterus or injection noted Oral: Moist Mucosa, No Gingival or Mucosal Lesions/ Ulcerations Neck: Supple, No JVD, No Nodes, Trachea Midline Lungs: No rhonchi, No wheeze, No rales, Diminished, - - Symmetric expansion. Fair effort. Cardiovascular: Regular rate, Regular Rhythm, Normal S1, Normal S2, No murmurs, No rub noted, No Gallop Abdomen: Bowel Sounds Present, Soft, Non Tender, Non-Distended, Obese Extremities: No cyanosis, Edema - Trace lower extremity Skin: - - No change from previous Musculoskeletal: No Tenderness to Palpation of Joints or Extremities Lymphatic: No Cervical, Supraclavicular, or Inguinal Adenopathy Neurological: Cranial nerves II-XII grossly intact, Neuro grossly intact, Motor Exam 5/5 strength throughout Psych/Mental Status: Normal Affect, Appropriate Current Medications Acetaminophen (Acetaminophen 325 Mg Tablet) 650 mg PO Q6H PRN PRN PRN Reason: Pain Score 1-10/Temp > 100.7 F Last Admin: 01/27/20 04:22 Dose: 650 mg Documented by: Albuterol/Ipratropium (Ipratropium/Albuterol Sulfate 3 Ml Ampul.Neb) 3 ml INHALATION Q4HWA.RT [facility] Last Admin: 01/27/20 14:58 Dose: 3 ml Documented by: Duloxetine HCl (Duloxetine Hcl 60 Mg Capsule) 60 mg PO QHS [facility] Last Admin: 01/26/20 21:29 Dose: 60 mg Documented by: Enoxaparin Sodium (Enoxaparin 40 Mg/0.4 Ml Syringe) 40 mg SC Q12 [facility] Last Admin: 01/27/20 10:18 Dose: 40 mg Documented by: Furosemide (Furosemide 40 Mg/4 Ml Vial) 40 mg IV BID@1000,1700 [facility] Last Admin: 01/27/20 10:17 Dose: 40 mg Documented by: Guaifenesin (Guaifenesin 10 Ml Udc (200mg/10ml)) 10 ml PO Q4H PRN PRN PRN Reason: COUGH Last Admin: 01/24/20 11:41 Dose: 10 ml Documented by: Sodium Chloride () 500 mls @ 15 mls/hr IV PRN PRN PRN Reason: Blood Transfusion Last Infusion: 01/23/20 12:43 Dose: 0 mls/hr Documented by: Sodium Chloride () 250 mls @ 15 mls/hr IV .[id number] PRN PRN Reason: Saline Flush Levothyroxine Sodium (Levothyroxine 175 Mcg Tablet) 175 mcg PO DAILY@0600 [facility] Last Admin: 01/27/20 04:22 Dose: 175 mcg Documented by: Melatonin (Melatonin 3 Mg Tablet) 3 mg PO QHS PRN PRN PRN Reason: INSOMNIA Last Admin: 01/21/20 21:56 Dose: 3 mg Documented by: Ondansetron HCl (Ondansetron 4 Mg/2 Ml Vial) 4 mg IV Q8H PRN PRN PRN Reason: NAUSEA/VOMITING Last Admin: 01/20/20 06:30 Dose: 4 mg Documented by: Pantoprazole Sodium (Pantoprazole Sodium 20 Mg Tablet) 20 mg PO DAILY [facility] Last Admin: 01/27/20 10:17 Dose: 20 mg Documented by: Sodium Chloride (0.9% Saline Lock 10 Ml Syringe) 10 - 40 ml IV UD PRN PRN Reason: SALINE FLUSH Last Admin: 01/27/20 10:18 Dose: 10 ml Documented by: Medical Necessity - Tobacco Use Smoking Status: Former smoker Assessment/Plan All Active Problems (Last Reviewed 01/16/20 @ 13:21 by Emmanuel GALLOWAY, PA) COVID-19 (Acute) Contact with or suspected exposure to other viral communicable disease (Acute) RECOMMENDATIONS: 1. Wean supplemental oxygen to maintain saturations at or above 90%. 2. Completed Decadron and remdesivir 3. Encourage incentive spirometer use and mobilize patient as tolerated. 4. Continue IV Lasix as tolerated by hemodynamics and renal function. IMPRESSIONS: 1. Acute hypoxemic respiratory failure secondary to COVID-19 pneumonia Plan to continue current supportive measures with supplemental oxygen to maintain saturations at or above 90%. The patient has already received convalescent plasma and completed a treatment course of remdesivir and Decadron. Patient remains on diuretic therapy. Patient is reporting leg cramps overnight, but electrolytes were appropriate yesterday. We will continue to follow. Encourage incentive spirometer use and mobilize patient as tolerated. We will check electrolytes tomorrow given continued diuresis 2. Depression/anxiety/GERD/hypothyroidism/obesity Complicates care, management, recovery and prognosis. Continue home medications as indicated. Inpatient E&M: 85254 Subs Hosp L2
--- NOTE | 2020-01-27 18:31 | PCS.PANDOC ---
PANDEMIC DOCUMENTATION INITIATED: Date: 01/26 Time: 1829
[2020-01-27] MEDS: DULoxetine Hcl 60 MG Capsule PO (20:01)
[2020-01-27] MEDS: Sodium Chloride 0.65% 1 SPRAY SPRAY.BTL 2 SPRAY NASAL (21:50)
[2020-01-28] VITALS (8 sets, daily range): BP systolic 123–141; BP diastolic 70–81; PULSE 72–86; RESP 18–20; TEMP 36.7–36.8; O2SAT 86–97
[2020-01-28] MEDS: Acetaminophen 325 MG Tablet 650 MG PO (02:09)
[2020-01-28] MEDS: Ipratropium/Albuterol Sulfate 3 ML AMPUL.NEB INHALATION (07:13)
[2020-01-28] MEDS: Enoxaparin 40 MG/0.4 ML Syringe SC (07:47)
[2020-01-28] MEDS: Pantoprazole Sodium 20 MG Tablet PO (07:47)
[2020-01-28] MEDS: Levothyroxine 175 MCG Tablet PO (07:48)
[2020-01-28] MEDS: 0.9% Saline Lock 10 ML Syringe IV (07:49)
[2020-01-28] MEDS: Furosemide 40 MG/4 ML Vial IV (07:49)
[2020-01-28 08:11] LABS: Anion Gap 7 (5-15); BUN 36 mg/dL (7-18); BUN/Creat Ratio 41.8 RATIO (10-20); Calcium,Total 9.2 mg/dL (8.5-10.1); Chloride 89 mmol/L (98-107); Creatinine, Serum 0.86 mg/dL (0.55-1.02); EST Glomerular Filtration Rate 69 mL/min (>60); Est Glom Filt Rate - Afr Amer 83 mL/min (>60); Estimated Creatinine Clearance 58.35 ml/min; Glucose 105 mg/dL (74-106); Potassium 3.8 mmol/L (3.5-5.1); Sodium Level 133 mmol/L (136-145)
--- NOTE | 2020-01-28 09:01 | PN_ITS ---
Patient Problems: Active and Suspected Problems (Last Reviewed 01/16/20 @ 13:21 by Emmanuel GALLOWAY, PA) COVID-19 (Acute) Subjective: Patient did well overnight. Patient does report better sleep overnight. Patient continues to have a nonproductive cough. Mild headache has been reported. No fevers were noted. - Physical Exam Vitals/I&O's: Vital Signs Temp Pulse Resp BP Pulse Ox 36.8 C 72 20 H 131/75 H 95 01/28/20 07:42 01/28/20 07:42 01/28/20 07:42 01/28/20 07:42 01/28/20 07:42 Oxygen Flow Rate (L/min) 4 Oxygen Delivery Method Nasal Cannula Weight: 87.4 kg Body Mass Index (BMI) 30.5 Intake and Output for Last 24 Hours 01/26/20 01/27/20 01/28/20 23:59 23:59 23:59 Intake Total 200 / 200 400 / 400 Output Total 6500 / 6700 1050 / 1050 350 / 350 Balance -6300 / -6500 -650 / -650 -350 / -350 General: Alert, Oriented x3, Cooperative, No apparent distress, - - Obese. Speaking in full sentences HEENT: Atraumatic, PERRLA, EOMI, Normocephalic, - - Slight scleral injection Oral: Moist Mucosa, No Gingival or Mucosal Lesions/ Ulcerations, - - Crowded posterior pharynx Neck: Supple, No Nodes, Trachea Midline Lungs: No rhonchi, No wheeze, No rales, Diminished Cardiovascular: Regular Rhythm, Normal S1, Normal S2, No murmurs, No rub noted, No Gallop Abdomen: Bowel Sounds Present, Soft, Non Tender, Non-Distended, Obese Extremities: No clubbing, No cyanosis, Edema Skin: - - No change compared to previous Musculoskeletal: No Tenderness to Palpation of Joints or Extremities Lymphatic: No Cervical, Supraclavicular, or Inguinal Adenopathy Neurological: Cranial nerves II-XII grossly intact, Neuro grossly intact, Motor Exam 5/5 strength throughout Psych/Mental Status: Alert and oriented to time, place, person, mood and affect Laboratory Results 01/28/20 06:50: Sodium 133 L, Potassium 3.8, Chloride 89 L, Carbon Dioxide 37.0 H, Anion Gap 7, BUN 36 H, Creatinine 0.86, Estim Creat Clear Calc 58.35, Est GFR (MDRD) Af Amer 83, Est GFR (MDRD) Non-Af 69, BUN/Creatinine Ratio 41.8 H, Glucose 105, Calcium 9.2 Current Medications Acetaminophen (Acetaminophen 325 Mg Tablet) 650 mg PO Q6H PRN PRN PRN Reason: Pain Score 1-10/Temp > 100.7 F Last Admin: 01/28/20 02:09 Dose: 650 mg Documented by: Albuterol/Ipratropium (Ipratropium/Albuterol Sulfate 3 Ml Ampul.Neb) 3 ml INHALATION Q4HWA.RT [facility] Last Admin: 01/28/20 07:13 Dose: 3 ml Documented by: Duloxetine HCl (Duloxetine Hcl 60 Mg Capsule) 60 mg PO QHS [facility] Last Admin: 01/27/20 20:01 Dose: 60 mg Documented by: Enoxaparin Sodium (Enoxaparin 40 Mg/0.4 Ml Syringe) 40 mg SC Q12 [facility] Last Admin: 01/28/20 07:47 Dose: 40 mg Documented by: Furosemide (Furosemide 40 Mg/4 Ml Vial) 40 mg IV BID@1000,1700 [facility] Last Admin: 01/28/20 07:49 Dose: 40 mg Documented by: Guaifenesin (Guaifenesin 10 Ml Udc (200mg/10ml)) 10 ml PO Q4H PRN PRN PRN Reason: COUGH Last Admin: 01/24/20 11:41 Dose: 10 ml Documented by: Sodium Chloride () 500 mls @ 15 mls/hr IV PRN PRN PRN Reason: Blood Transfusion Last Infusion: 01/23/20 12:43 Dose: 0 mls/hr Documented by: Sodium Chloride () 250 mls @ 15 mls/hr IV .[id number] PRN PRN Reason: Saline Flush Levothyroxine Sodium (Levothyroxine 175 Mcg Tablet) 175 mcg PO DAILY [facility] Last Admin: 01/28/20 07:48 Dose: 175 mcg Documented by: Melatonin (Melatonin 3 Mg Tablet) 3 mg PO QHS PRN PRN PRN Reason: INSOMNIA Last Admin: 01/21/20 21:56 Dose: 3 mg Documented by: Ondansetron HCl (Ondansetron 4 Mg/2 Ml Vial) 4 mg IV Q8H PRN PRN PRN Reason: NAUSEA/VOMITING Last Admin: 01/20/20 06:30 Dose: 4 mg Documented by: Pantoprazole Sodium (Pantoprazole Sodium 20 Mg Tablet) 20 mg PO DAILY [facility] Last Admin: 01/28/20 07:47 Dose: 20 mg Documented by: Sodium Chloride (0.9% Saline Lock 10 Ml Syringe) 10 - 40 ml IV UD PRN PRN Reason: SALINE FLUSH Last Admin: 01/28/20 07:49 Dose: 10 ml Documented by: Sodium Chloride (Sodium Chloride 0.65% 1 [place].Btl) 2 spray NASAL Q4H PRN PRN Reason: NASAL DRYNESS Last Admin: 01/27/20 21:50 Dose: 2 spray Documented by: Medical Necessity - Tobacco Use Smoking Status: Former smoker Assessment/Plan All Active Problems (Last Reviewed 01/16/20 @ 13:21 by Emmanuel GALLOWAY, PA) COVID-19 (Acute) Contact with or suspected exposure to other viral communicable disease (Acute) RECOMMENDATIONS: 1. Wean supplemental oxygen to maintain saturations at or above 90%. 2. Completed Decadron and remdesivir 3. Encourage incentive spirometer use and mobilize patient as tolerated. 4. Continue IV Lasix as tolerated by hemodynamics and renal function. 5. Obtain walking oximetry IMPRESSIONS: 1. Acute hypoxemic respiratory failure secondary to COVID-19 pneumonia Plan to continue current supportive measures with supplemental oxygen to maintain saturations at or above 90%. The patient has already received convalescent plasma and completed a treatment course of remdesivir and Decadron. Patient remains on diuretic therapy and is tolerating per morning labs. Obtain walking oximetry. Possibly able to be discharged if tolerates ambulation on 6 L or less. Patient will need to follow-up with our nurse practitioner in 4 weeks to evaluate for oxygen needs. Encourage incentive spirometer use and mobilize patient as tolerated. We will check electrolytes tomorrow given continued diuresis 2. Depression/anxiety/GERD/hypothyroidism/obesity Complicates care, management, recovery and prognosis. Continue home medications as indicated. Inpatient E&M: 84797 [facility] Hosp L2
--- NOTE | 2020-01-28 11:00 | NURSING ---
pt ARGUELLES with washing her arms/stomach. pt took less than 10 steps- continues with pursed lip breathing- states she is having chest tightness and needs to sit down. pt states feels like cant catch her breath- resp rate 24-26 with pursed lip breathing continues- pt sits on side of bed, reinforces to herself her oxygen level and reassures herself that she is getting air in. bp 136/82 at that time, pulse 97. after few minutes of recovery time, spo2 96% on 4l nasal cannula. pt contiues with pursed lip breathing, rr of 20-22.
--- NOTE | 2020-01-28 11:06 | NURSING ---
pt states chest tightness went away after a few minutes denies any currently.
--- NOTE | 2020-01-28 13:33 | CT_ITS ---
STUDY: CTA CHEST REASON FOR EXAM: Female, 69 years old. SOB/COUGH/DYSPNEA RADIATION DOSAGE (If Supplied By Facility): CTDIvol = ( 14.67 ) mGy, DLP = ( 622.51 ) mGycm TECHNIQUE: The examination was performed with the intravenous administration of IV 100ML ISOVUE 370. Post-processing of the angiographic images was performed, with multiplanar reformation and 3D reconstruction. Individualized dose optimization techniques were used for this CT. COMPARISON: Comparison is made with prior study dated 01/18/2020. FINDINGS: Normal enhancement of the main pulmonary artery and right and left pulmonary arteries. Normal enhancement of the bilateral peripheral pulmonary arteries. There is no demonstrated pulmonary embolism. Normal thoracic aorta and visualized great vessels. There is no demonstrated aortic dissection. Normal heart and pericardium. Normal mediastinum. Normal hilar regions. Normal visualized trachea and bronchi. The lungs are well expanded. Since prior study, there has been progressive infiltrates and groundglass appearance of both lungs worse in the lower lobes. The previously seen small nodular densities in the lower lobes are not well seen at this time due to the overlying infiltration. Normal pleura. Normal chest wall structures. There are degenerative changes of thoracic spine. Normal visualized upper abdomen. CT/CTA Chest W/WO Contrast IMPRESSION: Progressive bilateral pulmonary infiltrates and groundglass appearance. No evidence of pulmonary embolism. Electronically Signed: Rudi Abebe, at 14:58 EST , Service support ,
[2020-01-28] MEDS: guaiFENesin 10 ML UDC (200MG/10ML) PO (15:22)
--- NOTE | 2020-01-28 16:05 | PCM.DC ---
- Discharge Diagnoses Current Active Problems: Current Active and Chronic Problems (Last Reviewed 01/16/20 @ 13:21 by Emmanuel GALLOWAY, PA) COVID-19 (Acute) You will use the following diet at home:: Regular Your food should be the consistency of: Regular Your liquids should be the consistency of: Regular/Thin Call your doctor if you observe: Fever of 101 or Higher, Shortness of breath Additional Instructions: Self isolate for at least 21 days since symptoms began (01/17/2020) AND at least one day (24 hours) have passed since resolution of fever without the use of fever-reducing agents AND improvement of symptoms (e.g., cough, shortness of breath) When around people in the same room, wear a face mask. Individuals also in the room should wear a mask. If possible, use a different bathroom and bedroom. Perform adequate hand hygiene. Avoid sharing dishes, glasses, etc. Family members with close contact with you and/or postive for COVID-19 should follow these instructions. Allergies/Adverse Reactions: Allergies butorphanol [From Stadol] Allergy (Unknown, Verified 01/18/20 13:44) unknown codeine Allergy (Unknown, Verified 01/18/20 13:44) unknown morphine Allergy (Unknown, Verified 01/18/20 13:44) unknown Medications to take at Discharge Albuterol Sulfate [Albuterol Sulfate HFA] 1 puff IH PRN PRN 01/18/20 Duloxetine Hcl [Cymbalta] 60 mg PO QHS 01/18/20 Esomeprazole Mag Trihydrate [Nexium] 20 mg PO DAILY 01/18/20 Levothyroxine [Synthroid] 175 mcg PO DAILY 01/18/20 Furosemide 40 mg PO DAILY #5 tab 01/28/20 The following prescriptions were given: Furosemide 40 mg PO DAILY #5 tab Transmission Status: Pending to [facility]/pharmacy #[id number] Primary Care Physician: Herbert Doctor,Out of [NON-STAFF] - Within 2 Weeks () Test Results: Test results from this visit will be discussed in further detail at your follow-up appointment, if applicable. Please Follow Up With: Dhruv Pulmonology When: 4 weeks Proposed Discharge Date: 01/28/20
--- NOTE | 2020-01-28 16:07 | DS.PCM_ITS ---
Discharge Date and Diagnosis - Problem List Patient Problems: Active and Suspected Problems (Last Reviewed 01/16/20 @ 13:21 by NILESH Wall) COVID-19 (Acute) Date of Admission: 01/18/20 Date of Discharge: 01/28/20 - Primary Discharge Diagnosis Acute Problems: Active Problems (Last Reviewed 01/16/20 @ 13:21 by NILESH Wall) COVID-19 (Acute) Hospital Course and Treatment Imaging Results: 01/28/20 13:33 CTA Chest W/WO Contrast [CT] Urgent Clinical Impression(s) from Imaging Studies Chest X-Ray 01/18/20 13:53 IMPRESSION: No airspace consolidation or pleural effusion. Electronically Signed: Eduin Tinsley MD (Brooks) at 14:49 EST , Service support , Chest CTA 01/18/20 14:37 Chest CTA 01/28/20 13:33 IMPRESSION: Progressive bilateral pulmonary infiltrates and groundglass appearance. No evidence of pulmonary embolism. Electronically Signed: Rudi Abebe, at 14:58 EST , Service support , ANA [facility] pulm Operations: None Summary of Care Provided: The patient is a 69 year old F Satya with shortness of breath. Began about a week prior to arrival. Though on further questioning is seem to began on the 16 January. Patient had a CAT scan that showed bilateral groundglass opacities. Patient was positive for COVID-19 antigen. Patient's received d examethasone as well as remdesivir. Patient eventually started to improve and today was on 4 L. Despite that today, patient was having some right-sided chest pain. Concern was for pulmonary emboli. CTA was repeated did not show any evidence of any pulmonary bullae but did show progression of the infiltrates. Discussed with the patient about the CAT scan findings that did show progression compared to but overall she is better. I told her that not necessary for her to stay here in the hospital any further. Patient does require oxygen at 4L continuous as she was 86% on room air at rest. Patient advised of risk for possible secondary pneumonia with increasing fevers and increasing shortness of breath. Advised patient that she is to anticipate a prolonged recovery given the extent of the nature of her disease. Additionally, regards to the patient's chest pain today, is felt to be musculoskeletal as it was reproducible. Patient advised that with costochondritis that may take a few weeks for that to resolve. Patient will receive a short course of furosemide. [] Patient Problems: Active and Suspected Problems (Last Reviewed 01/16/20 @ 13:21 by Emmanuel GALLOWAY, NILESH) COVID-19 (Acute) - Physical Exam Vitals/I&O's: Vital Signs Temp Pulse Resp BP Pulse Ox 36.8 C 72 20 H 123/78 H 96 01/28/20 15:15 01/28/20 15:15 01/28/20 15:15 01/28/20 15:15 01/28/20 15:15 Oxygen Flow Rate (L/min) [ 4 AMBULATION with Oxygen] Oxygen Flow Rate (L/min) 4 Oxygen Delivery Method Nasal Cannula Weight: 87.4 kg Body Mass Index (BMI) 30.5 Intake and Output for Last 24 Hours 01/26/20 01/27/20 01/28/20 23:59 23:59 23:59 Intake Total 200 / 200 400 / 400 Output Total 6500 / 6700 1050 / 1050 750 / 750 Balance -6300 / -6500 -650 / -650 -750 / -750 General: Alert, No apparent distress HEENT: Atraumatic, Normocephalic Neck: No Nodes, Thyroid Normal Size and Texture Lungs: Clear to auscultation, Normal air movement, No rhonchi, No wheeze, No rales Cardiovascular: Regular rate, Regular Rhythm, Normal S1, Normal S2, No murmurs Abdomen: Bowel Sounds Present, Soft, Non Tender, Non-Distended, No Hepato- splenomegaly Extremities: No edema, No Calf Tenderness Musculoskeletal: - - reproducible right sided chest pain. Laboratory Results 01/28/20 06:50: Sodium 133 L, Potassium 3.8, Chloride 89 L, Carbon Dioxide 37.0 H, Anion Gap 7, BUN 36 H, Creatinine 0.86, Estim Creat Clear Calc 58.35, Est GFR (MDRD) Af Amer 83, Est GFR (MDRD) Non-Af 69, BUN/Creatinine Ratio 41.8 H, Glucose 105, Calcium 9.2 Current Medications Acetaminophen (Acetaminophen 325 Mg Tablet) 650 mg PO Q6H PRN PRN PRN Reason: Pain Score 1-10/Temp > 100.7 F Last Admin: 01/28/20 02:09 Dose: 650 mg Documented by: Albuterol Sulfate (Albuterol 2.5 Mg/3 Ml Vial.Neb.) 2.5 mg INHALATION Q2H PRN PRN PRN Reason: SOB &/OR WHEEZING Duloxetine HCl (Duloxetine Hcl 60 Mg Capsule) 60 mg PO QHS [facility] Last Admin: 01/27/20 20:01 Dose: 60 mg Documented by: Enoxaparin Sodium (Enoxaparin 40 Mg/0.4 Ml Syringe) 40 mg SC Q12 [facility] Last Admin: 01/28/20 07:47 Dose: 40 mg Documented by: Furosemide (Furosemide 40 Mg/4 Ml Vial) 40 mg IV BID@1000,1700 [facility] Last Admin: 01/28/20 07:49 Dose: 40 mg Documented by: Guaifenesin (Guaifenesin 10 Ml Udc (200mg/10ml)) 10 ml PO Q4H PRN PRN PRN Reason: COUGH Last Admin: 01/28/20 15:22 Dose: 10 ml Documented by: Sodium Chloride () 500 mls @ 15 mls/hr IV PRN PRN PRN Reason: Blood Transfusion Last Infusion: 01/23/20 12:43 Dose: 0 mls/hr Documented by: Sodium Chloride () 250 mls @ 15 mls/hr IV .[id number] PRN PRN Reason: Saline Flush Levothyroxine Sodium (Levothyroxine 175 Mcg Tablet) 175 mcg PO DAILY [facility] Last Admin: 01/28/20 07:48 Dose: 175 mcg Documented by: Melatonin (Melatonin 3 Mg Tablet) 3 mg PO QHS PRN PRN PRN Reason: INSOMNIA Last Admin: 01/21/20 21:56 Dose: 3 mg Documented by: Ondansetron HCl (Ondansetron 4 Mg/2 Ml Vial) 4 mg IV Q8H PRN PRN PRN Reason: NAUSEA/VOMITING Last Admin: 01/20/20 06:30 Dose: 4 mg Documented by: Pantoprazole Sodium (Pantoprazole Sodium 20 Mg Tablet) 20 mg PO DAILY [facility] Last Admin: 01/28/20 07:47 Dose: 20 mg Documented by: Sodium Chloride (0.9% Saline Lock 10 Ml Syringe) 10 - 40 ml IV UD PRN PRN Reason: SALINE FLUSH Last Admin: 01/28/20 07:49 Dose: 10 ml Documented by: Sodium Chloride (Sodium Chloride 0.65% 1 [place].Btl) 2 spray NASAL Q4H PRN PRN Reason: NASAL DRYNESS Last Admin: 01/27/20 21:50 Dose: 2 spray Documented by: Discharge Diet: No Restrictions Call your doctor if you observe: Fever of 101 or Higher, Shortness of breath Home Medications: Medications to take at Discharge Albuterol Sulfate [Albuterol Sulfate HFA] 1 puff IH PRN PRN 01/18/20 Duloxetine Hcl [Cymbalta] 60 mg PO QHS 01/18/20 Esomeprazole Mag Trihydrate [Nexium] 20 mg PO DAILY 01/18/20 Levothyroxine [Synthroid] 175 mcg PO DAILY 01/18/20 Furosemide 40 mg PO DAILY #5 tab 01/28/20 Following Prescriptions Were Given to Patient: Furosemide 40 mg PO DAILY #5 tab Transmission Status: Pending to [facility]/pharmacy #[id number] Primary Care Physician: Herbert Doctor,Out of [NON-STAFF] - Within 2 Weeks () Please Follow Up With: Dhruv Pulmonology When: 4 weeks Disposition: Home Minutes spent on discharge:: 40 Patient Condition:: Fair Medical Necessity - Tobacco Use Smoking Status: Former smoker Meaningful Use Info Meaningful Use Diagnoses (Choose all that apply): None applicable Inpatient E&M: 23219 [facility] H[facility]
--- NOTE | 2020-01-28 16:45 | NURSING ---
RNCM DC Note: [id number]- Called [facility] [place] [phone], s/w Jennifer and confirmed received oxygen orders and is processing now. Will deliver portable tank to bedside and concentrator home. Called patient cell phone and s/w patient. Aware for DC home today and oxygen coordination. Asked this hand sign writer to s/w her dtr Beba. Called Dtr on listed cell- straight to and left a to call this hand sign writer back. Updated Primary nurse Zaynab and will f/u with patient dtr. No further RNCM needs identified at this time. Hero Garcia, GINGERCM
--- NOTE | 2020-01-28 17:35 | NURSING ---
pt daughter phoned in, states home oxygen will be delivered this pm. updated on discharge process- offered to go over discharge instructions with daughter while on the telephone d/t pt will be going to daughters house- daughter states she does not want them i have to get stuff ready for my mom. reinforced process for discharge process and pt being an active participant in the process/teaching/learning as well.
--- NOTE | 2020-01-29 13:49 | CASEMGMT ---
Addendum entered by Gaetano Alex 01/29/20 14:11: Call back received from daughter. She is stating that family physician is willing to follow for home health, however patient is struggling at home. GINGER CAN discussed placement for SNF and daughter feels this would be what patient needs, but would like to speak with her. GINGER CAN let her know if they cannot manage safely @ home, they would need to return to ER for patient's safety and have placement arranged. Daughter will call GINGER CAN back after speaking with her mother. Reagan BARRIOS Original Note: GINGER CAN Note: call received to case mgmt office by daughter that patient needs home health care. Call to [facility] to see if they can assist. Katarzyna @ [facility] updated that patient is from [place] and staying in [place] with her family. They can accept the patient for SN, PT/OT if her PCP will sign orders. Her PCP is Dr. Cantu in [place] -Call to patient. She states she is feeling improved this am, but is still weak. Yesterday she had difficulty getting to bathroom and struggled with activiity. GINGER CAN asked if she needed to go to SNF for rehab and care and patient states she would like to have HHC. Explained above and pt asked that I contact her daughter who is calling PCP in [place] to try and set up HHC. -Message left with daughter's cell phone explaining which agency will accept patient if her PCP is willing to sign for home care orders. Awaiting call back and referral will then be sent to [facility]. Reagan BARRIOS
--- NOTE | 2020-01-29 14:35 | CASEMGMT ---
GINGER CAN Note: call back received from patient's daughter who states her mother does need intermediate and is agreeable to return to ER for evaluation and placement. Discussed transportation through ambulance. Daughter stated if she waited until her came home, he could carry her to the car. GINGER CAN expressed concern that this was not a safe transport as she is also on oxygen. Recommended she contact 911 for transport but let them know it was not a life threatening emergency. Daughter is agreeable. Daughter has RN CM call back number if needed. Reagan FLOWERN RN ACM
--- NOTE | 2020-01-29 15:32 | CASEMGMT ---
Call received from Jasbir in [facility] Marketing department stating he received a call for pt's daughter requesting transportation be set up for her mom to the ED. This RN CM contacted pt's daughter and explained that the [facility] van transportation would not be an appropriate option. Discussed need for pt's daughter to call 911 for a squad to transfer her mom to the ED. Pt's daughter states her mom is unable to walk or tolerate activity due to SOB and desaturations. Pt's daughter expressed concerns about a possible bill for the transportation via squad and whether the designation would be an emergent or nonemergent transport. Explained to pt's daughter that if the patient is need of emergent care that this is the priority and calling 911 is appropriate. Also stated this RN CM cannot guarantee insurance payment of transport. Pt's daughter also states she would like her mom placed in a SNF. Assured pt's daughter that a SW will be in contact with her regarding this discharge plan. Tere Mancera RN CM
== END 2020-01-28 21:35 | disposition home or self-care (01) | DRG 177 ==
LOC: ED 14:31 → MS2 17:12
PROVIDERS: Internal Medicine Critical Care Medicine; Internal Medicine Infectious Disease; Student in an Organized Health Care Education/Training Program; Admitting Provider Family Medicine; Emergency Provider Emergency Medicine
DX: U07.1 COVID-19 (principal); J12.89 Other viral pneumonia; J96.01 Acute respiratory failure with hypoxia; J45.901 Unspecified asthma with (acute) exacerbation; A08.4 Viral intestinal infection, unspecified; E03.9 Hypothyroidism, unspecified; M94.0 Chondrocostal junction syndrome [Tietze]; E87.6 Hypokalemia; K21.9 Gastro-esophageal reflux disease without esophagitis; F32.9 Major depressive disorder, single episode, unspecified; F41.9 Anxiety disorder, unspecified; Z87.891 Personal history of nicotine dependence; Z79.890 Hormone replacement therapy; Z79.899 Other long term (current) drug therapy; Z85.42 Personal history of malignant neoplasm of other parts of uterus; Z90.710 Acquired absence of both cervix and uterus; Z99.81 Dependence on supplemental oxygen; E86.0 Dehydration
CPT/HCPCS: 36415; 71045; 71275; 80048; 80053; 83605; 83880; 84145; 84484; 85025; 85027; 85379; 85384; 86900; 86901; 87040; 87426; 87635; 93005; 94640; 94667; 94668; 97162; 97803; 99285; J7030; J7040; J7050; Q9967; A4216; J1940; J2405; U0003

== ENCOUNTER 2020-01-29 17:31 | Inpatient (IN) | payer MEDICARE, OTHER, SELFPAY ==
[2020-01-18 17:21] VITALS: BMI 30.5
[2020-01-29] VITALS (11 sets, daily range): BP systolic 125–148; BP diastolic 50–78; PULSE 71–87; RESP 11–20; TEMP 36.6–37.3; O2SAT 96–98; BMI 30.4; BMI 29.5
--- NOTE | 2020-01-29 17:49 | ED.VIS.GEN ---
History of Present Illness Chief Complaint: Shortness of Breath Informant: Patient Narrative: 69-year-old female presenting with shortness of breath and chest pain. She states she is been sick with Covid?19 since the Sunday after . Initially she was tested at an urgent care and she states she started to get shortness of breath and came to the ER. She was admitted to [facility] and treated. She was just sent home yesterday. She states she was told that her CT of her chest was worse than previously but she was sent home on oxygen 4 L via nasal cannula. She states that she is having difficulty getting around. Her daughter is a teacher and her son-in-law is gone during the day. States he is from out of town and staying at her daughter's house in a two-story dwelling. She has trouble ambulating on one floor let alone going up and down the stairs. She complains of generalized weakness and falling. She states that she is more short of breath than previously. Patient states that when she ambulates her pulse ox goes down to 90. Patient states she was sent home on Lasix but does not noted that she has a history of heart failure. He does not have any leg swelling. - Past Medical History (1) COVID-19 Status: Acute Past Medical History - Allergies and Home Meds Allergies/Adverse Reactions: Allergies butorphanol [From Stadol] Allergy (Unknown, Verified 01/29/20 17:36) unknown codeine Allergy (Unknown, Verified 01/29/20 17:36) unknown morphine Allergy (Unknown, Verified 01/29/20 17:36) unknown Primary Care Physician: Care Physician,No Primary [Primary Care Provider] - Prior records reviewed: Yes Past Medical History: - - Asthma, depression, GERD. Surgical History: arthroscopy, knee, hysterectomy Lives: With Family Smoking Status: Never smoker Alcohol: None Drugs: None - Family History Maternal Family History: Reports: Cancer, Heart Disease, Renal Disease Paternal Family History: Reports: Cancer, Heart Disease, Renal Disease Review of Systems General: Reports: Malaise. Denies: Chills, Fever Eyes: Denies: Visual changes - bilaterally, Diplopia ENT: Denies: Bilateral ear pain, Rhinorrhea Cardiovascular: Reports: Chest pain, Heart racing Respiratory: Reports: Dyspnea, Cough, Dyspnea on exertion Gastrointestinal: Denies: Abdominal pain, Nausea, Vomiting Genitourinary: Denies: Dysuria, Hematuria Musculoskeletal: Reports: Myalgias. Denies: Arthralgias Skin: Denies: Rash, Abscess Neurological: Denies: Parasthesia, Numbness Psych: Denies: Suicidal thoughts, Suicidal ideations Physical Exam Vital Signs/Narrative: Vital Signs Temp Pulse Resp BP Pulse Ox 01/29/20 17:32 98 F 79 20 H 138/78 H 97 General: Well nourished, No Acute Distress Head: Normocephalic, Atraumatic Eyes: Perrl, EOMI ENT: Dry mucous membranes. Negative for: No rhinorrhea Cardiovascular: Regular rate, Regular rhythm Respiratory: Diminished, Decreased Air Movement Rectal: Deferred Extremities: Nontender, No edema Skin: Normal color, No rash Neurological: Alert, Oriented x3 Psychological: Normal affect, Normal Mood Diagnostic/Tx/Re-eval - Rhythm Strip Rhythm Strip: Sinus Rhythm Rate: 83 - EKG Initial EKG Interpretation: Sinus Rhythm, No Acute Injury Pattern - Medical Decision Making 69-year-old female presenting with worsening symptoms of shortness of breath. She states she is so fatigued she cannot ambulate and she is currently staying at her daughter's two-story dwelling. She states he has trouble navigating the stairs and she is falling. She feels short of breath and her O2 sats are dropping to 89?90. Patient's daughter and son-in-law both work all day and she stuck at home without any care. She feels she needs to stay in the hospital for placement. Patient was found to have a leukocytosis of nearly 20,000. She is a little dehydrated. Patient's vital signs are stable however. Chest x-ray shows consistency with of Covid?19 as interpreted by myself and the radiologist. EKG is sinus rhythm at 83 bpm without signs of ischemic changes interpreted by me. I feel the patient at this time would benefit from hospitalization. I spoke with infectious disease who recommended just getting blood cultures urine and urine cultures. He recommended holding off on antibiotics for now. He also recommended a procalcitonin which was ordered. This will be followed on the floor. Lactic acid was slightly elevated so she was given 500 cc of IV fluids. Impression: 1. History of Covid?19 2. Leukocytosis 3. Lactic acidosis 4. Dehydration ED Disposition - Plan for ED Patient: Referrals: Care Physician,No Primary [Primary Care Provider] -
--- NOTE | 2020-01-29 18:17 | RAD_ITS ---
STUDY: X-RAY CHEST REASON FOR EXAM: Female, 69 years old. Increasing shortness of breath secondary to COVID 19 infection. TECHNIQUE: Single AP portable view of the chest. COMPARISON: Chest 01/18/2020. CTA of the chest, 01/28/2020. FINDINGS: The lungs are well-expanded. There is diffuse patchy alveolar infiltrates similar to that seen on the CTA. There is no demonstrated pleural abnormality. Normal size heart. Normal mediastinum and jeremiah. Normal visualized pulmonary arteries. Normal visualized aortic arch and descending thoracic aorta. No visualized osseous changes. There is no demonstrated abnormality of the visualized soft tissue structures of the upper abdomen. RAD/Chest 1 View (Portable) IMPRESSION: Patchy infiltrates consistent with but not diagnostic of COVID 19 pneumonia. Electronically Signed: Eric Jonas DO at 18:36 EST Tel [phone], Service support ,
--- NOTE | 2020-01-29 18:52 | EKG12_ITS ---
Test Reason : DYSRHYTHMIA Blood Pressure : / mmHG Vent. Rate : 083 BPM Atrial Rate : 083 BPM P-R Int : 146 ms QRS Dur : 096 ms QT Int : 386 ms P-R-T Axes : 054 002 009 degrees QTc Int : 453 ms Normal sinus rhythm Minimal voltage criteria for LVH, may be normal variant Borderline ECG Confirmed by XIN ZAMORA, MARGARITA ([id number]), movie editor HEDY JUSTIN ([id number]) on 01/30/2020 2:17:47 PM Referred By: CARIDAD Confirmed By:MARGARITA LAUREN MD
[2020-01-29 19:23] LABS: Absolute Lymphocyte Count 1.66 X10^3/uL (0.83-4.51); Absolute Neutrophil Count 15.5 X10^3/uL (2.0-7.7); Basophil# 0.04 X10^3/uL; Basophil% 0.2 % (0-1); Eosinophil# 0.44 X10^3/uL; Eosinophils% 2.2 % (0-5); Hemoglobin 15.3 g/dL (12.0-15.0); Lymphocyte # 1.66 X10^3/ul (4.0); Lymphocyte % 8.4 % (19-41); Mean Corpuscular Hgb 29.2 pg (27.0-32.0); Mean Corpuscular Volume 85.9 fL (81-99); Mean Platelet Vol. 12.1 fl (6.2-12.0); Monocyte# 1.93 X10^3/uL; Monocyte% 9.7 % (0-10); NRBC Flagged by Analyzer 0 % (0-5); Neutrophil # 15.52 X10^3/uL (2.7-7.7); Neutrophil % 78.4 % (47-70); POSITIVE DIFFERENTIAL YES; Platelet Count 408 K/mm3 (150-450); RBC Distribution Width CV 12.2 % (11.6-14.6); Red Blood Count 5.24 M/mm3 (4.2-5.4); White Blood Count 19.8 K/mm3 (4.4-11.0)
[2020-01-29 19:26] LABS: Differential Indicated SCAN CRITERIA MET
[2020-01-29 19:43] LABS: Lactic Acid 2.4 mmol/L (0.4-1.9)
[2020-01-29 19:46] LABS: ALB/GLOB Ratio 0.8 RATIO (0.9-2.4); AST(SGOT) 17 U/L (15-37); Alanine Aminotransfer ALT/SGPT 48 U/L (13-56); Alkaline Phosphatase 91 U/L (45-117); Anion Gap 5 (5-15); BUN 26 mg/dL (7-18); BUN/Creat Ratio 31.7 RATIO (10-20); Chloride 93 mmol/L (98-107); Creatinine, Serum 0.82 mg/dL (0.55-1.02); EST Glomerular Filtration Rate 73 mL/min (>60); Est Glom Filt Rate - Afr Amer 88 mL/min (>60); Estimated Creatinine Clearance 63.48 ml/min; Glucose 116 mg/dL (74-106); Potassium 3.1 mmol/L (3.5-5.1); Sodium Level 133 mmol/L (136-145)
[2020-01-29 19:59] LABS: Anisocytosis RARE; Platelet Estimate SLT INC (ADEQ); Red Cell Morphology N CHROM NORMAL (NORM C&C)
[2020-01-29 21:01] LABS: Mucous, Urine 0 SEEN /hpf (<or=2+); Red Blood Cells-Urine 0 SEEN /hpf (0-5); White Blood Cells 0 SEEN /hpf (0-5)
[2020-01-29 21:05] LABS: Color, Urine Yellow (Yellow); Glucose, Dipstick Normal (Normal); Ketone-Dipstick Negative (Negative); Leukocyte Esterase-Dipstick Negative /ul (Negative); Nitrite-Dipstick Negative (Negative); Occult Blood-Urine Negative /ul (Negative); Protein-Dipstick Negative (Negative); Specific Gravity, Urine 1.015 (1.002-1.030); Urine Bilirubin Dipstick Negative (Negative); Urine Clarity Clear (Clear); Urine Urobilinogen 1 mg/dl (Normal)
[2020-01-29 21:11] LABS: Bacteria 1+ /hpf (None Seen); Squamous Epithelial Cells - UA 0-5 SEEN /hpf (5-10)
[2020-01-29 21:27] LABS: Procalcitonin < 0.01 ng/mL (0.00-0.09)
[2020-01-29 21:36] LABS: Probe Check PASS
--- NOTE | 2020-01-29 21:48 | PCM.HP.STD ---
Problem List (1) COVID-19 Status: Acute History of Present Illness Date of Admission: 01/29/20 Chief Complaint: weakness The patient is a 69 year old F with recent COVID-19 infection and who was discharged from the hospital on 01/28/2020 returning to the emergency department with weakness. Patient is so weak that she cannot stand or move. Associated with symptoms is severe shortness of breath on exertion. Patient's family is unable to take care of patient at this time. Of note patient was admitted in our hospital on 01/18/2020 and discharged on 01/28/2020. She was discharged home on home oxygen. Past Medical History Medical History: Medical History (Last Reviewed 01/29/20 @ 22:[address] Dc Huitron MD) Thyroid disorder E07.9 Allergies butorphanol [From Stadol] Allergy (Unknown, Verified 01/29/20 17:36) unknown codeine Allergy (Unknown, Verified 01/29/20 17:36) unknown morphine Allergy (Unknown, Verified 01/29/20 17:36) unknown Home Medications: Ambulatory Orders Medication Instructions Recorded Albuterol Sulfate [Albuterol 1 puff IH PRN PRN 01/18/20 Sulfate HFA] Duloxetine Hcl [Cymbalta] 60 mg PO QHS 01/18/20 Esomeprazole Mag Trihydrate 20 mg PO DAILY 01/18/20 [Nexium] Levothyroxine [Synthroid] 175 mcg PO DAILY 01/18/20 Acetaminophen [Tylenol Arthritis] 1,300 mg PO DAILY PRN PRN 01/29/20 Furosemide 40 mg PO DAILY 01/29/20 Surgical History: arthroscopy, knee, 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 Denies: Chills, Fever, Weight Change HEENT: Denies: Head Aches, Sinus Congestion, Sinus Drainage Cardiovascular: Denies: Chest Pain, Palpitations Respiratory: Reports: Cough, Shortness of Breath, Sputum production Gastrointestinal: Denies: Abdominal Pain, Nausea, Vomiting Genitourinary: Denies: Dysuria Musculoskeletal: Denies: Joint Pain, Joint Tenderness Skin: Denies: Rash, Wounds Neurological: Denies: Numbness, Tingling, Focal weakness Psychiatric: Denies: Anxiety, Depression, Homicidal Ideations, Suicidal Ideations Hematologic/ Lymphatic: Denies: Easy Bruising, Easy Bleeding VTE Information - Inpt Only VTE Present on Admission: No VTE Mechan Device Prophylaxis: None VTE Pharm Prophylaxis ordered?: Yes Patient Problems: Active and Suspected Problems (Last Reviewed 01/29/20 @ 21:[address] Dc Huitron MD) COVID-19 (Acute) - Physical Exam Vitals/I&O's: Vital Signs Temp Pulse Resp BP Pulse Ox 98.4 F 74 11 L 125/69 H 96 01/29/20 21:31 01/29/20 21:31 01/29/20 21:31 01/29/20 21:31 01/29/20 21:31 Oxygen Flow Rate (L/min) 4 Oxygen Delivery Method Nasal Cannula Weight: 90.8 kg Body Mass Index (BMI) 30.4 Intake and Output for Last 24 Hours 01/27/20 01/28/20 01/29/20 23:59 23:59 23:59 Intake Total 500 / 500 Balance 500 / 500 General: Alert, Oriented x3, Cooperative HEENT: Atraumatic, PERRLA, EOMI, Normocephalic Neck: Supple, No JVD, Negative Carotid Bruits Lungs: Clear to auscultation, Normal air movement Cardiovascular: Regular rate, Regular Rhythm, Normal S1, Normal S2, No murmurs Abdomen: Bowel Sounds Present, Soft, Non Tender Extremities: No edema, Capillary Refill Less than 3 Seconds Skin: No rashes, No breakdown Musculoskeletal: No Tenderness to Palpation of Joints or Extremities Neurological: Cranial nerves II-XII grossly intact Psych/Mental Status: Normal Affect, Appropriate Laboratory Results 01/29/20 18:30: WBC 19.8 H, RBC 5.24, Hgb 15.3 H, Hct 45.0, MCV 85.9, MCH 29.2, MCHC 34.0, RDW Std Deviation 38.0, RDW Coeff of Shirlene 12.2, Plt Count 408, MPV 12.1 H, Immature Gran % (Auto) 1.100 H, Neut % (Auto) 78.4 H, Lymph % (Auto) 8.4 L, [place] % (Auto) 9.7, Eos % (Auto) 2.2, Baso % (Auto) 0.2, Absolute Neuts (auto) 15.5 H, Absolute Lymphs (auto) 1.66, Nucleated RBC % 0, Differential Comment SEE COMMENT, Diff Path Review May nicole, Platelet Estimate SLT INC, RBC Morphology N CHROM, Anisocytosis RARE 01/29/20 18:30: Sodium 133 L, Potassium 3.1 L, Chloride 93 L, Carbon Dioxide 35.0 H, Anion Gap 5, BUN 26 H, Creatinine 0.82, Estim Creat Clear Calc 63.48, Est GFR (MDRD) Af Amer 88, Est GFR (MDRD) Non-Af 73, BUN/Creatinine Ratio 31.7 H, Glucose 116 H, Calcium 9.0, Total Bilirubin 0.50, AST 17, ALT 48, Alkaline Phosphatase 91, Troponin I < 0.015, Total Protein 7.0, Albumin 3.0 L, Globulin 4.0, Albumin/Globulin Ratio 0.8 L 01/29/20 18:30: Lactic Acid 2.4 H* 01/29/20 18:30: Procalcitonin < 0.01 01/29/20 20:30: COVID-19 (JOHNIE) Positive 01/29/20 20:50: Urine Color Yellow, Urine Clarity Clear, Urine pH 6.0, Ur Specific [place] 1.015, Urine Protein Negative, Urine Glucose (UA) Normal, Urine Ketones Negative, Urine Occult Blood Negative, Urine Nitrite Negative, Urine Bilirubin Negative, Urine Urobilinogen 1 H, Ur Leukocyte Esterase Negative, Urine RBC 0 SEEN, Urine WBC 0 SEEN, Ur Squamous Epith Cells 0-5 SEEN, Urine Bacteria 1+, Urine Mucus 0 SEEN Assessment/Plan All Active Problems (Last Reviewed 01/29/20 @ 21:[address] Dc Huitron MD) COVID-19 (Acute) Debility secondary to COVID-19 infection. Patient has completed a course of Decadron and remdesivir. Emergent dependency discussed the case with infectious disease who recommended that urine culture and pro calcitonin be done. Procalcitonin and urine cultures were ordered at emergency department. PT and OT to work with patient. Emergent dependent I discussed the case with infectious disease. Consider discussing case with infectious disease while inpatient. Acute respiratory hypoxemic respiratory insufficiency secondary to COVID-19 infection. Continue oxygen supplementation. Proair as needed. Mucinex ordered. Dehydration Patient noted with elevated BUN and lactic acidosis. Received normal saline bolus at the emergency department. Gentle IV hydration with normal saline and 40 mEq of potassium. Hold home Lasix. Trend lactic acid. Hypokalemia P.o. potassium ordered. Also normal saline with IV potassium ordered. Trend CMP. Depression Cymbalta continued. Arthritis Tylenol arthritis continued. Hypothyroidism Synthroid continued. DVT prophylaxis Subcutaneous Lovenox. OBSV E&M: [id number] Initial observation care L3
[2020-01-29 22:42] LABS: Reflex Lactate? Y
[2020-01-29] MEDS: DULoxetine Hcl 60 MG Capsule PO (23:54)
[2020-01-29] MEDS: Enoxaparin 30 MG/0.3 ML Syringe SC (23:54)
[2020-01-29] MEDS: Potassium Chloride 40 MEQ in 0.9% Normal Saline 1,000 ML 75 MEQ IV (23:54)
[2020-01-29] MEDS: guaiFENesin 1,200 MG Tablet 1200 MG PO (23:54)
[2020-01-29] MEDS: 0.9% Saline Lock 10 ML Syringe IV (23:55)
[2020-01-30] MEDS: Acetaminophen 500 MG Tablet 1000 MG PO (00:02)
[2020-01-30 06:19] VITALS: BP 104/60; PULSE 75; RESP 18; TEMP 36.4; O2SAT 96
[2020-01-30 06:43] LABS: Absolute Lymphocyte Count 1.79 X10^3/uL (0.83-4.51); Absolute Neutrophil Count 12.7 X10^3/uL (2.0-7.7); Basophil# 0.03 X10^3/uL; Basophil% 0.2 % (0-1); Eosinophil# 0.33 X10^3/uL; Hematocrit 41.7 % (37-47); Hemoglobin 13.4 g/dL (12.0-15.0); Lymphocyte # 1.79 X10^3/ul (4.0); Lymphocyte % 10.8 % (19-41); Mean Corp Hgb Conc 32.1 g/dL (32-36); Mean Corpuscular Hgb 28.2 pg (27.0-32.0); Mean Corpuscular Volume 87.8 fL (81-99); Mean Platelet Vol. 10.8 fl (6.2-12.0); Monocyte% 9.1 % (0-10); NRBC Flagged by Analyzer 0 % (0-5); Neutrophil # 12.74 X10^3/uL (2.7-7.7); Neutrophil % 76.9 % (47-70); Platelet Count 339 K/mm3 (150-450); RBC Distribution Width CV 12.1 % (11.6-14.6); RBC Distribution Width SD 39.3 fl (35.1-43.9); Red Blood Count 4.75 M/mm3 (4.2-5.4); White Blood Count 16.6 K/mm3 (4.4-11.0)
[2020-01-30 07:09] LABS: ALB/GLOB Ratio 0.9 RATIO (0.9-2.4); AST(SGOT) 15 U/L (15-37); Alanine Aminotransfer ALT/SGPT 37 U/L (13-56); Albumin, Serum 2.6 g/dL (3.2-5.0); Alkaline Phosphatase 83 U/L (45-117); Anion Gap 2 (5-15); BUN 23 mg/dL (7-18); BUN/Creat Ratio 30.5 RATIO (10-20); Calcium,Total 8.2 mg/dL (8.5-10.1); Chloride 99 mmol/L (98-107); Creatinine, Serum 0.76 mg/dL (0.55-1.02); EST Glomerular Filtration Rate 80 mL/min (>60); Est Glom Filt Rate - Afr Amer 97 mL/min (>60); Estimated Creatinine Clearance 52.05 ml/min; Glucose 89 mg/dL (74-106); Potassium 3.9 mmol/L (3.5-5.1); Protein, Total 5.6 g/dL (6.4-8.2); Sodium Level 137 mmol/L (136-145)
[2020-01-30] MEDS: Levothyroxine 175 MCG Tablet PO (10:42)
[2020-01-30] MEDS: Pantoprazole Sodium 20 MG Tablet PO (10:42)
[2020-01-30] MEDS: Enoxaparin 30 MG/0.3 ML Syringe SC ×2 (10:42→22:59)
[2020-01-30] MEDS: guaiFENesin 1,200 MG Tablet 1200 MG PO ×2 (10:42→22:59)
[2020-01-30 10:55] VITALS: BP 123/59; PULSE 74; RESP 18; TEMP 36.9; O2SAT 93
[2020-01-30 12:41] LABS: Pathologist Review Reviewed
--- NOTE | 2020-01-30 14:09 | US_ITS ---
HISTORY: Right axillary mass. Swelling and redness for one week. Comparison study is a CTA of the chest from January 27. 45 images and for cine clips. Findings: Within the right axilla there is loss of fascicles of fat with induration of the fat. Appears to be hyperemic within the subcutaneous tissues. A tiny amount of fluid is present within this region surrounded by hyperemia. I measure this area of fluid to be 3 x 6 mm. US/Chest IMPRESSION: Indurated right axillary fat consistent with edema and in the setting of infection and erythema, cellulitis. Area of induration measures about 3 cm. Centrally within the area of indurated fat, directly deep to the skin, there is a 3 x 6 mm area of fluid echogenicity, possibly representing a tiny abscess with surrounding cellulitis. at 2144 Reported and signed by: Amado Haro MD Electronically Signed: Amado Haro MD at 21:46 EST Tel , Service support ,
--- NOTE | 2020-01-30 14:11 | PN_ITS ---
Patient Problems: Active and Suspected Problems (Last Reviewed 01/29/20 @ 22:[address] Dc Huitron MD) COVID-19 (Acute) Reason for Visit: failure to thrive Subjective: [place] too weak at home. Vitals/I&O's: Vital Signs Temp Pulse Resp BP Pulse Ox 36.9 C 74 18 123/59 H 93 01/30/20 10:55 01/30/20 10:55 01/30/20 10:55 01/30/20 10:55 01/30/20 10:55 Oxygen Flow Rate (L/min) 3 Oxygen Delivery Method Nasal Cannula Weight: 88.4 kg Body Mass Index (BMI) 29.5 Intake and Output for Last 24 Hours 01/28/20 01/29/20 01/30/20 23:59 23:59 23:59 Intake Total 500 / 500 1170 / 1170 Output Total 0 / 0 Balance 500 / 500 1170 / 1170 General: Alert, No apparent distress HEENT: Atraumatic, Normocephalic Oral: Moist Mucosa, No Gingival or Mucosal Lesions/ Ulcerations Neck: No Nodes, Thyroid Normal Size and Texture Lungs: Normal air movement, - - bibasilar crackles Cardiovascular: Regular rate, Regular Rhythm, Normal S1, Normal S2, No murmurs Abdomen: Bowel Sounds Present, Soft, Non Tender, Non-Distended Psych/Mental Status: Normal Affect, Appropriate Microbiology Past 72 Hours 01/29/20 20:50 Urine Catheter - Catheter Urine Culture - Preliminary Culture exhibits no growth. Laboratory Results 01/29/20 18:30: WBC 19.8 H, RBC 5.24, Hgb 15.3 H, Hct 45.0, MCV 85.9, MCH 29.2, MCHC 34.0, RDW Std Deviation 38.0, RDW Coeff of Shirlene 12.2, Plt Count 408, MPV 12.1 H, Immature Gran % (Auto) 1.100 H, Neut % (Auto) 78.4 H, Lymph % (Auto) 8.4 L, [place] % (Auto) 9.7, Eos % (Auto) 2.2, Baso % (Auto) 0.2, Absolute Neuts (auto) 15.5 H, Absolute Lymphs (auto) 1.66, Nucleated RBC % 0, Differential Comment SEE COMMENT, Diff Path Review Reviewed, Platelet Estimate SLT INC, RBC Morphology N CHROM, Anisocytosis RARE 01/29/20 18:30: Sodium 133 L, Potassium 3.1 L, Chloride 93 L, Carbon Dioxide 35.0 H, Anion Gap 5, BUN 26 H, Creatinine 0.82, Estim Creat Clear Calc 63.48, Est GFR (MDRD) Af Amer 88, Est GFR (MDRD) Non-Af 73, BUN/Creatinine Ratio 31.7 H , Glucose 116 H, Calcium 9.0, Total Bilirubin 0.50, AST 17, ALT 48, Alkaline Phosphatase 91, Troponin I < 0.015, Total Protein 7.0, Albumin 3.0 L, Globulin 4.0, Albumin/Globulin Ratio 0.8 L 01/29/20 18:30: Lactic Acid 2.4 H* 01/29/20 18:30: Procalcitonin < 0.01 01/29/20 20:30: COVID-19 (JOHNIE) Positive 01/29/20 20:50: Urine Color Yellow, Urine Clarity Clear, Urine pH 6.0, Ur Specific [place] 1.015, Urine Protein Negative, Urine Glucose (UA) Normal, Urine Ketones Negative, Urine Occult Blood Negative, Urine Nitrite Negative, Urine Bilirubin Negative, Urine Urobilinogen 1 H, Ur Leukocyte Esterase Negative, Urine RBC 0 SEEN, Urine WBC 0 SEEN, Ur Squamous Epith Cells 0-5 SEEN, Urine Bacteria 1+, Urine Mucus 0 SEEN 01/30/20 00:25: Lactic Acid 1.0 01/30/20 06:15: WBC 16.6 H, RBC 4.75, Hgb 13.4, Hct 41.7, MCV 87.8, MCH 28.2, MCHC 32.1 D, RDW Std Deviation 39.3, RDW Coeff of Shirlene 12.1, Plt Count 339, MPV 10.8, Immature Gran % (Auto) 1.000 H, Neut % (Auto) 76.9 H, Lymph % (Auto) 10.8 L, [place] % (Auto) 9.1, Eos % (Auto) 2.0, Baso % (Auto) 0.2, Absolute Neuts (auto) 12.7 H, Absolute Lymphs (auto) 1.79, Nucleated RBC % 0 01/30/20 06:15: Sodium 137, Potassium 3.9, Chloride 99, Carbon Dioxide 36.0 H, Anion Gap 2 L, BUN 23 H, Creatinine 0.76, Estim Creat Clear Calc 52.05, Est GFR (MDRD) Af Amer 97, Est GFR (MDRD) Non-Af 80, BUN/Creatinine Ratio 30.5 H, Glucose 89, Calcium 8.2 L, Total Bilirubin 0.80, AST 15, ALT 37, Alkaline Phosphatase 83, Total Protein 5.6 L, Albumin 2.6 L, Globulin 3.0, Albumin/Globulin Ratio 0.9 Current Medications Acetaminophen (Acetaminophen 500 Mg Tablet) 1,000 mg PO DAILY PRN PRN PRN Reason: Pain 1-10 or Fever Last Admin: 01/30/20 00:02 Dose: 1,000 mg Documented by: Albuterol Sulfate (Albuterol Sulfate 8 Gm Inhaler (60 Puffs)) 1 puff INHALATION Q4H PRN PRN PRN Reason: sob/wheezing Duloxetine HCl (Duloxetine Hcl 60 Mg Capsule) 60 mg PO QHS [facility] Last Admin: 01/29/20 23:54 Dose: 60 mg Documented by: Enoxaparin Sodium (Enoxaparin 30 Mg/0.3 Ml Syringe) 30 mg SC BID [facility] Last Admin: 01/30/20 10:42 Dose: 30 mg Documented by: Guaifenesin (Guaifenesin 1,200 Mg Tablet) 1,200 mg PO BID [facility] Last Admin: 01/30/20 10:42 Dose: 1,200 mg Documented by: Sodium Chloride () 250 mls @ 15 mls/hr IV .[id number] PRN PRN Reason: Saline Flush Sodium Chloride () 250 mls @ 15 mls/hr IV .[id number] PRN PRN Reason: Additional IVPB Infusion Levothyroxine Sodium (Levothyroxine 175 Mcg Tablet) 175 mcg PO DAILY [facility] Last Admin: 01/30/20 10:42 Dose: 175 mcg Documented by: Miscellaneous Information (Inhaler, Assist Devices 1 Each Spacer) 1 each INHALATION Q4H PRN PRN PRN Reason: sob/wheezing Ondansetron HCl (Ondansetron 4 Mg/2 Ml Vial) 4 mg IV Q8H PRN PRN PRN Reason: NAUSEA/VOMITING Pantoprazole Sodium (Pantoprazole Sodium 20 Mg Tablet) 20 mg PO DAILY [facility] Last Admin: 01/30/20 10:42 Dose: 20 mg Documented by: Sodium Chloride (0.9% Saline Lock 10 Ml Syringe) 10 - 40 ml IV UD PRN PRN Reason: SALINE FLUSH Last Admin: 01/29/20 23:55 Dose: 10 ml Documented by: Trimethoprim/Sulfamethoxazole (Smz/Tmp Ds Tablet) 1 tablet PO BID JUAN JOSE STROKE Vital Signs/Narrative: Vital Signs Temp Pulse Resp BP Pulse Ox 01/30/20 10:55 36.9 C 74 18 123/59 H 93 Medical Necessity - Tobacco Use Smoking Status: Never smoker Assessment/Plan All Active Problems (Last Reviewed 01/29/20 @ 22:[address] Dc Huitron MD) COVID-19 (Acute) 1. failure to thrive * 2/2 prolonged hospitalization and illness * will need SNF upon discharge 2. right axillary swelling * developed during last hospitalization, per the patient * concern for abscess * start bactrim * check US 3. Recent COVID 19 infection * isolation through 02/06 4. Respiratory distress * 2/2 COVID pneumonia and ALI 5. VTE prophylaxis: LMWH Inpatient E&M: 51922 Subs Hosp L2
[2020-01-30 15:00] VITALS: O2SAT 93
--- NOTE | 2020-01-30 15:28 | CASEMGMT ---
GINGER CAN Readmission Note Previous Admission: 01/19/20-01/28/20 Diagnosis: SARS COVID DC Disposition: Home with family, oxygen On return to daughter's home, pt was weakness, shortness of breath and needing maximum assistance with activities. GINGER CAN spoke with pt and daughter and due to safety at home, recommended pt return to ER for placement. Current Admission DX: COVID In ER patient was given 500 ml of NS and IV fluids. Now with R axillary swelling. Starting bactrim and will check US. Patient here for placement as she was needing increased assistance @ home. SW refrral for SNF placement on discharge. Reagan GARCIA RN ACM
[2020-01-30] MEDS: Smz/Tmp Ds Tablet 1 TABLET PO ×2 (15:29→22:59)
[2020-01-30] MEDS: 0.9% Saline Lock 10 ML Syringe IV (15:30)
--- NOTE | 2020-01-30 16:23 | CASEMGMT ---
Social Work Pt readmitted as she was not able to manage at home. Phone call to pt daughter Beba and discussed discharge plans. Pt is not able to return home at this time and SNF will be needed. SW provided list of facilities that are accepting Covid patients. Dgt choices are 1. [facility] 2. [facility] 3. [facility]. Phone call to [facility] and they have no beds available at this time. Phone call to [facility] and they do have beds available. Referral faxed. Return call from Gorge at [facility] and they are able to accept pt over the weekend. [id number] Convalescent form completed in [employer] system. Phone call to pt dgt and updated that pt can discharge to [facility] over the weekend is medically ready and she is agreeable with discharge plan. Phone call to pt room and informed about discharge plan to [facility] and pt is agreeable. Plan: [facility], pt can discharge when medically ready. ADONIS Manzanares
[2020-01-30 17:00] VITALS: BP 118/60; PULSE 75; RESP 18; TEMP 36.6; O2SAT 94
[2020-01-30 17:19] VITALS: O2SAT 93
[2020-01-30 22:57] VITALS: BP 123/58; PULSE 77; RESP 18; TEMP 37.2; O2SAT 94
[2020-01-30] MEDS: DULoxetine Hcl 60 MG Capsule PO (22:59)
[2020-01-31 04:07] VITALS: BP 138/51; PULSE 73; RESP 18; TEMP 36.6; O2SAT 96
[2020-01-31] MEDS: Acetaminophen 500 MG Tablet 1000 MG PO (04:15)
[2020-01-31 10:37] VITALS: BP 146/75; PULSE 83; RESP 20; TEMP 36.8; O2SAT 96
--- NOTE | 2020-01-31 10:38 | PCM.TXEXTCAR ---
- Diet 01/29/20 23:24 Diet: Regular - General Food consistency:: Regular Liquid Consistency:: Regular/Thin Type of Dietary Supplement:: Ensure Enlive Diet Comments: 120 ml ensure enlive BID w/ lunch and dinner - Routine Orders/Code Status O2 Frequency: Continuous Keep PO Greater than or Equal to (%): 3 Routine Lab Work: CBC - Sunday, BMP - Sunday Code Status: Full Code - Therapies Physical Therapy: Eval and Treat Occupational Therapy: Eval and Treat - Allergies/Procedures Done in Hospital Allergies/Adverse Reactions: Allergies butorphanol [From Stadol] Allergy (Unknown, Verified 01/29/20 17:36) unknown codeine Allergy (Unknown, Verified 01/29/20 17:36) unknown morphine Allergy (Unknown, Verified 01/29/20 17:36) unknown - Type of Care/Length of Stay Estimated LOS: Convalescent Care Less Than 30 days Type of Care Needed: Skilled Rehab Potential: Fair Prognosis: Good - Additional Orders/Day of Discharge Day of Discharge: 01/31/20 - Dietary and Speech Recommendations Dietitian Recommendations/Changes: Continue Regular diet as ordered to help optimize intake at meals. - Follow Up Care Primary Care Physician: Care Physician,No Primary [Primary Care Provider] -
--- NOTE | 2020-01-31 10:40 | DS.PCM_ITS ---
Discharge Date and Diagnosis - Problem List Patient Problems: Active and Suspected Problems (Last Reviewed 01/29/20 @ 22:[address] Dc Huitron MD) COVID-19 (Acute) Date of Admission: 01/29/20 - Primary Discharge Diagnosis Acute Problems: Active Problems (Last Reviewed 01/29/20 @ 22:[address] Dc Huitron MD) COVID-19 (Acute) right axilla cellulitis Hospital Course and Treatment Imaging Results: Clinical Impression(s) from Imaging Studies Chest X-Ray 01/29/20 18:17 IMPRESSION: Patchy infiltrates consistent with but not diagnostic of COVID 19 pneumonia. Electronically Signed: Eric Jonas DO at 18:36 EST Tel [phone], Service support , Chest Ultrasound 01/30/20 14:09 IMPRESSION: Indurated right axillary fat consistent with edema and in the setting of infection and erythema, cellulitis. Area of induration measures about 3 cm. Centrally within the area of indurated fat, directly deep to the skin, there is a 3 x 6 mm area of fluid echogenicity, possibly representing a tiny abscess with surrounding cellulitis. at 2147 Reported and signed by: Amado Haro MD Electronically Signed: Amado Haro MD at 21:46 EST Tel , Service support , Operations: None Procedures: None Summary of Care Provided: The patient is a 69 year old F presents 1 day after being discharged with a COVID-19. Patient was just too weak at home. Family is unable to care for her and brought her back to the hospital. Patient was still on 4 L and eventually weaned down to 3. Patient brought up to my attention that she had some swelling in her right axilla that was present during the previous hospitalization but I was not made aware that. Patient had a swelling in her right axilla. Patient had ultrasound that showed inflammation and a small area of fluid that was about 3 to 6 mm. I discussed with general surgery and they stated that it is not amenable to I&D at this time and just to recommend antibiotics. She could follow-up with general surgery as outpatient if things do get worse. Overall that the area appears to be improved. Patient will continue with Bactrim for total of 7 days. [] Patient Problems: Active and Suspected Problems (Last Reviewed 01/29/20 @ 22:[address] Dc Huitron MD) COVID-19 (Acute) - Physical Exam Vitals/I&O's: Vital Signs Temp Pulse Resp BP Pulse Ox 36.8 C 83 20 H 146/75 H 96 01/31/20 10:37 01/31/20 10:37 01/31/20 10:37 01/31/20 10:37 01/31/20 10:37 Oxygen Flow Rate (L/min) 3 Oxygen Delivery Method Nasal Cannula Weight: 88.4 kg Body Mass Index (BMI) 29.5 Intake and Output for Last 24 Hours 01/29/20 01/30/20 01/31/20 23:59 23:59 23:59 Intake Total 500 / 500 1170 / 1620 950 / 950 Output Total 500 / 500 Balance 500 / 500 670 / 1120 950 / 950 General: Alert, No apparent distress HEENT: Atraumatic, Normocephalic Oral: Moist Mucosa, No Gingival or Mucosal Lesions/ Ulcerations Neck: No Nodes, Thyroid Normal Size and Texture Lungs: Clear to auscultation, Normal air movement, No rhonchi, No wheeze Cardiovascular: Regular rate, Regular Rhythm, Normal S1, Normal S2 Abdomen: Bowel Sounds Present, Soft, Non Tender, Non-Distended Extremities: No edema, No Calf Tenderness Microbiology Past 72 Hours 01/29/20 20:50 Urine Catheter - Catheter Urine Culture - Preliminary Culture exhibits no growth. Laboratory Results 01/29/20 18:30: Diff Path Review Reviewed Current Medications Acetaminophen (Acetaminophen 500 Mg Tablet) 1,000 mg PO DAILY PRN PRN PRN Reason: Pain 1-10 or Fever Last Admin: 01/31/20 04:15 Dose: 1,000 mg Documented by: Albuterol Sulfate (Albuterol Sulfate 8 Gm Inhaler (60 Puffs)) 1 puff INHALATION Q4H PRN PRN PRN Reason: sob/wheezing Duloxetine HCl (Duloxetine Hcl 60 Mg Capsule) 60 mg PO QHS JUAN JOSE Last Admin: 01/30/20 22:59 Dose: 60 mg Documented by: Enoxaparin Sodium (Enoxaparin 30 Mg/0.3 Ml Syringe) 30 mg SC BID [facility] Last Admin: 01/30/20 22:59 Dose: 30 mg Documented by: Guaifenesin (Guaifenesin 1,200 Mg Tablet) 1,200 mg PO BID [facility] Last Admin: 01/30/20 22:59 Dose: 1,200 mg Documented by: Sodium Chloride () 250 mls @ 15 mls/hr IV .[id number] PRN PRN Reason: Saline Flush Sodium Chloride () 250 mls @ 15 mls/hr IV .[id number] PRN PRN Reason: Additional IVPB Infusion Levothyroxine Sodium (Levothyroxine 175 Mcg Tablet) 175 mcg PO DAILY [facility] Last Admin: 01/30/20 10:42 Dose: 175 mcg Documented by: Miscellaneous Information (Inhaler, Assist Devices 1 Each Spacer) 1 each INHALATION Q4H PRN PRN PRN Reason: sob/wheezing Ondansetron HCl (Ondansetron 4 Mg/2 Ml Vial) 4 mg IV Q8H PRN PRN PRN Reason: NAUSEA/VOMITING Pantoprazole Sodium (Pantoprazole Sodium 20 Mg Tablet) 20 mg PO DAILY [facility] Last Admin: 01/30/20 10:42 Dose: 20 mg Documented by: Sodium Chloride (0.9% Saline Lock 10 Ml Syringe) 10 - 40 ml IV UD PRN PRN Reason: SALINE FLUSH Last Admin: 01/30/20 15:30 Dose: 10 ml Documented by: Trimethoprim/Sulfamethoxazole (Smz/Tmp Ds Tablet) 1 tablet PO BID [facility] Last Admin: 01/30/20 22:59 Dose: 1 tablet Documented by: Discharge Diet: No Restrictions Call your doctor if your incision/area has: Increased Pain/ Swelling, Increased Redness, Foul Smelling Discharge Call your doctor if you observe: Fever of 101 or Higher, Shortness of breath Home Medications: Medications to take at Discharge Albuterol Sulfate [Albuterol Sulfate HFA] 1 puff IH PRN PRN 01/18/20 Duloxetine Hcl [Cymbalta] 60 mg PO QHS 01/18/20 Esomeprazole Mag Trihydrate [Nexium] 20 mg PO DAILY 01/18/20 Levothyroxine [Synthroid] 175 mcg PO DAILY 01/18/20 Acetaminophen [Tylenol Arthritis] 1,300 mg PO DAILY PRN PRN 01/29/20 Furosemide 40 mg PO DAILY 01/29/20 Enoxaparin [Lovenox] 30 mg SC BID syringe 01/31/20 Guaifenesin [Mucinex] 1,200 mg PO BID tab 01/31/20 Smz/Tmp Ds [Bactrim Ds] 1 tab PO BID tab 01/31/20 Primary Care Physician: Care Physician,No Primary [Primary Care Provider] - Disposition: Group Home facility Minutes spent on discharge:: 32 Patient Condition:: Fair Medical Necessity - Tobacco Use Smoking Status: Never smoker Meaningful Use Info Meaningful Use Diagnoses (Choose all that apply): None applicable Inpatient E&M: 20493 Disch Hosp
[2020-01-31] MEDS: Pantoprazole Sodium 20 MG Tablet PO (10:46)
[2020-01-31] MEDS: Enoxaparin 30 MG/0.3 ML Syringe SC (10:46)
[2020-01-31] MEDS: Levothyroxine 175 MCG Tablet PO (10:46)
[2020-01-31] MEDS: Smz/Tmp Ds Tablet 1 TABLET PO (10:46)
[2020-01-31] MEDS: guaiFENesin 1,200 MG Tablet 1200 MG PO (10:46)
[2020-01-31 11:00] VITALS: O2SAT 95
[2020-01-31 15:20] VITALS: BP 126/53; PULSE 75; RESP 18; TEMP 36.9; O2SAT 95
--- NOTE | 2020-01-31 15:39 | NURSING ---
Attempted to contact [facility] multiple times to call report. Was informed to call back later, d/t everyone busy. attempted to call back twice since that time with no answer.
--- NOTE | 2020-01-31 16:35 | NURSING ---
ATTEMPTED TWICE MORE TO CALL REPORT TO [facility], PICK-UP FOR PT HAS BEEN MOVED BACK [facility] .UNTIL [phone]
== END 2020-01-31 18:15 | disposition skilled nursing facility (03) | DRG 640 ==
LOC: ED 18:39 → MS2 21:39
PROVIDERS: Admitting Provider Hospitalist; Emergency Provider Student in an Organized Health Care Education/Training Program
DX: E86.0 Dehydration (principal); U07.1 COVID-19; R62.7 Adult failure to thrive; J12.89 Other viral pneumonia; L03.111 Cellulitis of right axilla; E87.2 Acidosis; R06.03 Acute respiratory distress; R09.02 Hypoxemia; E87.6 Hypokalemia; F32.9 Major depressive disorder, single episode, unspecified; E03.9 Hypothyroidism, unspecified; M19.90 Unspecified osteoarthritis, unspecified site; Z79.890 Hormone replacement therapy; Z85.42 Personal history of malignant neoplasm of other parts of uterus; Z86.19 Personal history of other infectious and parasitic diseases; Z90.710 Acquired absence of both cervix and uterus
CPT/HCPCS: 36415; 71045; 76604; 80053; 81001; 83605; 84145; 84484; 85025; 87040; 87077; 87086; 87088; 87186; 87635; 93005; 97162; 97166; 99285; J7030; A4216; U0002